=== PATIENT | female | born 1985 | race Caucasian/White ===

== ENCOUNTER → 2016-06-02 | Outpatient (CLI) | payer BC, OTHER ==
[~2016-06-02] MED LIST: ALBU0.5N2 NEB; ALBU18002 PO; BUPR150T5 PO; CEPH500C2 PO; DULO60CA44 PO; EPIN1INJ37 IM; ESOM1CAP34 PO; HYDR-5688 PO; IMT100 PO; JNL12021 PO; LAMO100T16 PO; LAMO200T38 PO; LEVO125T72 PO; LURA1TAB2 PO; METO1TAB71 PO; MIRT15TA3 PO; MONT1TAB3 PO; NRN800 PO; NXM/40 PO; OXYC1TAB3 PO; PRED10TA PO; SNG10 PO; SYN125 PO; ULT50 PO
--- NOTE | 2016-06-02 15:27 | DIAGNOSTIC IMAGING REPORT ---
MRI OF THE LEFT KNEE CLINICAL HISTORY: Left knee pain. COMPARISON STUDY: No priors. TECHNIQUE: MRI of the left knee was performed utilizing proton density, T1, and T2-weighted sequences in the axial, sagittal, coronal planes. IV contrast was not administered for this examination. The examination is significantly degraded by open MRI technique. Interpretation is suboptimal without plain film correlate. FINDINGS: Menisci: The medial and lateral menisci are intact. Ligaments: The anterior and posterior cruciate ligaments are intact. There is mild thickening and irregularity of the medial collateral ligament suggesting age indeterminant injury. The fibers appear intact and there is no surrounding fluid/edema. The lateral collateral ligament complex appears preserved. Extensor mechanism: The extensor mechanism is intact. Hoffa's fat pad is normal in appearance. Articular cartilage and bone: The articular cartilage appears maintained all 3 compartments. Normal marrow signal is preserved of the visualized bony structures. Joint effusion: Trace. Soft tissues: There is pretibial and prepatellar soft tissue edema. The musculature surrounding the knee joint demonstrates symmetric atrophy. The musculature is normal in signal intensity. IMPRESSION: 1. There is mild thickening and irregularity of the medial collateral ligament suggesting age indeterminant injury. There is no surrounding edema and this may be chronic. The fibers of the liver appear intact. Clinical correlation will be required. 2. There is no evidence of meniscal injury. The cruciate ligaments and the lateral collateral complex are preserved. 3. Pretibial and prepatellar soft tissue edema is noted. Electronically signed by: Jacob Choudhary M.D. 06/02/2016 3:25 PM Dictated Date/Time: 06/02/2016 3:17 PM
== END | disposition home or self-care (01) ==
LOC: C.OPENMRI 13:46
PROVIDERS: ATTEND Family Medicine
DX: M25.562 Pain in left knee (principal)

== ENCOUNTER 2016-11-07 17:13 | Emergency (ER) | payer BC, OTHER ==
[~2016-11-07] VITALS: Ht 158.8 cm; Wt 118.3 kg
[~2016-11-07 17:13] MED LIST changes: -BUPR150T5 PO; -CEPH500C2 PO; -EPIN1INJ37 IM; -ESOM1CAP34 PO; -HYDR-5688 PO; -IMT100 PO; -LAMO200T38 PO; -MIRT15TA3 PO; -OXYC1TAB3 PO; -PRED10TA PO; -SNG10 PO; -SYN125 PO; -ULT50 PO
[2016-11-07 17:19] VITALS: TEMP 36.5; Ht 158.8 cm; Wt 118.3 kg
[2016-11-07] MEDS ORDERED: SODIUM CHLORIDE 0.9% 1000ML 1,000 ML IV STA (17:58)
[2016-11-07] MEDS ORDERED: KETOROLAC TROMETHAMINE 30 MG/ML VIAL IV STA (17:58)
[2016-11-07] MEDS ORDERED: ONDANSETRON INJ 2 MG/ML 2 ML VIAL IV STA (17:58)
--- NOTE | 2016-11-07 18:36 | EMERGENCY ROOM VISIT NOTE ---
History Report prepared by Paulina: Shanell Mason Under the Supervision of: Dr. Subhash Elizabeth D.O. First contact with patient: 17:49 Chief Complaint: RIB PAIN Stated Complaint: RT RIB PAIN History of Present Illness The patient is a 30 year old female who presents to the Emergency Room with complaints of sharp constant right rib pain that started a couple months ago. The patient saw her PCP two days ago and was put on Prednisone. The patient states that her PCP believes her pain is nerve related. She also states that her pain worsens with movement. She denies sob, swelling, abdominal pain, or leg pain. The patient was told to come into the ED by her PCP. She has a history of thyroid disease, bipolar disorder and social anxiety. The patient has had cholecystectomy, appendectomy, and her tonsils and adenoids removed. The patient denies any falls or injuries. Source of History: patient Onset: a couple months ago Position: other (right rib) Quality: sharp Timing: constant Modifying Factors (Worsening): movement Associated Symptoms: No SOB, No abdominal pain Note: Pt denies swelling or leg pain Review of Systems See HPI for pertinent positives & negatives. A total of 10 systems reviewed and were otherwise negative. 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 (16) Upper respiratory infection Surgical Problems: (1) Appendectomy (2) section (3) History of - tubal ligation (4) Hx of cholecystectomy Family History Diabetes mellitus Heart disease Social History Smoking Status: Never Smoker Alcohol Use: none Drug Use: none Marital Status: Housing Status: lives with family Occupation Status: unemployed Current/Historical Medications Scheduled Bupropion Hcl (Bupropion Hcl Xl), 150 MG PO QAM Cephalexin Monohydrate (Keflex), 500 MG PO QID Esomeprazole Magnesium (Esomeprazole Magnesium), 40 MG PO BID Ethinyl Estradiol/Norethindr (Junel 04/04), 1 TAB PO DAILY Gabapentin (Gabapentin), 800 MG PO TID Lamotrigine (Lamictal), 200 MG PO BID Levothyroxine Sodium (Synthroid), 125 MCG PO DAILY Lurasidone Hcl (Latuda), 120 MG PO QPM Metoprolol Succinate (Toprolxl (Toprol-Xl), 200 MG PO DAILY Mirtazapine (Remeron), 15 MG PO HS Montelukast Sod (Montelukast Sodium), 10 MG PO HS Prednisone (Prednisone), 10 MG PO UD Scheduled PRN Albuterol Sulfate (Proair Respiclick), 2 PUFFS PO QID PRN for SOB/Wheezing Epinephrine (Epinephrine), 0.3 MG IM UD PRN for ALLERGIC REACTION Oxycodone Immediate Rel Tab (Roxicodone Ir), 1-2 TAB PO Q4H PRN for Severe Pain Sumatriptan Succinate (Imitrex), 100 MG PO UD PRN for Migraine Tramadol HCl (Tramadol HCl), 50 MG PO Q8 PRN for Pain Allergies Coded Allergies: Latex1 -Allergic Contact Dermititis (Verified Allergy, Intermediate, HIVES , 03/10/16) Benzoyl Peroxide (Verified Allergy, Mild, RASH, 03/10/16) BEE STING (Verified Allergy, Unknown, ANAPHYLAXIS, 03/10/16) Penicillins (Verified Allergy, Unknown, 03/10/16) Permethrin (Verified Allergy, Unknown, RASH, 03/10/16) Promethazine (Verified Adverse Reaction, Mild, VOMITING , 03/10/16) Physical Exam Vital Signs Date Time Temp Pulse Resp B/P (MAP) Pulse Ox O2 Delivery O2 Flow Rate FiO2 11/07/16 20:40 92 16 161/118 97 11/07/16 19:45 97 16 173/106 97 Room Air 11/07/16 19:30 97 16 176/101 96 Room Air 11/07/16 19:15 102 13 167/110 96 Room Air 11/07/16 19:00 103 21 167/105 96 Room Air 11/07/16 18:43 103 18 178/112 99 Room Air 11/07/16 18:41 101 11/07/16 17:19 36.5 104 18 172/108 97 Room Air Physical Exam GENERAL: Patient is awake, alert, and in no acute distress. Patient is resting comfortably and showing no signs of anxiety EYES: The conjunctivae are clear. The pupils are round and reactive. EARS, NOSE, MOUTH AND THROAT: The nose is without any evidence of any deformity. Mucous membranes are moist tongue is midline NECK: The neck is nontender and supple. CARDIOVASCULAR: Tachycardic rate and rhythm noted there no murmurs rubs or gallops normal S1 normal S2 GASTROINTESTINAL: The abdomen is soft. Bowel sounds are present in all quadrants. Abdomen is nontender BACK: Right CVA tenderness to percussion. No midline tenderness or or step-off noted range of motion in flexion extension as well as rotation no signs of muscle spasm noted MUSCULOSKELETAL/EXTREMITIES: There is no evidence of gross deformity full range of motion is noted in the hips and shoulders SKIN: There is no obvious evidence of any rash. There are no petechiae, pallor or cyanosis noted. NEUROLOGIC: Patient is awake alert and oriented x3 strength is symmetric patellar reflexes are 2+ bilaterally Medical Decision & Procedures ER Provider Diagnostic Interpretation: Radiology results as stated below per my review and radiologist interpretation: CHEST ONE VIEW PORTABLE FINDINGS: Cardiomediastinal silhouette normal. Lungs and pleural spaces clear. Osseous structures normal. Upper abdomen normal. IMPRESSION: 1. No acute cardiopulmonary disease. Electronically signed by: Padilla Kamara M.D. ABD/PELVIS NO IV OR ORAL CONT FINDINGS: Lung bases are clear. No evidence of pneumoperitoneum. The imaged inferior cardiac chambers are unremarkable. Hepatomegaly is noted with hepatosteatosis. Prior cholecystectomy. Spleen, pancreas and adrenal glands are within normal limits. Kidneys, ureters, urinary bladder, uterus and adnexa are unremarkable. No renal calculi or hydronephrosis. The abdominal aorta is normal in both course and caliber. No bulky retroperitoneal adenopathy. There is minimal nonspecific stranding surrounding the superior mesenteric artery. There is no bowel obstruction. The appendix is not definitively seen, however no secondary evidence of acute appendicitis. No right lower quadrant inflammatory changes. Note is made of diastases recti. Small fat filled umbilical hernia is noted with diastases of 1.4 cm. Soft tissues are unremarkable with patient obesity noted. The bones appear intact. Posterior disc osteophyte complex formation noted at L5-S1. IMPRESSION: 1. No acute intra-abdominal or intrapelvic abnormality identified. No evidence of acute appendicitis or bowel obstruction. 2. Hepatosteatosis with hepatomegaly. 3. Prior cholecystectomy. 4. Diastases recti noted with small fat filled periumbilical hernia. The above report was generated using voice recognition software. It may contain grammatical, syntax or spelling errors. Electronically signed by: Naveen Hodges M.D. Laboratory Results 11/07/16 18:14 Red Blood Count 4.61, Mean Corpuscular Volume 88.9, Mean Corpuscular Hemoglobin 30.2, Mean Corpuscular Hemoglobin Concent 33.9, Mean Platelet Volume 9.7, Neutrophils (%) (Auto) 64.2, Lymphocytes (%) (Auto) 26.7, Monocytes (%) (Auto) 7.7, Eosinophils (%) (Auto) 0.3, Basophils (%) (Auto) 0.3, Neutrophils # (Auto) 9.35, Lymphocytes # (Auto) 3.89, Monocytes # (Auto) 1.12, Eosinophils # (Auto) 0.05, Basophils # (Auto) 0.04 11/07/16 18:14 Test 11/07/16 18:14 11/07/16 18:24 White Blood Count 14.56 K/uL (4.8-10.8) Red Blood Count 4.61 M/uL (4.2-5.4) Hemoglobin 13.9 g/dL (12.0-16.0) Hematocrit 41.0 % (37-47) Mean Corpuscular Volume 88.9 fL (80-100) Mean Corpuscular Hemoglobin 30.2 pg (25-34) Mean Corpuscular Hemoglobin Concent 33.9 g/dl (32-36) Platelet Count 254 K/uL (130-400) Mean Platelet Volume 9.7 fL (7.4-10.4) Neutrophils (%) (Auto) 64.2 % Lymphocytes (%) (Auto) 26.7 % Monocytes (%) (Auto) 7.7 % Eosinophils (%) (Auto) 0.3 % Basophils (%) (Auto) 0.3 % Neutrophils # (Auto) 9.35 K/uL (1.4-6.5) Lymphocytes # (Auto) 3.89 K/uL (1.2-3.4) Monocytes # (Auto) 1.12 K/uL (0.11-0.59) Eosinophils # (Auto) 0.05 K/uL (0-0.5) Basophils # (Auto) 0.04 K/uL (0-0.2) RDW Standard Deviation 39.7 fL (36.4-46.3) RDW Coefficient of Variation 12.4 % (11.5-14.5) Immature Granulocyte % (Auto) 0.8 % Immature Granulocyte # (Auto) 0.11 K/uL (0.00-0.02) Prothrombin Time 9.8 SECONDS (9.0-12.0) Prothromb Time International Ratio 0.9 (0.9-1.1) Activated Partial Thromboplast Time 24.8 SECONDS (21.0-31.0) Partial Thromboplastin Ratio 1.0 Urine Color YELLOW Urine Appearance CLOUDY (CLEAR) Urine pH 6.0 (4.5-7.5) Urine Specific [place] 1.028 (1.000-1.030) Urine Protein TRACE (NEG) Urine Glucose (UA) NEG (NEG) Urine Ketones NEG (NEG) Urine Occult Blood TRACE (NEG) Urine Nitrite POS (NEG) Urine Bilirubin NEG (NEG) Urine Urobilinogen NEG (NEG) Urine Leukocyte Esterase MODERATE (NEG) Urine WBC (Auto) >30 /hpf (0-5) Urine RBC (Auto) 5-10 /hpf (0-4) Urine Hyaline Casts (Auto) 1-5 /lpf (0-5) Urine Epithelial Cells (Auto) >30 /lpf (0-5) Urine Bacteria (Auto) 4+ (NEG) Anion Gap 7.0 mmol/L (3-11) Est Creatinine Clear Calc Drug Dose 105.9 ml/min Estimated GFR () 93.0 Estimated GFR (Non- 80.3 BUN/Creatinine Ratio 15.3 (10-20) Calcium Level 9.5 mg/dl (8.5-10.1) Total Bilirubin 0.2 mg/dl (0.2-1) Direct Bilirubin < 0.1 mg/dl (0-0.2) Aspartate Amino Transf (AST/SGOT) 15 U/L (15-37) Alanine Aminotransferase (ALT/SGPT) 20 U/L (12-78) Alkaline Phosphatase 119 U/L (45-117) Troponin I < 0.015 ng/ml (0-0.045) Total Protein 7.9 gm/dl (6.4-8.2) Albumin 3.6 gm/dl (3.4-5.0) Lipase 136 U/L (73-393) Human Chorionic Gonadotropin, Qual NEG (NEG) Bedside D-Dimer 265 ng/mlFEU (0-450) Laboratory results per my review. Medications Administered Medications (Trade) Dose Ordered Sig/Jenniffer Route Start Time Stop Time Status Last Admin Dose Admin Ketorolac Tromethamine (Toradol Inj) 30 mg NOW STAT IV 11/07/16 17:58 11/07/16 18:00 DC 11/07/16 18:40 30 MG Sodium Chloride 1,000 ml @ 999 mls/hr Q1H1M STAT IV 11/07/16 17:58 11/07/16 18:58 DC 11/07/16 18:40 999 MLS/HR Ondansetron HCl (Zofran Inj) 4 mg NOW STAT IV 11/07/16 17:58 11/07/16 18:00 DC 11/07/16 18:39 4 MG Ceftriaxone Sodium (Rocephin Inj) 1 gm NOW STAT IV 11/07/16 18:59 11/07/16 19:00 DC 11/07/16 19:06 1 GM Ondansetron HCl (ZOFRAN ODT 4MG Home Pack) 1 homepack UD ONCE PO 11/07/16 20:30 11/07/16 20:31 DC 11/07/16 20:40 1 HOMEPACK Oxycodone HCl (Roxicodone Immediate Rel 5MG Home Pack) 1 homepack UD ONCE PO 11/07/16 20:30 11/07/16 20:31 DC 11/07/16 20:40 1 HOMEPACK ECG Indication: other (rib pain ) Rate (beats per minute): 98 Rhythm: normal sinus Findings: no ectopy Comparison ECG Date: 03/10/16 Change: no significant change ED Course 1750: The patient was evaluated in room A10. A complete history and physical examination were performed. 1757: Zofran Inj 4 mg IV, NSS 1,000 ml @ 999 mls/hr IV, Toradol Inj 30 mg IV. 1858: Rocephin Inj 1 gm IV. 2029: Oxycodone HCL 1 homepack PO, Ondansetron HCl 1 homepack PO. 2037:: Upon reevaluation, the patient is resting. I discussed the results and treatment plan with the patient. She verbalized agreement of the treatment plan. She was discharged home. Medical Decision Differential diagnosis: Etiologies such as musculoskeletal, disc herniation, fracture, aortic disease, metastatic disease, cord compression, discitis, infection, renal colic, gastrointestinal, acute exacerbation of chronic back pain, sciatica, cauda equina, as well as others were entertained. Nursing notes reviewed. The patient is a 30-year-old female who presented to the emergency department for an evaluation of right flank pain. The patient has had ongoing symptoms for the last few weeks. She was seen by her primary care physician and was started on pain medication but her pain worsened so she presented to the emergency Department this evening. Her pain appears to be more consistent with right flank pain. Urinalysis did reveal signs of urinary tract infection. Because of the ongoing pain I was concerned this could be consistent with renal pathology so CT the abdomen and pelvis was obtained. I discussed the patient's laboratory and radiographic studies with her. She was treated with IV fluids IV pain medicine and IV antibiotics for presumed urinary tract infection. She was feeling much better. She was encouraged to rest and avoid any strenuous activity. She was also encouraged to continue all medications as prescribed and follow-up with her primary care physician she is possible. Otherwise she was encouraged to return to the emergency department immediately if symptoms change worsen or the need arises. Medication Reconcilliation Current Medication List: was personally reviewed by me Blood Pressure Screening Patient's blood pressure: Elevated blood pressure Blood pressure disposition: Referred to PCP Impression Primary Impression: Right flank pain Additional Impression: UTI (urinary tract infection) Scribe Attestation The scribe's documentation has been prepared under my direction and personally reviewed by me in its entirety. I confirm that the note above accurately reflects all work, treatment, procedures, and medical decision making performed by me. Departure Information Dispostion Home / Self-Care Prescriptions Oxycodone Immediate Rel Tab (ROXICODONE IR) 5 Mg Tab 1-2 TAB PO Q4H Y for Severe Pain, #24 TAB Prov: Subhash Elizabeth, DO 11/07/16 Cephalexin Monohydrate (KEFLEX) 500 Mg Cap 500 MG PO QID, #28 CAP Prov: Subhash Elizabeth, DO 11/07/16 Referrals Naveen Saunders M.D. (PCP) Forms HOME CARE DOCUMENTATION FORM, IMPORTANT VISIT INFORMATION, WORK / SCHOOL INSTRUCTIONS Patient Instructions My [facility], Urinary Tract Infecs Women Additional Instructions Continue all medications as prescribed. Continue using Motrin and Tylenol as directed for mild pain. Start the antibiotic tomorrow. Return to the emergency department immediately if symptoms change worsen or the need arises. Call your family to schedule a follow-up appointment. Her blood pressure was also elevated today in the emergency department. Be sure to have this rechecked with your family doctor and continue taking her medications for blood pressure. Problem Qualifiers Additional Impression:
--- NOTE | 2016-11-07 18:36 | DIAGNOSTIC IMAGING REPORT ---
CHEST ONE VIEW PORTABLE CLINICAL HISTORY: 30 years-old Female presenting with ABDOMINAL PAIN/GI. TECHNIQUE: Portable upright AP view of the chest was obtained. COMPARISON: 03/10/2016. FINDINGS: Cardiomediastinal silhouette normal. Lungs and pleural spaces clear. Osseous structures normal. Upper abdomen normal. IMPRESSION: 1. No acute cardiopulmonary disease. Electronically signed by: Naveen Hodges M.D. 11/07/2016 6:35 PM Dictated Date/Time: 11/07/2016 6:34 PM
[2016-11-07] MEDS ORDERED: SNG10 PO (18:44)
[2016-11-07] MEDS ORDERED: SYN125 PO (18:44)
[2016-11-07] MEDS ORDERED: IMT100 PO (18:44)
[2016-11-07] MEDS ORDERED: BUPR150T5 PO (18:44)
[2016-11-07] MEDS ORDERED: EPIN1INJ37 IM (18:44)
[2016-11-07] MEDS ORDERED: PRED10TA PO (18:44)
[2016-11-07] MEDS ORDERED: LAMO200T38 PO (18:44)
[2016-11-07] MEDS ORDERED: ULT50 PO (18:44)
[2016-11-07] MEDS ORDERED: MIRT15TA3 PO (18:44)
[2016-11-07] MEDS ORDERED: ESOM1CAP34 PO (18:44)
[2016-11-07 18:50] LABS: BASO % 0.3 %; BASO ABS # 0.04 K/uL (0-0.2); COMPLETE YES; EOS % 0.3 %; IG% 0.8 %; LYMPH % 26.7 %; LYMPH ABS # 3.89 K/uL (1.2-3.4); MEAN CELL VOLUME 88.9 fL (80-100); MEAN CORPUSCULAR HEMOGLOBIN 30.2 pg (25-34); MEAN CORPUSCULAR HGB CONC 33.9 g/dl (32-36); MEAN PLATELET VOLUME 9.7 fL (7.4-10.4); MONO % 7.7 %; NEUT % 64.2 %; PLATELET COUNT 254 K/uL (130-400); RED BLOOD COUNT 4.61 M/uL (4.2-5.4); WHITE BLOOD COUNT 14.56 K/uL (4.8-10.8)
[2016-11-07 18:52] LABS: URINE APPEARANCE CLOUDY (CLEAR); URINE BILIRUBIN NEG (NEG); URINE COLOR YELLOW; URINE EPITHELIAL CELL AUTO >30 /lpf (0-5); URINE NITRITE POS (NEG); URINE SPECIFIC GRAVITY 1.028 (1.000-1.030); UROBILINOGEN NEG (NEG)
[2016-11-07 18:55] LABS: MANUAL MICROSCOPIC REQUIRED? NO; REVIEW REQ? NO
[2016-11-07 18:58] LABS: ALT/SGPT 20 U/L (12-78); AST/SGOT 15 U/L (15-37); BLOOD UREA NITROGEN 14 mg/dl (7-18); BUN/CREATININE RATIO 15.3 (10-20); CALCIUM 9.5 mg/dl (8.5-10.1); CARBON DIOXIDE 28 mmol/L (21-32); CHLORIDE 102 mmol/L (98-107); CREATININE 0.94 mg/dl (0.60-1.20); GLUCOSE 130 mg/dl (70-99); POTASSIUM 3.3 mmol/L (3.5-5.1); SODIUM 137 mmol/L (136-145)
[2016-11-07] MEDS ORDERED: CEFTRIAXONE SOD INJ 1 GM ADDVIAL IV STA (18:59)
[2016-11-07 19:00] LABS: INR 0.9 (0.9-1.1); PROTHROMBIN TIME (PATIENT) 9.8 SECONDS (9.0-12.0)
[2016-11-07 19:03] LABS: ALKALINE PHOSPHATASE 119 U/L (45-117)
[2016-11-07 19:21] LABS: PREG INTERNAL NEGATIVE QC NEG CLEAR BACKGROUND; PREG INTERNAL POSITIVE QC POS CONTROL LINE
--- NOTE | 2016-11-07 20:15 | DIAGNOSTIC IMAGING REPORT ---
ABD/PELVIS NO IV OR ORAL CONT HISTORY: 30 years-old Female acute right-sided flank pain. COMPARISON: CTA of the chest 04/12/2012, pelvic ultrasound 06/20/2010. TECHNIQUE: Multiple axial CT images of the chest were obtained without contrast. A dose lowering technique was used consistent with the principals of JEREMY. FINDINGS: Lung bases are clear. No evidence of pneumoperitoneum. The imaged inferior cardiac chambers are unremarkable. Hepatomegaly is noted with hepatosteatosis. Prior cholecystectomy. Spleen, pancreas and adrenal glands are within normal limits. Kidneys, ureters, urinary bladder, uterus and adnexa are unremarkable. No renal calculi or hydronephrosis. The abdominal aorta is normal in both course and caliber. No bulky retroperitoneal adenopathy. There is minimal nonspecific stranding surrounding the superior mesenteric artery. There is no bowel obstruction. The appendix is not definitively seen, however no secondary evidence of acute appendicitis. No right lower quadrant inflammatory changes. Note is made of diastases recti. Small fat filled umbilical hernia is noted with diastases of 1.4 cm. Soft tissues are unremarkable with patient obesity noted. The bones appear intact. Posterior disc osteophyte complex formation noted at L5-S1. IMPRESSION: 1. No acute intra-abdominal or intrapelvic abnormality identified. No evidence of acute appendicitis or bowel obstruction. 2. Hepatosteatosis with hepatomegaly. 3. Prior cholecystectomy. 4. Diastases recti noted with small fat filled periumbilical hernia. The above report was generated using voice recognition software. It may contain grammatical, syntax or spelling errors. Electronically signed by: Padilla Kamara M.D. 11/07/2016 8:11 PM Dictated Date/Time: 11/07/2016 8:05 PM
[2016-11-07] MEDS ORDERED: OXYC1TAB3 PO (20:22)
[2016-11-07] MEDS ORDERED: CEPH500C2 PO (20:22)
[2016-11-07] MEDS ORDERED: ONDANSETRON HOME PACK 4MG OD TAB PO ONE (20:30)
[2016-11-07] MEDS ORDERED: OXYCODONE IR HOME PACK PO ONE (20:30)
[2016-11-07 20:40] VITALS: BP 161/118; PULSE 92; O2SAT 97
== END 2016-11-07 20:42 | disposition home or self-care (01) ==
LOC: C.EDB 17:14 → C.EDA 20:42
DX: N39.0 Urinary tract infection, site not specified (principal); F31.9 Bipolar disorder, unspecified; F41.8 Other specified anxiety disorders; Z90.49 Acquired absence of other specified parts of digestive tract; J45.909 Unspecified asthma, uncomplicated; K21.9 Gastro-esophageal reflux disease without esophagitis; E03.9 Hypothyroidism, unspecified; Z98.51 Tubal ligation status; Z83.3 Family history of diabetes mellitus; Z79.899 Other long term (current) drug therapy

== ENCOUNTER 2017-03-25 13:12 | Emergency (ER) | payer BC, OTHER ==
[~2017-03-25] VITALS: Ht 157.5 cm; Wt 115.8 kg
[~2017-03-25 13:12] MED LIST changes: -ALBU0.5N2 NEB; +BUPR150T5 PO; +CEPH500C2 PO; -DULO60CA44 PO; +EPIN0.3I14 IM; +ESOM1CAP34 PO; +IMT100 PO; -LAMO100T16 PO; +LAMO200T35 PO; -LEVO125T72 PO; -METO1TAB71 PO; +METO200T32 PO; +MIRT15TA3 PO; -MONT1TAB3 PO; -NXM/40 PO; +OXYC1TAB3 PO; +PRED10TA PO; +SNG10 PO; +SYN125 PO; +ULT50 PO
[2017-03-25 13:16] VITALS: TEMP 36.8; Ht 157.5 cm; Wt 115.8 kg
[2017-03-25] MEDS ORDERED: OPTIRAY 320 IV PRN (14:15)
[2017-03-25] MEDS ORDERED: METRONIDAZOLE 500MG / 100ML NSS IV STA (14:35)
[2017-03-25] MEDS ORDERED: CEFTRIAXONE SOD INJ 1 GM ADDVIAL IV STA (14:35)
[2017-03-25] MEDS ORDERED: VANCOMYCIN INJ 2,200 MG in SODIUM CHLORIDE 0.9% 500ML 500 ML IV STA (14:35)
[2017-03-25 14:39] LABS: BASO % 0.2 %; BASO ABS # 0.02 K/uL (0-0.2); EOS % 1.2 %; EOS ABS # 0.11 K/uL (0-0.5); HEMATOCRIT 40.2 % (37-47); IG# 0.04 K/uL (0.00-0.02); LYMPH % 21.2 %; LYMPH ABS # 1.94 K/uL (1.2-3.4); MEAN CELL VOLUME 88.4 fL (80-100); MEAN CORPUSCULAR HEMOGLOBIN 30.8 pg (25-34); MEAN CORPUSCULAR HGB CONC 34.8 g/dl (32-36); MONO % 7.6 %; NEUT % 69.4 %; NEUT ABS # 6.35 K/uL (1.4-6.5); PLATELET COUNT 237 K/uL (130-400); RED CELL DISTRIBUTION WIDTH CV 12.4 % (11.5-14.5); WHITE BLOOD COUNT 9.16 K/uL (4.8-10.8)
[2017-03-25] MEDS ORDERED: CLIN1CAP51 PO (14:51)
[2017-03-25 14:55] LABS: PTT PATIENT 28.9 SECONDS (21.0-31.0)
[2017-03-25] MEDS ORDERED: MoRPHine SULFATE 4 MG/ML 1 ML CARP\\VIAL IV STA (14:58)
[2017-03-25 15:02] LABS: CALCIUM 9.3 mg/dl (8.5-10.1); CREATININE 0.86 mg/dl (0.60-1.20); POTASSIUM 3.2 mmol/L (3.5-5.1)
[2017-03-25] MEDS ORDERED: POTASSIUM CHLR 20 MEQ / WTR 20 MEQ in PREMIXED WATER 100 ML IV STA (15:20)
[2017-03-25] MEDS ORDERED: MAGNESIUM SULFATE 1GM / D5W 1 GM BAG IV STA (15:20)
[2017-03-25] MEDS ORDERED: HYDROmorphone INJ 0.5 MG/0.5 ML SYR IV STA ×2 (16:14→20:52)
--- NOTE | 2017-03-25 16:16 | DIAGNOSTIC IMAGING REPORT ---
CT SOFT TISSUE NECK WITH CT DOSE: 720.58 mGy.cm CLINICAL HISTORY: Severe sore throat. Possible peritonsillar abscess. TECHNIQUE: Helical images were acquired during intravenous administration of 116 cc of Optiray 320. A dose lowering technique was utilized adhering to the principles of ALARA. COMPARISON STUDY: None. FINDINGS: The visualized portions of the lung apices are unremarkable. No thyroid masses are visualized. No salivary gland masses are visualized. Mildly prominent right submandibular lymph nodes are likely reactive There are no fluid collections suspicious for abscess. There is no evidence of airway compromise. No mucosal space masses are visualized. There is edema of the right masseter and buccinator muscle. There is subtle infiltration of the surrounding fat.] On a statistical basis this is secondary to an odontogenic etiology. There is minimal secondary mass effect/edema on the right peritonsillar region. This is likely secondary phenomenon. There is no evidence of abscess. IMPRESSION: 1. Edema of the right masseter and buccinator muscle . There is infiltration of the surrounding fat. On a statistical basis this is secondary to an odontogenic etiology. 2. Minimal secondary mass effect/edema on the right peritonsillar region. This is likely secondary. There is no evidence of abscess. Electronically signed by: Albert Early M.D. 03/25/2017 4:15 PM Dictated Date/Time: 03/25/2017 4:01 PM
--- NOTE | 2017-03-25 16:35 | EMERGENCY ROOM VISIT NOTE ---
History Report prepared by Paulina: Shabana Evans Under the Supervision of: Dr. Sabino Robledo M.D. First contact with patient: 13:21 Chief Complaint: THROAT PAIN/INJURY Stated Complaint: SWOLLEN LYMPH NODE,PAINFUL LOCKED JAW History of Present Illness The patient is a 31 year old white female with a past medical history of thyroid disease, bipolar disorder, TMJ who presents to the ED with a cc of persistent throat pain beginning 3 days ago. She states the pain is excruciating. She has tried ibuprofen and tramadol to no significant relief. She was started on clindamycin yesterday. Positive throat swelling, locked jaw, fever. Negative dental pain, chills, nausea, vomiting, sinus congestion, cough, leg swelling, abdominal pain. She denies any alcohol or tobacco use. She last ate or drank yesterday. Source of History: patient Onset: 3 days ago Position: throat Symptom Intensity: excruciating Quality: other (pain) Timing: other (persistent) Associated Symptoms: + fevers, No chills, No cough, No nausea, No vomiting, No abdominal pain Note: Pt reports throat swelling, locked jaw. Pt denies dental pain, sinus congestion , leg swelling. Review of Systems See HPI for pertinent positives and negatives. A total of ten systems were reviewed and were otherwise negative. 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 (16) Upper respiratory infection Surgical Problems: (1) Appendectomy (2) section (3) History of - tubal ligation (4) Hx of cholecystectomy Family History Diabetes mellitus Heart disease Social History Smoking Status: Never Smoker Alcohol Use: none Drug Use: none Marital Status: Housing Status: lives with family Occupation Status: unemployed Current/Historical Medications Scheduled Bupropion Hcl (Bupropion Hcl Xl), 150 MG PO QAM Clindamycin HCl (Clindamycin HCl), 1 CAP PO QID Esomeprazole Magnesium (Esomeprazole Magnesium), 40 MG PO BID Ethinyl Estradiol/Norethindr (June04/04), 1 TAB PO DAILY Gabapentin (Gabapentin), 800 MG PO TID Lamotrigine (Lamictal), 200 MG PO BID Levothyroxine Sodium (Synthroid), 125 MCG PO DAILY Lurasidone Hcl (Latuda), 120 MG PO QPM Metoprolol Succinate (Toprolxl (Toprol-Xl), 200 MG PO DAILY Mirtazapine (Remeron), 15 MG PO HS Montelukast Sod (Montelukast Sodium), 10 MG PO HS Prednisone (Prednisone), 10 MG PO UD Scheduled PRN Albuterol Sulfate (Proair Respiclick), 2 PUFFS PO QID PRN for SOB/Wheezing Epinephrine (Epinephrine), 0.3 MG IM UD PRN for ALLERGIC REACTION Oxycodone Immediate Rel Tab (Roxicodone Ir), 1-2 TAB PO Q4H PRN for Severe Pain Oxycodone Immediate Rel Tab (Roxicodone Ir), 5 MG PO Q6H PRN for Pain Sumatriptan Succinate (Imitrex), 100 MG PO UD PRN for Migraine Tramadol HCl (Tramadol HCl), 50 MG PO Q8 PRN for Pain Allergies Coded Allergies: Latex1 -Allergic Contact Dermititis (Verified Allergy, Intermediate, HIVES , 03/25/17) Benzoyl Peroxide (Verified Allergy, Mild, RASH, 03/25/17) BEE STING (Verified Allergy, Unknown, ANAPHYLAXIS, 03/25/17) Penicillins (Verified Allergy, Unknown, 03/25/17) Permethrin (Verified Allergy, Unknown, RASH, 03/25/17) Promethazine (Verified Adverse Reaction, Mild, VOMITING , 03/25/17) Physical Exam Vital Signs Date Time Temp Pulse Resp B/P (MAP) Pulse Ox O2 Delivery O2 Flow Rate FiO2 03/25/17 21:28 120 165/113 03/25/17 20:45 167/106 96 03/25/17 20:30 114 18 03/25/17 20:00 122 14 03/25/17 19:36 112 03/25/17 18:42 113 18 174/95 99 Room Air 03/25/17 16:10 106 20 161/110 97 Room Air 03/25/17 13:16 36.8 97 18 181/108 98 Room Air Physical Exam GENERAL: Awake, alert, well-appearing, NAD HENT: Normocephalic, atraumatic. Right sided submandibular swelling and TTP. No sublingual swelling or pain. Posterior pharynx only partially visualized 2/2 to mouth pain. EYES: Normal conjunctiva. Sclera non-icteric. NECK: Mild pain w/ neck extension. No nuchal rigidity. FROM laterally. No stridor. RESPIRATORY: CTAB, no rhonchi, wheezing, crackles CARDIAC: RRR, no MRG ABDOMEN: Soft, NTND, BS+ MSK: No chest wall TTP, no LE edema NEURO: GCS 15, CN 2-12 intact, moves all 4s on command SKIN: No rash or jaundice noted. Medical Decision & Procedures ER Provider Diagnostic Interpretation: Radiology results as stated below per my review and radiologist interpretation: CT SOFT TISSUE NECK WITH CT DOSE: 720.58 mGy.cm CLINICAL HISTORY: Severe sore throat. Possible peritonsillar abscess. TECHNIQUE: Helical images were acquired during intravenous administration of 116 cc of Optiray 320. A dose lowering technique was utilized adhering to the principles of ALARA. COMPARISON STUDY: None. FINDINGS: The visualized portions of the lung apices are unremarkable. No thyroid masses are visualized. No salivary gland masses are visualized. Mildly prominent right submandibular lymph nodes are likely reactive There are no fluid collections suspicious for abscess. There is no evidence of airway compromise. No mucosal space masses are visualized. There is edema of the right masseter and buccinator muscle. There is subtle infiltration of the surrounding fat. On a statistical basis this is secondary to an odontogenic etiology. There is minimal secondary mass effect/edema on the right peritonsillar region. This is likely secondary phenomenon. There is no evidence of abscess. IMPRESSION: 1. Edema of the right masseter and buccinator muscle . There is infiltration of the surrounding fat. On a statistical basis this is secondary to an odontogenic etiology. 2. Minimal secondary mass effect/edema on the right peritonsillar region. This is likely secondary. There is no evidence of abscess. Electronically signed by: Albert Early M.D. 03/25/2017 4:15 PM Dictated Date/Time: 03/25/2017 4:01 PM Laboratory Results 03/25/17 14:25 Red Blood Count 4.55, Mean Corpuscular Volume 88.4, Mean Corpuscular Hemoglobin 30.8, Mean Corpuscular Hemoglobin Concent 34.8, Mean Platelet Volume 9.0, Neutrophils (%) (Auto) 69.4, Lymphocytes (%) (Auto) 21.2, Monocytes (%) (Auto) 7.6, Eosinophils (%) (Auto) 1.2, Basophils (%) (Auto) 0.2, Neutrophils # (Auto) 6.35, Lymphocytes # (Auto) 1.94, Monocytes # (Auto) 0.70, Eosinophils # (Auto) 0.11, Basophils # (Auto) 0.02 03/25/17 14:25 Test 03/25/17 14:25 White Blood Count 9.16 K/uL (4.8-10.8) Red Blood Count 4.55 M/uL (4.2-5.4) Hemoglobin 14.0 g/dL (12.0-16.0) Hematocrit 40.2 % (37-47) Mean Corpuscular Volume 88.4 fL (80-100) Mean Corpuscular Hemoglobin 30.8 pg (25-34) Mean Corpuscular Hemoglobin Concent 34.8 g/dl (32-36) Platelet Count 237 K/uL (130-400) Mean Platelet Volume 9.0 fL (7.4-10.4) Neutrophils (%) (Auto) 69.4 % Lymphocytes (%) (Auto) 21.2 % Monocytes (%) (Auto) 7.6 % Eosinophils (%) (Auto) 1.2 % Basophils (%) (Auto) 0.2 % Neutrophils # (Auto) 6.35 K/uL (1.4-6.5) Lymphocytes # (Auto) 1.94 K/uL (1.2-3.4) Monocytes # (Auto) 0.70 K/uL (0.11-0.59) Eosinophils # (Auto) 0.11 K/uL (0-0.5) Basophils # (Auto) 0.02 K/uL (0-0.2) RDW Standard Deviation 40.0 fL (36.4-46.3) RDW Coefficient of Variation 12.4 % (11.5-14.5) Immature Granulocyte % (Auto) 0.4 % Immature Granulocyte # (Auto) 0.04 K/uL (0.00-0.02) Prothrombin Time 10.3 SECONDS (9.0-12.0) Prothromb Time International Ratio 1.0 (0.9-1.1) Activated Partial Thromboplast Time 28.9 SECONDS (21.0-31.0) Partial Thromboplastin Ratio 1.1 Anion Gap 9.0 mmol/L (3-11) Est Creatinine Clear Calc Drug Dose 112.2 ml/min Estimated GFR () 102.9 Estimated GFR (Non- 88.8 BUN/Creatinine Ratio 8.1 (10-20) Calcium Level 9.3 mg/dl (8.5-10.1) Monoscreen NEG (NEG) Laboratory results reviewed by me Medications Administered Medications (Trade) Dose Ordered Sig/Jenniffer Route Start Time Stop Time Status Last Admin Dose Admin Vancomycin HCl 2200 mg/Sodium Chloride 544 ml @ 200 mls/hr ONE STAT IV 03/25/17 14:35 03/25/17 17:18 DC 03/25/17 16:07 200 MLS/HR Ceftriaxone Sodium (Rocephin Inj) 1 gm NOW STAT IV 03/25/17 14:35 03/25/17 14:37 DC 03/25/17 15:15 1 GM Metronidazole (Flagyl / Nss) 500 mg NOW STAT IV 03/25/17 14:35 03/25/17 14:37 DC 03/25/17 17:52 500 MG Morphine Sulfate (MoRPHine SULFATE INJ) 4 mg NOW STAT IV 03/25/17 14:58 03/25/17 14:59 DC 03/25/17 15:17 4 MG Magnesium Sulfate (Magnesium Sulfate) 1 gm NOW STAT IV 03/25/17 15:20 03/25/17 16:49 DC 03/25/17 17:49 1 GM Hydromorphone HCl (Dilaudid Inj) 0.5 mg NOW STAT IV 03/25/17 16:14 03/25/17 16:15 DC 03/25/17 16:25 0.5 MG Potassium Chloride 10 meq/ Prmx 100 ml @ 100 mls/hr TODAY@1520,1620 IV 03/25/17 15:20 03/25/17 19:00 DC 03/25/17 19:09 100 MLS/HR Oxycodone HCl (Roxicodone Immediate Rel Tab) 5 mg STK-MED ONCE .ROUTE 03/25/17 19:02 03/25/17 19:03 DC 03/25/17 19:02 5 MG Oxycodone HCl (Roxicodone Immediate Rel 5MG Home Pack) 1 homepack UD ONCE PO 03/25/17 20:45 03/25/17 20:46 DC 03/25/17 20:53 1 HOMEPACK Hydromorphone HCl (Dilaudid Inj) 0.5 mg NOW STAT IV 03/25/17 20:52 03/25/17 20:53 DC 03/25/17 21:15 0.5 MG ED Course 1354: The patient was evaluated in room B3B. A complete history and physical exam was performed. 1656: I reevaluated the patient. Discussed results and discharge instructions: she verbalized understanding and agreement. The patient is ready for discharge. Medical Decision The patient is a 31 year old white female with a past medical history of thyroid disease, bipolar disorder, TMJ who presents to the ED with a cc of persistent throat pain beginning 3 days ago. Differential diagnosis: Etiologies such as viral syndrome, tonsillitis, streptococcal pharyngitis, mononucleosis, peritonsillar abscess, retropharyngeal abscess, otitis, pneumonia , influenza, as well as others were entertained. Patient was seen and evaluated the bedside. Patient has complained of some right-sided throat. Patient denies any shortness of breath. On exam the patient does have mild trismus however the patient has no stridor. Patient did have blood work that was completed along with a CT soft tissue neck. Patient was given broad-spectrum antibiotics. Patient's CT does show some reactive lymphadenopathy some swelling of the muscle. There is no evidence of abscess. There is no evidence of airway compromise. Patient's blood work was fairly unremarkable. Patient had a normal white count and normal glucose. Patient did have mild hypokalemia which was repleted. Patient's CT did show some swelling of the buccal and masseter muscle. I did recheck her mouth exam and the patient does not have any signs of odontologic infection. There is some reactive lymphadenitis as well. There is no evidence of airway compromise or abscess. Patient is able to take by mouth medications. Patient was told to continue to take her antibiotics as prescribed. Myself and the pharmacist did review these medications and we therefore appropriate at this time. Patient was told to follow with her PCP. Patient was deemed suitable for outpatient follow-up and treatment at this time. Patient was given strict follow-up, discharge, and return precautions. All questions were answered. Patient was deemed suitable for outpatient follow-up at this time. Patient agreed with the plan of care and was safely discharged home. Prior to discharge I was notified the patient's heart rate was greater than 110. This had been after the patient had been waiting in the department for a ride for several hours. Upon reassessment of the patient the patient was very well-appearing, was talking, and stated that she did have some pain related to the jaw swelling. No evidence of airway compromise. The patient is fairly young and relatively healthy with a normal white blood cell count and no evidence of abscess on CT. The patient was given 2 cups of water which she tolerated without issue. Patient was told she needs to continue ample fluid hydration at home. Again because of the patient's nontoxic appearance with pain I think this is most likely reason for the tachycardia as the patient has a normal white blood cell count and normal hemoglobin. Patient was subsequently discharged home. Medication Reconcilliation Current Medication List: was personally reviewed by me Blood Pressure Screening Patient's blood pressure: Elevated blood pressure Blood pressure disposition: Referred to PCP Impression Primary Impression: Lymphadenitis Additional Impression: Hypokalemia Scribe Attestation The scribe's documentation has been prepared under my direction and personally reviewed by me in its entirety. I confirm that the note above accurately reflects all work, treatment, procedures, and medical decision making performed by me. Departure Information Dispostion Home / Self-Care Prescriptions Oxycodone Immediate Rel Tab (ROXICODONE IR) 5 Mg Tab 5 MG PO Q6H Y for Pain, #20 TAB Prov: Sabino Robledo M.D. 03/25/17 Referrals Naveen Saunders M.D. (PCP) Patient Instructions ED Neck Pain No Trauma, Hypokalemia Md, [facility] Additional Instructions Please return to the emergency department if you have worsening or recurrent symptoms not amenable to at-home treatment. Please call for a follow-up appointment with her primary care physician. Please take your medications as prescribed. If you have other concerns and/or complaints please feel free to also call your primary care physician's office or return the ED for further evaluation, management, and treatment. You received narcotic or benzodiazepene medication while in the emergency room today. This is an addictive medication that may cause drowziness as well as constipation. Do not drive, operate heavy machinery, or drink alcohol under the influence of this medication. You may take 600 mg Ibuprofen every 6 hours as needed for pain with food for no more than 2 consecutive days. You may take tylenol 1000 mg every 6 hours as needed for pain. You may take motrin and tylenol separately or at the same time. If you still have pain you may try the narcotic medicine. Please use this medications with caution. The oxycodone does have narcotic and can be habit forming. Take your medications as prescribed. If taking an antibiotic consider taking a probiotic and/or eating yogurt, but at the least, please take with food as it can cause upset stomach. You have been examined and treated today on an emergency basis only. This is not a substitute for, or an effort to provide, complete comprehensive medical care. It is impossible to recognize and treat all injuries or illnesses in a single emergency department visit. It is therefore important that you follow up closely with [facility], your PCP, and/or your specialist(s). Call as soon as possible for an appointment. Thank you for your time and consideration. I look forward to speaking with you again soon. Please don't hesitate to call us if you have any questions. Problem Qualifiers
[2017-03-25] MEDS ORDERED: METRONIDAZOLE 500MG / 100ML NSS ONE (17:45)
[2017-03-25] MEDS ORDERED: MAGNESIUM SULFATE 1GM / D5W 1 GM BAG ONE (17:47)
[2017-03-25] MEDS ORDERED: OXYC1TAB3 PO (17:51)
[2017-03-25] MEDS: POTASSIUM CHLR 10MEQ / WTR IV SCH ×2 (18:02→19:09)
[2017-03-25] MEDS ORDERED: OXYCODONE HCL IR 5 MG TAB (IMMEDIATE RELEASE) ONE (19:02)
[2017-03-25] MEDS ORDERED: OXYCODONE HCL IR 5 MG TAB (IMMEDIATE RELEASE) PO STA (19:14)
[2017-03-25 20:45] VITALS: O2SAT 96
[2017-03-25] MEDS ORDERED: OXYCODONE IR HOME PACK PO ONE (20:45)
[2017-03-25 21:28] VITALS: BP 165/113; PULSE 120
== END 2017-03-25 21:21 | disposition home or self-care (01) ==
LOC: C.EDB 13:14
DX: I88.9 Nonspecific lymphadenitis, unspecified (principal); E87.6 Hypokalemia; J45.909 Unspecified asthma, uncomplicated; F31.9 Bipolar disorder, unspecified; K21.9 Gastro-esophageal reflux disease without esophagitis; E03.9 Hypothyroidism, unspecified; Z79.52 Long term (current) use of systemic steroids; Z79.3 Long term (current) use of hormonal contraceptives; Z83.3 Family history of diabetes mellitus; Z82.49 Family history of ischemic heart disease and other diseases of the circulatory system

== ENCOUNTER 2017-05-11 16:27 | Inpatient (IN) | payer BC, OTHER ==
[~2017-05-11] VITALS: Ht 157.5 cm; Wt 118.7 kg
[~2017-05-11 16:27] MED LIST changes: -CEPH500C2 PO; +CLIN1CAP51 PO; -EPIN0.3I14 IM; -ESOM1CAP34 PO; -IMT100 PO; -LAMO200T35 PO; -MIRT15TA3 PO; -SNG10 PO; -SYN125 PO; -ULT50 PO
[2017-05-11] MEDS ORDERED: CEFEPIME IV 1,000 MG in DEXTROSE 5% 100ML 100 ML IV STA (18:07)
[2017-05-11] MEDS ORDERED: HYDROCODONE/ACETAMIN 5/325MG TAB PO STA (18:42)
[2017-05-11] MEDS ORDERED: WLLXL300 PO (18:43)
[2017-05-11] MEDS ORDERED: CEPH500C PO (18:43)
[2017-05-11] MEDS ORDERED: SULI200T4 PO (18:43)
[2017-05-11] MEDS ORDERED: PROAIR 90 MCG INH (18:43)
[2017-05-11] MEDS ORDERED: SOLI10TA2 PO (18:43)
[2017-05-11] MEDS ORDERED: ALBINS/ INH (18:43)
[2017-05-11] MEDS ORDERED: CETI10TA10 PO (18:43)
[2017-05-11] MEDS ORDERED: METO200T31 PO (18:43)
[2017-05-11] MEDS ORDERED: ADVIN50/60 INH (18:43)
[2017-05-11] MEDS ORDERED: ESOM1CAP34 PO (18:44)
[2017-05-11] MEDS ORDERED: LAMO200T35 PO (18:44)
[2017-05-11] MEDS ORDERED: SYN125 PO (18:44)
[2017-05-11] MEDS ORDERED: SNG10 PO (18:44)
[2017-05-11] MEDS ORDERED: IMT100 PO (18:44)
[2017-05-11] MEDS ORDERED: EPIN0.3I14 IM (18:44)
[2017-05-11] MEDS ORDERED: MIRT15TA3 PO (18:44)
[2017-05-11] MEDS ORDERED: ULT50 PO (18:44)
[2017-05-11] MEDS ORDERED: CLC/300 PO (18:55)
[2017-05-11 19:06] LABS: BASO % 0.3 %; BASO ABS # 0.02 K/uL (0-0.2); EOS % 1.1 %; EOS ABS # 0.08 K/uL (0-0.5); HEMATOCRIT 41.1 % (37-47); HEMOGLOBIN 13.9 g/dL (12.0-16.0); IG# 0.04 K/uL (0.00-0.02); LYMPH % 24.9 %; LYMPH ABS # 1.83 K/uL (1.2-3.4); MEAN CELL VOLUME 89.5 fL (80-100); MEAN CORPUSCULAR HEMOGLOBIN 30.3 pg (25-34); MEAN CORPUSCULAR HGB CONC 33.8 g/dl (32-36); MEAN PLATELET VOLUME 9.3 fL (7.4-10.4); MONO ABS # 0.44 K/uL (0.11-0.59); NEUT % 67.2 %; NEUT ABS # 4.93 K/uL (1.4-6.5); PLATELET COUNT 242 K/uL (130-400); RED CELL DISTRIBUTION WIDTH CV 12.8 % (11.5-14.5); RED CELL DISTRIBUTION WIDTH SD 41.5 fL (36.4-46.3); WHITE BLOOD COUNT 7.34 K/uL (4.8-10.8)
--- NOTE | 2017-05-11 19:15 | EMERGENCY ROOM VISIT NOTE ---
History Report prepared by Paulina: Dakota Wade Under the Supervision of: Dr. Charli Pradhan M.D. First contact with patient: 17:56 Chief Complaint: THROAT PAIN/INJURY Stated Complaint: SWOLLEN GLANDS History of Present Illness The patient is a 31 year old female who presents to the Emergency Room with complaints of constant throat swelling beginning 03/23/17. The patient states that she was referred by her PCP for a swollen gland on the right side of her throat. She notes that her PCP wanted her to received IV antibiotics because the clindamycin and doxycycline that she has been receiving has not been improving her symptoms. She also complains of pain in her throat. She reports that she was also put on tramadol and Tylenol with no relief of her pain. Pt denies LOC, headache, fevers, chills, diaphoresis, visual changes, cough, chest pain, breathing difficulties, nausea, vomiting, abdominal pain, back pain, melena, hematochezia, urinary symptoms, numbness, weakness, rash, tooth pain, or other complaints. Source of History: patient Onset: 03/23/2017 Position: neck Quality: other (swelling) Timing: constant Note: She also complains of throat pain. Review of Systems See HPI for pertinent positives and negatives. A total of ten systems were reviewed and were otherwise negative. Past Medical & Surgical Medical Problems: (1) Asthma (2) Asthma exacerbation (3) Bipolar Disorder, Unspecified (4) Bronchitis (5) Cough (6) Dysphagia (7) GERD (gastroesophageal reflux disease) (8) Hypothyroidism (9) Insulin resistance (10) Jaw pain (11) Laryngitis (12) Lumbar back pain (13) Lumbar Disc Displacement (14) Lumbosacral Neuritis Nos (15) Lymphadenitis (16) TMJ syndrome (17) Upper respiratory infection Surgical Problems: (1) Appendectomy (2) section (3) History of - tubal ligation (4) Hx of cholecystectomy Family History Cancer Diabetes mellitus Heart disease Hypertension Social History Smoking Status: Never Smoker Alcohol Use: none Drug Use: none Marital Status: Housing Status: lives with family Occupation Status: unemployed Current/Historical Medications Scheduled Bupropion HCl (Bupropion HCl Xl), 300 MG PO QAM Cephalexin Monohydrate (Keflex), 500 MG PO TID Clindamycin HCl (Clindamycin HCl), 300 MG PO QID Esomeprazole Magnesium (Esomeprazole Magnesium), 40 MG PO BID Ethinyl Estradiol/Norethindr (Junel 04/04), 1 TAB PO DAILY Fluticasone Prop/Salmeterol (Advair Diskus 500/50 60 Dose), 1 PUFF INH BID Gabapentin (Gabapentin), 800 MG PO TID Lamotrigine (Lamictal), 200 MG PO BID Levothyroxine Sodium (Synthroid), 125 MCG PO DAILY Lurasidone Hcl (Latuda), 120 MG PO QPM Metoprolol Succinate (Toprol Xl), 200 MG PO DAILY Mirtazapine (Remeron), 15 MG PO HS Montelukast Sod (Montelukast Sodium), 10 MG PO HS Solifenacin (Vesicare), 10 MG PO DAILY [Proair 90 Mcg], 2 PUFF INH Q4 Scheduled PRN Albuterol Sulf (Proventil 0.083% 2.5MG/3ML), 2.5 MG INH Q4 PRN for SOB/Wheezing Epinephrine (Epinephrine), 0.3 MG IM UD PRN for ALLERGIC REACTION Sumatriptan Succinate (Imitrex), 100 MG PO UD PRN for Migraine Tramadol HCl (Tramadol HCl), 50 MG PO Q6 PRN for Pain Allergies Coded Allergies: Eggs or Egg-derived Products (Verified Allergy, Severe, EDEMA, 05/11/17) PT STATES SHE STILL EATS THEM Vinegar (Verified Allergy, Severe, EDEMA OF FACE, LIPS, TONGUE, 05/11/17) Latex1 -Allergic Contact Dermititis (Verified Allergy, Intermediate, HIVES , 03/25/17) Benzoyl Peroxide (Verified Allergy, Mild, RASH, 03/25/17) BEE STING (Verified Allergy, Unknown, ANAPHYLAXIS, 03/25/17) Penicillins (Verified Allergy, Unknown, 03/25/17) Permethrin (Verified Allergy, Unknown, RASH, 03/25/17) Promethazine (Verified Adverse Reaction, Mild, VOMITING , 03/25/17) Physical Exam Vital Signs Date Time Temp Pulse Resp B/P (MAP) Pulse Ox O2 Delivery O2 Flow Rate FiO2 05/11/17 18:42 98 05/11/17 18:40 84 17 149/93 98 Room Air 05/11/17 16:57 100 Room Air 05/11/17 16:55 37.1 83 20 150/100 99 Room Air Physical Exam GENERAL: Awake, alert, well-appearing, in no distress HENT: Normocephalic, atraumatic. Oropharynx unremarkable. EYES: Normal conjunctiva. Sclera non-icteric. NECK: Supple. No nuchal rigidity. FROM. No masses. Right submandibular tenderness, swelling, and mild induration. RESPIRATORY: Clear to auscultation. No wheezes. CARDIAC: Normal rate. Normal rhythm. No murmurs. No rubs. Extremities warm and well perfused. Pulses equal. No JVD. GI: Soft, non-distended. No tenderness to palpation. No rebound or guarding. No masses. RECTAL: Deferred. MUSCULOSKELETAL: Atraumatic. Chest examination reveals no tenderness. The back is symmetrical on inspection without obvious abnormality. There is no CVA tenderness to palpation. No joint edema. LOWER EXTREMITIES: Calves are equal size bilaterally and non-tender. No edema. No discoloration. NEURO: Normal sensorium. No sensory or motor deficits noted. SKIN: No rash or jaundice noted. Medical Decision & Procedures Laboratory Results 05/11/17 18:20 Red Blood Count 4.59, Mean Corpuscular Volume 89.5, Mean Corpuscular Hemoglobin 30.3, Mean Corpuscular Hemoglobin Concent 33.8, Mean Platelet Volume 9.3, Neutrophils (%) (Auto) 67.2, Lymphocytes (%) (Auto) 24.9, Monocytes (%) (Auto) 6.0, Eosinophils (%) (Auto) 1.1, Basophils (%) (Auto) 0.3, Neutrophils # (Auto) 4.93, Lymphocytes # (Auto) 1.83, Monocytes # (Auto) 0.44, Eosinophils # (Auto) 0.08, Basophils # (Auto) 0.02 Test 05/11/17 18:20 White Blood Count 7.34 K/uL (4.8-10.8) Red Blood Count 4.59 M/uL (4.2-5.4) Hemoglobin 13.9 g/dL (12.0-16.0) Hematocrit 41.1 % (37-47) Mean Corpuscular Volume 89.5 fL (80-100) Mean Corpuscular Hemoglobin 30.3 pg (25-34) Mean Corpuscular Hemoglobin Concent 33.8 g/dl (32-36) Platelet Count 242 K/uL (130-400) Mean Platelet Volume 9.3 fL (7.4-10.4) Neutrophils (%) (Auto) 67.2 % Lymphocytes (%) (Auto) 24.9 % Monocytes (%) (Auto) 6.0 % Eosinophils (%) (Auto) 1.1 % Basophils (%) (Auto) 0.3 % Neutrophils # (Auto) 4.93 K/uL (1.4-6.5) Lymphocytes # (Auto) 1.83 K/uL (1.2-3.4) Monocytes # (Auto) 0.44 K/uL (0.11-0.59) Eosinophils # (Auto) 0.08 K/uL (0-0.5) Basophils # (Auto) 0.02 K/uL (0-0.2) RDW Standard Deviation 41.5 fL (36.4-46.3) RDW Coefficient of Variation 12.8 % (11.5-14.5) Immature Granulocyte % (Auto) 0.5 % Immature Granulocyte # (Auto) 0.04 K/uL (0.00-0.02) Laboratory results reviewed by me Medications Administered Medications (Trade) Dose Ordered Sig/Jenniffer Route Start Time Stop Time Status Last Admin Dose Admin Cefepime HCl 1000 mg/Dextrose 111 ml @ 200 mls/hr NOW STAT IV 05/11/17 18:07 05/11/17 18:40 DC 05/11/17 18:47 200 MLS/HR Acetaminophen/ Hydrocodone Bitart (Talala 5/325 Tab) 1 tab NOW STAT PO 05/11/17 18:42 05/11/17 18:43 DC 05/11/17 18:47 1 TAB ED Course 1802: The patient was evaluated in room C6. A complete history and physical exam was performed. 1807: Cefepime HCl 1000mg/Dextrose 111ml @ 200mls/hr IV 1819: Upon reexamination, the patient was stable. I discussed the test results and treatment plan with her. Discussed the patient's case with Dr. Hinson - [facility]. The patient will be evaluated for further management. 1842: Hydrocodone Bitart/Acetaminophen 1 tab PO Medical Decision Prior records/ancillary studies reviewed. Triage Nursing notes reviewed and agree them. The patient's history was concerning for lymphadenopathy. Differential diagnosis: Etiologies such as lymphadenitis, mononucleosis, streptococcal pharyngitis, peritonsillar abscess, viral syndrome, retropharyngeal abscess, tonsillitis, otitis, ludwigs angina, as well as others were entertained. ER treatment provided: IV cefepime Oral Talala 1 Diagnostics interpreted by me: The labs revealed an unremarkable CBC. ESR moderately elevated. Other blood work is pending. Imaging studies: Deferred as the patient just had a CT performed outpatient. Consultation: A [facility] The case was discussed. The patient will be evaluated by the team in the emergency department for further management in the hospital. Medication Reconcilliation Current Medication List: was personally reviewed by me Blood Pressure Screening Patient's blood pressure: Elevated blood pressure Elevated blood pressure will be monitored by the hospitalist. Consults Time Called: 1816 Consulting Physician: Dr. Hinson - [facility] Returned Call: 1818 Discussed the patient's case. The patient will be evaluated for further treatment and disposition. Impression Primary Impression: Lymphadenitis Scribe Attestation The scribe's documentation has been prepared under my direction and personally reviewed by me in its entirety. I confirm that the note above accurately reflects all work, treatment, procedures, and medical decision making performed by me. Departure Information Dispostion Being Evaluated By Hospitalist Referrals Naveen Saunders M.D. (PCP) Patient Instructions My [facility]
[2017-05-11 19:23] LABS: ALBUMIN 3.5 gm/dl (3.4-5.0); ALT/SGPT 29 U/L (12-78); BLOOD UREA NITROGEN 8 mg/dl (7-18); CALCIUM 9.3 mg/dl (8.5-10.1); CARBON DIOXIDE 27 mmol/L (21-32); CREATININE 0.82 mg/dl (0.60-1.20); GLUCOSE 136 mg/dl (70-99); POTASSIUM 4.2 mmol/L (3.5-5.1); SODIUM 136 mmol/L (136-145)
[2017-05-11 19:26] LABS: ALKALINE PHOSPHATASE 103 U/L (45-117); AST/SGOT 20 U/L (15-37); TOTAL PROTEIN 8.1 gm/dl (6.4-8.2)
[2017-05-11 19:28] VITALS: O2SAT 98
[2017-05-11 19:57] VITALS: BP 137/84; PULSE 79; TEMP 36.8; O2SAT 94
[2017-05-11 20:09] VITALS: BP 137/84; PULSE 79; TEMP 36.8; Ht 157.5 cm; Wt 118.7 kg
--- NOTE | 2017-05-11 20:49 | History and Physical ---
History & Physical Date & Time of Service: May 11, 2017 at 20:49 Chief Complaint: Lymphadenitis Primary Care Physician: Naveen Saunders M.D. 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 presented to ER with complain of tender /swollen rt perimandibular gland -which has been ongoing since 03/23/17 Pt noticed painful swelling of rt sided lower jaw on ist week of March , was unable to open mouth due to jaw pain did not had any fever or chills,no sore throat , no nasal congestion pt was seen at [facility] ER on 03/25/17 , CT neck showed -edema of right masseter and buccinator muscle , with infiltration of surrounding fat -on a statistical basis it is secondary to an odontogenic etiology in ER was given IV vanco /Rocephin and Flagyl , discharged with PO Clindamycin had no improvement of rt jaw pain and swelling saw her family physician on 04/05/17 -was prescribed Bactrim referral was made to [facility] at [facility] as per ENT office note on 04/17/2017 Dr Mazariegos -no discrete cervical lymphadenopathy noted,+ tenderness on rt submandibular LN with lymphadenopathy Oral exam showed -no disease process on floor of the mouth , very poor dental hygiene with multiple broken and decayed teeth Chronic rt submandibular lymphadenitis was thought due to infected teeth referral was made to Oral surgery Dr Hendrickson per pt -due to insurance coverage , she saw oral surgery at [facility] -was told her rt jaw lymphadenitis was not caused by dental issue pt continued to have pain and swelling at Rt jaw area , with mild improvement - able to open mouth . no problem in chewing food , no systemic symptoms of fever , chills , sore throat had repeat CT neck and soft tissue at [facility] on 05/07/17 -showing persisted rt submandibular lymphadenopathy today she called her family physician office with complain of worsening of pain and discomfort on rt jaw swelling and pain was prescribed Keflex ( pt did not fill the prescription yet ) as was asked to come to ER for evaluation at ER her vitals were stable , no fever labs shows no leukocytosis, mild elevation of ESR , normal prolactin pt denies of any dysphagia , no swallowing difficulty , no chill or rigor no recent change in appetite, no night sweats , no wt loss pt is a non smoker no hx of chewing tobacco Family History Cancer Diabetes mellitus Heart disease Hypertension Social History Smoking Status: Never Smoker Drug Use: none Marital Status: Occupational Status: unemployed Immunizations History of Influenza Vaccine: Unknown History of Tetanus Vaccine?: Unknown History of Pneumococcal: Unknown History of Hepatitis B Vaccine: Unknown Multi-Drug Resistant Organisms History of MDRO: No Allergies Coded Allergies: Eggs or Egg-derived Products (Verified Allergy, Severe, EDEMA, 05/11/17) PT STATES SHE STILL EATS THEM Vinegar (Verified Allergy, Severe, EDEMA OF FACE, LIPS, TONGUE, 05/11/17) Latex1 -Allergic Contact Dermititis (Verified Allergy, Intermediate, HIVES , 03/25/17) Benzoyl Peroxide (Verified Allergy, Mild, RASH, 03/25/17) BEE STING (Verified Allergy, Unknown, ANAPHYLAXIS, 03/25/17) Penicillins (Verified Allergy, Unknown, 03/25/17) Permethrin (Verified Allergy, Unknown, RASH, 03/25/17) Promethazine (Verified Adverse Reaction, Mild, VOMITING , 03/25/17) Home Medications Scheduled Bupropion HCl (Bupropion HCl Xl), 300 MG PO QAM Cephalexin Monohydrate (Keflex), 500 MG PO TID Clindamycin HCl (Clindamycin HCl), 300 MG PO QID Esomeprazole Magnesium (Esomeprazole Magnesium), 40 MG PO BID Ethinyl Estradiol/Norethindr (Junel 04/04), 1 TAB PO DAILY Fluticasone Prop/Salmeterol (Advair Diskus 500/50 60 Dose), 1 PUFF INH BID Gabapentin (Gabapentin), 800 MG PO TID Lamotrigine (Lamictal), 200 MG PO BID Levothyroxine Sodium (Synthroid), 125 MCG PO DAILY Lurasidone Hcl (Latuda), 120 MG PO QPM Metoprolol Succinate (Toprol Xl), 200 MG PO DAILY Mirtazapine (Remeron), 15 MG PO HS Montelukast Sod (Montelukast Sodium), 10 MG PO HS Solifenacin (Vesicare), 10 MG PO DAILY Scheduled PRN Albuterol Sulf (Proventil 0.083% 2.5MG/3ML), 2.5 MG INH Q4 PRN for SOB/Wheezing Epinephrine (Epinephrine), 0.3 MG IM UD PRN for ALLERGIC REACTION Sumatriptan Succinate (Imitrex), 100 MG PO UD PRN for Migraine Tramadol HCl (Tramadol HCl), 50 MG PO Q6 PRN for Pain Review of Systems Constitutional: No fever, No chills, No sweats, No weight loss, No weakness, No fatigue, No problem reported Eyes: No worsening of vision, No eye pain, No redness, No discharge, No diplopia, No problem reported ENT: + dental problems (multiple decayed , brocken teeth ), + problem reported (persisted rt jaw lymphnode enlargement for past 6-8 weeks with pain ) Cardiovascular: No chest pain, No orthopnea, No PND, No edema, No claudication , No palpitations, No problem reported Abdomen: No pain, No nausea, No vomiting, No diarrhea, No constipation, No GI bleeding, No problem reported Musculoskeletal: No joint pain, No muscle pain, No swelling, No calf pain, No problem reported Genitourinary - Female: No dysuria, No urinary frequency, No urinary urgency, No urinary incontinence, No urinary retention, No hematuria, No dysmenorrhea, No menorrhagia, No metrorrhagia, No rash, No vaginal bleeding, No vaginal discharge, No vaginal itching, No vulvodynia, No , No problem reported Neurologic: No memory loss, No paralysis, No weakness, No numbness/tingling, No vertigo, No balance problems, No problem reported Psychiatric: No depression symptoms, No anhedonism, No anxiety, No insomnia, No substance abuse, No problem reported Endocrine: No fatigue, No excessive thirst, No excessive urination, No problem reported Physical Exam Vital Signs Date Time Temp Pulse Resp B/P (MAP) Pulse Ox O2 Delivery O2 Flow Rate FiO2 05/11/17 20:09 36.8 79 19 137/84 Room Air 05/11/17 19:57 36.8 79 19 137/84 (101) 94 Room Air 05/11/17 19:28 37.1 84 17 149/93 98 05/11/17 18:42 98 05/11/17 18:40 84 17 149/93 98 Room Air 05/11/17 16:57 100 Room Air 05/11/17 16:55 37.1 83 20 150/100 99 Room Air General Appearance: no apparent distress Head: normocephalic, atraumatic Eyes: normal inspection, sclerae normal ENT: pharynx normal, + pertinent finding (enlarged and tender rt submandibular lymphnode , no overlying skin erythema , no open wound or dainage , /poor dention with decayed and brocken teeth ) Neck: thyroid normal, no JVD, no carotid bruits, trachea midline Respiratory/Chest: lungs clear, normal breath sounds, no respiratory distress Cardiovascular: regular rate, rhythm, no edema, normal peripheral pulses Abdomen/GI: normal bowel sounds, non tender, soft Extremities/Musculoskelatal: no calf tenderness, normal capillary refill, no pedal edema Neurologic/Psych: no motor/sensory deficits, alert, normal mood/affect, normal reflexes, oriented x 3 Skin: normal color, warm/dry, no rash Diagnostics Laboratory Results Results Past 24 Hours Test 05/11/17 18:20 Range/Units White Blood Count 7.34 4.8-10.8 K/uL Red Blood Count 4.59 4.2-5.4 M/uL Hemoglobin 13.9 12.0-16.0 g/dL Hematocrit 41.1 37-47 % Mean Corpuscular Volume 89.5 80-100 fL Mean Corpuscular Hemoglobin 30.3 25-34 pg Mean Corpuscular Hemoglobin Concent 33.8 32-36 g/dl Platelet Count 242 130-400 K/uL Mean Platelet Volume 9.3 7.4-10.4 fL Neutrophils (%) (Auto) 67.2 % Lymphocytes (%) (Auto) 24.9 % Monocytes (%) (Auto) 6.0 % Eosinophils (%) (Auto) 1.1 % Basophils (%) (Auto) 0.3 % Neutrophils # (Auto) 4.93 1.4-6.5 K/uL Lymphocytes # (Auto) 1.83 1.2-3.4 K/uL Monocytes # (Auto) 0.44 0.11-0.59 K/uL Eosinophils # (Auto) 0.08 0-0.5 K/uL Basophils # (Auto) 0.02 0-0.2 K/uL RDW Standard Deviation 41.5 36.4-46.3 fL RDW Coefficient of Variation 12.8 11.5-14.5 % Immature Granulocyte % (Auto) 0.5 % Immature Granulocyte # (Auto) 0.04 0.00-0.02 K/uL Erythrocyte Sedimentation Rate 41 0-21 mm/hr Sodium Level 136 136-145 mmol/L Potassium Level 4.2 3.5-5.1 mmol/L Chloride Level 102 98-107 mmol/L Carbon Dioxide Level 27 21-32 mmol/L Anion Gap 7.0 3-11 mmol/L Blood Urea Nitrogen 8 7-18 mg/dl Creatinine 0.82 0.60-1.20 mg/dl Est Creatinine Clear Calc Drug Dose 119.5 ml/min Estimated GFR () 109.0 Estimated GFR (Non- 94.0 BUN/Creatinine Ratio 9.7 10-20 Random Glucose 136 70-99 mg/dl Calcium Level 9.3 8.5-10.1 mg/dl Total Bilirubin 0.2 0.2-1 mg/dl Direct Bilirubin < 0.1 0-0.2 mg/dl Aspartate Amino Transf (AST/SGOT) 20 15-37 U/L Alanine Aminotransferase (ALT/SGPT) 29 12-78 U/L Alkaline Phosphatase 103 45-117 U/L C-Reactive Protein 3.50 0-0.29 mg/dl Total Protein 8.1 6.4-8.2 gm/dl Albumin 3.5 3.4-5.0 gm/dl Procalcitonin < 0.05 0-0.5 ng/ml Lyme Disease IgG Antibody NEG NEG Lyme Disease IgM Antibody NEG NEG Diagnostic Radiology CT SOFT TISSUE NECK WITH CONTRAST 03/25/17 CLINICAL HISTORY: Severe sore throat. Possible peritonsillar abscess. FINDINGS: The visualized portions of the lung apices are unremarkable. No thyroid masses are visualized. No salivary gland masses are visualized. Mildly prominent right submandibular lymph nodes are likely reactive There are no fluid collections suspicious for abscess. There is no evidence of airway compromise. No mucosal space masses are visualized. There is edema of the right masseter and buccinator muscle. There is subtle infiltration of the surrounding fat.] On a statistical basis this is secondary to an odontogenic etiology. There is minimal secondary mass effect/edema on the right peritonsillar region. This is likely secondary phenomenon. There is no evidence of abscess. IMPRESSION: 1. Edema of the right masseter and buccinator muscle . There is infiltration of the surrounding fat. On a statistical basis this is secondary to an odontogenic etiology. 2. Minimal secondary mass effect/edema on the right peritonsillar region. This is likely secondary. There is no evidence of abscess. Impression Assessment and Plan PERSISTED RT SUBMANDIBULAR LYMPHADENITIS : has been ongoing since 03/23/17 completed multiple Abx course -including Clindamycin . Bactrim -with no improvement of symptom localized Lymphadenitis with + tenderness and swelling no other systemic symptoms of fever .chill , swallowing difficulty had ENT eval as out pt -recommend Oral /maxillofacial surgery -for management of infected teeth -possible causing persisted rt submandibular lymphadenitis empiric Abx with IV Cefepime Oral Maxillofacial surgery consulted -case D/w Dr Hartman recommends to continue current Abx pt will be seen by Dr Sy today HX OF DEPRESSION /ANXIETY DISORDER : cont out pt meds of Remeron , Wellbutrin HYPOTHYROIDISM : cont Levothyroxine GERD : on PPI HX OF ALLERGIC RHINITIS /ASTHMA : no acute symptom on Singulair PRN Albuterol , Advair INH BID HX OF LUMBER SPINAL STENOSIS /BACK PAIN WITH RADICULOPATHY Cont out pt pain meds on Gabapentin FULL CODE DVT PROPHYLAXIS : low risk SCD and TEDS ambulate DISPOSITION : expected to be discharged home when medically stable Medicine follow up with Dr Saunders at [facility] Level of Care Med/Surg Advanced Directives Existing Living Will: No Existing Power of Drapery Hemmer Automatic: No Resuscitation Status FULL RESUSCITATION VTE Prophylaxis VTE Risk Assessment Done? Y/N: Yes Risk Level: Low Given or contraindicated: Lakeshia Stockings, SCD's Additional Copies To Naveen Saunders M.D.
[2017-05-11] MEDS ORDERED: ACETAMINOPHEN 325 MG TAB PO PRN (21:15)
[2017-05-11] MEDS ORDERED: ALUMINUM/MAGNESIUM/SIMETH (MAALOX MAX) 30 ML UDC PO PRN (21:15)
[2017-05-11] MEDS ORDERED: ONDANSETRON INJ 2 MG/ML 2 ML VIAL IV PRN (21:15)
[2017-05-11] MEDS ORDERED: POLYETHYLENE (MIRALAX) 17 GM PACK PO PRN (21:15)
[2017-05-11] MEDS ORDERED: MAGNESIUM HYDROXIDE SUSP 30 ML UDC PO PRN (21:15)
[2017-05-11] MEDS ORDERED: ALBUTEROL 0.083% NEBU SOLN 3 ML VIAL INH PRN (22:00)
[2017-05-11] MEDS ORDERED: EPINEPHRINE ADULT AUTO-INJECT 0.3 MG SYR IM PRN (22:00)
[2017-05-11] MEDS ORDERED: SUMATRIPTAN SUCC TAB 100 MG TAB PO PRN (22:00)
[2017-05-11 22:05] LABS: INR 0.9 (0.9-1.1)
[2017-05-11] MEDS: KETOROLAC TROMETHAMINE 15 MG/ML VIAL IV PRN (22:51)
[2017-05-11] MEDS: MIRTAZAPINE TAB 15 MG TAB PO SCH (23:31)
[2017-05-11] MEDS: MONTELUKAST SOD 10 MG TAB PO SCH (23:31)
[2017-05-11] MEDS: GABAPENTIN 800 MG TAB PO SCH (23:32)
[2017-05-11] MEDS: HYDROmorphone INJ 0.5 MG/0.5 ML SYR IV PRN (23:37)
[2017-05-12 00:56] VITALS: BP 174/85; PULSE 76; TEMP 36.7; O2SAT 91
[2017-05-12] MEDS: CEFEPIME IV 1,000 MG in SYRINGE 0 ML IV SCH ×2 (05:33→18:08)
[2017-05-12] MEDS: LEVOTHYROXINE 125 MCG TAB PO SCH (05:33)
[2017-05-12 05:36] VITALS: BP 131/90; PULSE 108
[2017-05-12] MEDS: HYDROmorphone INJ 0.5 MG/0.5 ML SYR IV PRN ×3 (05:55→18:55)
[2017-05-12 06:54] LABS: HEMATOCRIT 36.7 % (37-47); HEMOGLOBIN 12.2 g/dL (12.0-16.0); MEAN CELL VOLUME 90.4 fL (80-100); MEAN CORPUSCULAR HGB CONC 33.2 g/dl (32-36); PLATELET COUNT 211 K/uL (130-400); RED CELL DISTRIBUTION WIDTH CV 12.9 % (11.5-14.5); RED CELL DISTRIBUTION WIDTH SD 42.6 fL (36.4-46.3); WHITE BLOOD COUNT 6.89 K/uL (4.8-10.8)
[2017-05-12] MEDS: GABAPENTIN 800 MG TAB PO SCH ×3 (08:09→20:08)
[2017-05-12] MEDS: BuPROPion XL 300 MG TABCR PO SCH (08:09)
[2017-05-12] MEDS: PANTOprazole SOD 40 MG TAB PO SCH ×2 (08:09→20:08)
[2017-05-12] MEDS: METOPROLOL SUCC 50MG EXT REL TAB PO SCH (08:09)
[2017-05-12] MEDS: FLUTICASONE/SALMETEROL (ADVAIR) 500/50 INH 14 PUFF INH SCH ×2 (08:10→20:07)
[2017-05-12 08:22] VITALS: BP 168/102; PULSE 77; TEMP 36.5; O2SAT 99
[2017-05-12] MEDS: KETOROLAC TROMETHAMINE 15 MG/ML VIAL IV PRN (10:34)
[2017-05-12 14:05] VITALS: BP 134/87; PULSE 81
[2017-05-12 15:33] VITALS: BP 136/83; PULSE 79; TEMP 36.7; O2SAT 95
--- NOTE | 2017-05-12 16:09 | Progress Note ---
Progress Note Date of Service May 12, 2017. Progress Note Pt was scheduled for extractions today by Dr. Hendrickson in our [place] office. Pt states that she was unaware of this appointment. She does state that she has an appointment on May [address] Richmond (oral surgeon) in [place]. I advised her to call him to let him know about her admission because he may want to do her surgery sooner. Pt agreed to this. She is no longer requiring our services, but she knows that she can call us in the future if she needs anything. From an oral surgery standpoint the pt is okay for discharge with follow up from the oral surgeon doing her surgery on May 21. Call [facility] at [phone] with any questions. MADAN Casas
--- NOTE | 2017-05-12 17:21 | Progress Note ---
Subjective Date of Service: May 12, 2017. Subjective Pt evaluation today including: conversation w/ patient, physical exam, lab review, review of studies, review of inpatient medication list Saw/examined the patient in room 450 Denies fevers/chills Denies tooth pain, no trouble swallowing R submandibular lymph node tenderness Problem List Medical Problems: (1) Asthma Status: Chronic (2) Bipolar Disorder, Unspecified Status: Chronic (3) GERD (gastroesophageal reflux disease) Status: Chronic (4) Hypokalemia Status: Acute (5) Hypothyroidism Status: Chronic (6) Insulin resistance Status: Chronic (7) Lumbar Disc Displacement Status: Chronic (8) Lumbosacral Neuritis Nos Status: Chronic (9) Lymphadenitis Status: Acute (10) Pleuritic chest pain Status: Acute (11) Right flank pain Status: Acute (12) UTI (urinary tract infection) Status: Acute Review of Systems Constitutional: No fever, No chills ENT: + problem reported (tenderness to the R jaw line), No hearing loss, No unusual epistaxis, No nasal symptoms, No sore throat, No tinnitus, No dental problems, No trouble swallowing Respiratory: No shortness of breath Cardiac: No chest pain Medications Current Inpatient Medications Medications (Trade) Dose Ordered Sig/Jenniffer Route Start Time Stop Time Status Last Admin Dose Admin Acetaminophen (Tylenol Tab) 650 mg Q4H PRN PO 05/11/17 21:15 06/10/17 21:14 Al Hydrox/Mg Hydrox/Simethicone (Maalox Max Susp) 15 ml Q4H PRN PO 05/11/17 21:15 06/10/17 21:14 Magnesium Hydroxide (Milk Of Magnesia Susp) 30 ml Q6H PRN PO 05/11/17 21:15 06/10/17 21:14 Polyethylene (Miralax Powder Packet) 17 gm DAILY PRN PO 05/11/17 21:15 06/10/17 21:14 Ondansetron HCl (Zofran Inj) 4 mg Q6H PRN IV 05/11/17 21:15 06/10/17 21:14 Cefepime HCl 1000 mg/Syringe 11 ml @ 5.5 mls/min Q12H IV 05/12/17 06:00 05/22/17 05:59 05/12/17 05:33 5.5 MLS/MIN Albuterol Sulfate (Ventolin 0.083% 2.5MG/3ML Neb) 2.5 mg Q4 PRN INH 05/11/17 22:00 06/10/17 21:59 Bupropion HCl (Wellbutrin-Xl Tab) 300 mg QAM PO 05/12/17 08:00 06/11/17 07:59 05/12/17 08:09 300 MG Epinephrine (Epipen) 0.3 mg UD PRN IM 05/11/17 22:00 06/10/17 21:59 Salmeterol Xinafoate/ Fluticasone (Advair Diskus 500/50 Inh) 1 puff BID INH 05/12/17 08:00 06/11/17 07:59 05/12/17 08:10 1 PUFF Gabapentin (Neurontin Tab) 800 mg TID PO 05/12/17 08:00 06/11/17 07:59 05/12/17 13:28 800 MG Lamotrigine (Lamictal Tab) 200 mg BID PO 05/12/17 08:00 06/11/17 07:59 05/12/17 08:09 200 MG Levothyroxine Sodium (Synthroid Tab) 125 mcg DAILYBB PO 05/12/17 06:30 06/11/17 06:29 05/12/17 05:33 125 MCG Metoprolol Succinate (Toprol Xl Tab) 200 mg DAILY PO 05/12/17 08:00 06/11/17 07:59 05/12/17 08:09 200 MG Mirtazapine (Remeron Tab) 15 mg HS PO 05/11/17 22:00 06/10/17 21:59 05/11/17 23:31 15 MG Montelukast Sodium (Singulair Tab) 10 mg HS PO 05/11/17 22:00 06/10/17 21:59 05/11/17 23:31 10 MG Sumatriptan Succinate (Imitrex Tab) 100 mg UD PRN PO 05/11/17 22:00 06/10/17 21:59 Pantoprazole Sodium (Protonix Tab) 40 mg BID PO 05/12/17 08:00 06/11/17 07:59 05/12/17 08:09 40 MG Miscellaneous Information (Order Awaiting Action) 1 ea QS PO 05/12/17 08:00 06/11/17 07:59 Miscellaneous Information (Order Awaiting Action) 1 ea QS N/A 05/12/17 08:00 06/11/17 07:59 Hydromorphone HCl (Dilaudid Inj) 0.5 mg Q6 PRN IV 05/11/17 22:00 05/25/17 21:59 05/12/17 12:57 0.5 MG Ketorolac Tromethamine (Toradol Inj) 15 mg Q6H PRN IV 05/11/17 22:00 05/16/17 21:59 05/12/17 10:34 15 MG Objective Vital Signs Date Time Temp Pulse Resp B/P (MAP) Pulse Ox O2 Delivery O2 Flow Rate FiO2 05/12/17 15:33 36.7 79 20 136/83 (100) 95 Room Air 05/12/17 15:00 Room Air 05/12/17 14:05 81 134/87 (103) 05/12/17 08:22 36.5 77 18 168/102 (124) 99 Room Air 05/12/17 07:37 Room Air 05/12/17 05:36 108 131/90 (104) 05/12/17 00:56 36.7 76 20 174/85 (114) 91 Room Air 05/11/17 23:29 Room Air 05/11/17 20:09 36.8 79 19 137/84 Room Air 05/11/17 19:57 36.8 79 19 137/84 (101) 94 Room Air 05/11/17 19:28 37.1 84 17 149/93 98 05/11/17 18:42 98 05/11/17 18:40 84 17 149/93 98 Room Air Physical Exam General Appearance: no apparent distress ENT: hearing grossly normal, TMs normal, pharynx normal, + pertinent finding ( submandibular lymph node tenderness, mildly swollen) Respiratory/Chest: no respiratory distress, no accessory muscle use Laboratory Results Last 24 Hours Test 05/11/17 18:20 05/12/17 06:28 White Blood Count 7.34 K/uL 6.89 K/uL Red Blood Count 4.59 M/uL 4.06 M/uL Hemoglobin 13.9 g/dL 12.2 g/dL Hematocrit 41.1 % 36.7 % Mean Corpuscular Volume 89.5 fL 90.4 fL Mean Corpuscular Hemoglobin 30.3 pg 30.0 pg Mean Corpuscular Hemoglobin Concent 33.8 g/dl 33.2 g/dl Platelet Count 242 K/uL 211 K/uL Mean Platelet Volume 9.3 fL 9.0 fL Neutrophils (%) (Auto) 67.2 % Lymphocytes (%) (Auto) 24.9 % Monocytes (%) (Auto) 6.0 % Eosinophils (%) (Auto) 1.1 % Basophils (%) (Auto) 0.3 % Neutrophils # (Auto) 4.93 K/uL Lymphocytes # (Auto) 1.83 K/uL Monocytes # (Auto) 0.44 K/uL Eosinophils # (Auto) 0.08 K/uL Basophils # (Auto) 0.02 K/uL RDW Standard Deviation 41.5 fL 42.6 fL RDW Coefficient of Variation 12.8 % 12.9 % Immature Granulocyte % (Auto) 0.5 % Immature Granulocyte # (Auto) 0.04 K/uL Erythrocyte Sedimentation Rate 41 mm/hr Prothrombin Time 9.9 SECONDS Prothromb Time International Ratio 0.9 Sodium Level 136 mmol/L Potassium Level 4.2 mmol/L Chloride Level 102 mmol/L Carbon Dioxide Level 27 mmol/L Anion Gap 7.0 mmol/L Blood Urea Nitrogen 8 mg/dl Creatinine 0.82 mg/dl Est Creatinine Clear Calc Drug Dose 119.5 ml/min Estimated GFR () 109.0 Estimated GFR (Non- 94.0 BUN/Creatinine Ratio 9.7 Random Glucose 136 mg/dl Calcium Level 9.3 mg/dl Total Bilirubin 0.2 mg/dl Direct Bilirubin < 0.1 mg/dl Aspartate Amino Transf (AST/SGOT) 20 U/L Alanine Aminotransferase (ALT/SGPT) 29 U/L Alkaline Phosphatase 103 U/L C-Reactive Protein 3.50 mg/dl Total Protein 8.1 gm/dl Albumin 3.5 gm/dl Procalcitonin < 0.05 ng/ml Thyroid Stimulating Hormone (TSH) 3.700 uIu/ml Lyme Disease IgG Antibody NEG Lyme Disease IgM Antibody NEG Assessment and Plan This is a 31 year old female with a PMH of depression/anxiety, asthma - presents with possible odontogenic infection and submandibular lymph node tenderness on the R Persistent R sided Submandibular Lymphadenitis severe R sided tenderness to the R submandibular lymph node multiple antibiotics - was on clindamycin x2 courses, Bactrim, etc. appreciate oromaxillary facial surgery input was to be seen by surgeon as outpatient for tooth extraction to see facial surgeon in 2 weeks plan is to d/c home in 1-2 days on oral antibiotics outpatient maxillofacial/oral surgery follow-up Hx. of Depression/Anxiety continue home medications Hypothyroidism continue Synthroid GERD on PPI Asthma continue Singulair continue Advair Hx. of Lumbar Spine Stenosis continue Gabapentin DVT ppx SCDs FULL CODE
[2017-05-12] MEDS: MONTELUKAST SOD 10 MG TAB PO SCH (20:08)
[2017-05-12] MEDS: MIRTAZAPINE TAB 15 MG TAB PO SCH (20:08)
[2017-05-13] VITALS: BP 123/78; PULSE 78; TEMP 36.6; O2SAT 96
[2017-05-13] MEDS: HYDROmorphone INJ 0.5 MG/0.5 ML SYR IV PRN ×2 (03:45→09:32)
[2017-05-13] MEDS: LEVOTHYROXINE 125 MCG TAB PO SCH (06:14)
[2017-05-13] MEDS: CEFEPIME IV 1,000 MG in SYRINGE 0 ML IV SCH (06:14)
[2017-05-13 07:43] VITALS: BP 124/83; PULSE 84; TEMP 36.6; O2SAT 95
[2017-05-13] MEDS: FLUTICASONE/SALMETEROL (ADVAIR) 500/50 INH 14 PUFF INH SCH (07:58)
[2017-05-13] MEDS: METOPROLOL SUCC 50MG EXT REL TAB PO SCH (07:58)
[2017-05-13] MEDS: BuPROPion XL 300 MG TABCR PO SCH (07:58)
[2017-05-13] MEDS: PANTOprazole SOD 40 MG TAB PO SCH (07:58)
[2017-05-13] MEDS: GABAPENTIN 800 MG TAB PO SCH (07:59)
[2017-05-13 08:45] LABS: HEMATOCRIT 36.9 % (37-47); HEMOGLOBIN 12.6 g/dL (12.0-16.0); MEAN CELL VOLUME 89.8 fL (80-100); MEAN CORPUSCULAR HEMOGLOBIN 30.7 pg (25-34); MEAN CORPUSCULAR HGB CONC 34.1 g/dl (32-36); MEAN PLATELET VOLUME 9.1 fL (7.4-10.4); PLATELET COUNT 225 K/uL (130-400); RED CELL DISTRIBUTION WIDTH CV 13.1 % (11.5-14.5)
[2017-05-13 09:10] LABS: CALCIUM 9.3 mg/dl (8.5-10.1); CREATININE 0.81 mg/dl (0.60-1.20); POTASSIUM 4.2 mmol/L (3.5-5.1)
--- NOTE | 2017-05-13 10:56 | Progress Note ---
Subjective Date of Service: May 13, 2017. Subjective Pt evaluation today including: conversation w/ patient, physical exam, lab review, review of studies, review of inpatient medication list Saw/examined the patient in room 450 She's doing well today pain is still present, swelling has improved Problem List Medical Problems: (1) Asthma Status: Chronic (2) Bipolar Disorder, Unspecified Status: Chronic (3) GERD (gastroesophageal reflux disease) Status: Chronic (4) Hypokalemia Status: Acute (5) Hypothyroidism Status: Chronic (6) Insulin resistance Status: Chronic (7) Lumbar Disc Displacement Status: Chronic (8) Lumbosacral Neuritis Nos Status: Chronic (9) Lymphadenitis Status: Acute (10) Pleuritic chest pain Status: Acute (11) Right flank pain Status: Acute (12) UTI (urinary tract infection) Status: Acute Review of Systems ENT: + dental problems, No hearing loss, No unusual epistaxis, No nasal symptoms, No sore throat, No tinnitus, No trouble swallowing Medications Current Inpatient Medications Medications (Trade) Dose Ordered Sig/Jenniffer Route Start Time Stop Time Status Last Admin Dose Admin Acetaminophen (Tylenol Tab) 650 mg Q4H PRN PO 05/11/17 21:15 06/10/17 21:14 Al Hydrox/Mg Hydrox/Simethicone (Maalox Max Susp) 15 ml Q4H PRN PO 05/11/17 21:15 06/10/17 21:14 Magnesium Hydroxide (Milk Of Magnesia Susp) 30 ml Q6H PRN PO 05/11/17 21:15 06/10/17 21:14 Polyethylene (Miralax Powder Packet) 17 gm DAILY PRN PO 05/11/17 21:15 06/10/17 21:14 Ondansetron HCl (Zofran Inj) 4 mg Q6H PRN IV 05/11/17 21:15 06/10/17 21:14 Cefepime HCl 1000 mg/Syringe 11 ml @ 5.5 mls/min Q12H IV 05/12/17 06:00 05/22/17 05:59 05/13/17 06:14 5.5 MLS/MIN Albuterol Sulfate (Ventolin 0.083% 2.5MG/3ML Neb) 2.5 mg Q4 PRN INH 05/11/17 22:00 06/10/17 21:59 Bupropion HCl (Wellbutrin-Xl Tab) 300 mg QAM PO 05/12/17 08:00 06/11/17 07:59 05/13/17 07:58 300 MG Epinephrine (Epipen) 0.3 mg UD PRN IM 05/11/17 22:00 06/10/17 21:59 Salmeterol Xinafoate/ Fluticasone (Advair Diskus 500/50 Inh) 1 puff BID INH 05/12/17 08:00 06/11/17 07:59 05/13/17 07:58 1 PUFF Gabapentin (Neurontin Tab) 800 mg TID PO 05/12/17 08:00 06/11/17 07:59 05/13/17 07:59 800 MG Lamotrigine (Lamictal Tab) 200 mg BID PO 05/12/17 08:00 06/11/17 07:59 05/13/17 07:59 200 MG Levothyroxine Sodium (Synthroid Tab) 125 mcg DAILYBB PO 05/12/17 06:30 06/11/17 06:29 05/13/17 06:14 125 MCG Metoprolol Succinate (Toprol Xl Tab) 200 mg DAILY PO 05/12/17 08:00 06/11/17 07:59 05/13/17 07:58 200 MG Mirtazapine (Remeron Tab) 15 mg HS PO 05/11/17 22:00 06/10/17 21:59 05/12/17 20:08 15 MG Montelukast Sodium (Singulair Tab) 10 mg HS PO 05/11/17 22:00 06/10/17 21:59 05/12/17 20:08 10 MG Sumatriptan Succinate (Imitrex Tab) 100 mg UD PRN PO 05/11/17 22:00 06/10/17 21:59 Pantoprazole Sodium (Protonix Tab) 40 mg BID PO 05/12/17 08:00 06/11/17 07:59 05/13/17 07:58 40 MG Miscellaneous Information (Order Awaiting Action) 1 ea QS PO 05/12/17 08:00 06/11/17 07:59 Miscellaneous Information (Order Awaiting Action) 1 ea QS N/A 05/12/17 08:00 06/11/17 07:59 Hydromorphone HCl (Dilaudid Inj) 0.5 mg Q6 PRN IV 05/11/17 22:00 05/25/17 21:59 05/13/17 09:32 0.5 MG Ketorolac Tromethamine (Toradol Inj) 15 mg Q6H PRN IV 05/11/17 22:00 05/16/17 21:59 05/12/17 10:34 15 MG Objective Vital Signs Date Time Temp Pulse Resp B/P (MAP) Pulse Ox O2 Delivery O2 Flow Rate FiO2 05/13/17 08:00 Room Air 05/13/17 07:43 36.6 84 16 124/83 (97) 95 05/13/17 00:00 36.6 78 20 123/78 (93) 96 Room Air 05/12/17 23:15 Room Air 05/12/17 15:33 36.7 79 20 136/83 (100) 95 Room Air 05/12/17 15:00 Room Air 05/12/17 14:05 81 134/87 (103) Physical Exam General Appearance: no apparent distress ENT: + pertinent finding (mild swelling of R submandibular lymph node) Laboratory Results Last 24 Hours Test 05/13/17 08:21 White Blood Count 7.50 K/uL Red Blood Count 4.11 M/uL Hemoglobin 12.6 g/dL Hematocrit 36.9 % Mean Corpuscular Volume 89.8 fL Mean Corpuscular Hemoglobin 30.7 pg Mean Corpuscular Hemoglobin Concent 34.1 g/dl RDW Standard Deviation 43.0 fL RDW Coefficient of Variation 13.1 % Platelet Count 225 K/uL Mean Platelet Volume 9.1 fL Sodium Level 137 mmol/L Potassium Level 4.2 mmol/L Chloride Level 102 mmol/L Carbon Dioxide Level 28 mmol/L Anion Gap 7.0 mmol/L Blood Urea Nitrogen 10 mg/dl Creatinine 0.81 mg/dl Est Creatinine Clear Calc Drug Dose 120.9 ml/min Estimated GFR () 110.6 Estimated GFR (Non- 95.4 BUN/Creatinine Ratio 12.7 Random Glucose 100 mg/dl Calcium Level 9.3 mg/dl Assessment and Plan This is a 31 year old female with a PMH of depression/anxiety, asthma - presents with possible odontogenic infection and submandibular lymph node tenderness on the R Persistent R sided Submandibular Lymphadenitis 05/13 plan is to d/c home today has an outpatient oral surgery appointment on 05/21 PCP follow-up will d/c with Bactrim and Hurt PRN for pain 05/12 severe R sided tenderness to the R submandibular lymph node multiple antibiotics - was on clindamycin x2 courses, Bactrim, etc. appreciate oromaxillary facial surgery input was to be seen by surgeon as outpatient for tooth extraction to see facial surgeon in 2 weeks plan is to d/c home in 1-2 days on oral antibiotics outpatient maxillofacial/oral surgery follow-up Hx. of Depression/Anxiety continue home medications Hypothyroidism continue Synthroid GERD on PPI Asthma continue Singulair continue Advair Hx. of Lumbar Spine Stenosis continue Gabapentin DVT ppx SCDs FULL CODE
[2017-05-13] MEDS ORDERED: SULF800T23 PO (11:02)
[2017-05-13] MEDS ORDERED: HYDR-5688 PO (11:02)
--- NOTE | 2017-05-13 11:08 | Discharge Instructions ---
Discharge Instructions Date of Service May 13, 2017. Admission Reason for Admission: Lymphadenitis Discharge Discharge Diagnosis / Problem: Lymph node swelling, dental infection Discharge Goals Goal(s): Decrease discomfort, Improve function, Diagnostic testing, Therapeutic intervention Activity Recommendations Activity Limitations: per Instructions/Follow-up section . Instructions / Follow-Up Instructions / Follow-Up Please follow up with Dr. Alcazar (covering for Dr. Saunders) on May 15 at 10:45AM * You will be prescribed Bactrim (antibiotic) - use this twice daily * Please follow-up with the oral surgeon on May 21 for the tooth extraction/ dental infection * You will be prescribed Witt for the pain - please only use this as needed and use Aleve/Ibuprofen in between - do not drive while taking this medications * stop taking your Tramadol Current Hospital Diet Patient's current hospital diet: Regular Diet Discharge Diet Recommended Diet: Regular Diet Pending Studies Studies pending at discharge: no Medical Emergencies . Who to Call and When: Medical Emergencies: If at any time you feel your situation is an emergency, please call 911 immediately. . Non-Emergent Contact Non-Emergency issues call your: Primary Care Provider, Specialist . . "Provider Documentation" section prepared by Earl Montoya. . [place] Drug Monitoring Program Search Results: patient reviewed within database, no issues identified, see additional documentation Drug Monitoring Findings: Has been prescribed Tramadol recently; states it does not work. Will give a short course of Witt
--- NOTE | 2017-05-13 11:10 | Discharge Summary ---
Discharge Summary Date of Service May 13, 2017. Discharge Summary Admission Date: May 11, 2017 at 18:38 Discharge Date: May 13, 2017 Discharge Disposition: Home Principal Diagnosis: Odontogenic Infection Submandibular Lymphadenitis Medication Reconciliation New Medications: Hydrocodone/Acetaminophen 5MG/325MG (Vina 5MG/325MG) Tab 1 TABLET PO Q6 PRN for Pain for 3 Days, #12 TAB Sulfa/Trimethoprim (Bactrim Ds 800MG/160MG) Tab 1 TAB PO BID for 8 Days, #16 TAB Continued Medications: Albuterol Sulf (Proventil 0.083% 2.5MG/3ML) 2.5 Mg/3 Ml Nebu 2.5 MG INH Q4 PRN for SOB/Wheezing, EA Bupropion HCl (Bupropion HCl Xl) 300 Mg Tabcr 300 MG PO QAM Epinephrine (Epinephrine) 0.3 Mg/0.3 Ml Inj 0.3 MG IM UD PRN for ALLERGIC REACTION NEEDED FOR SEVERE REACTION, INJECT IN OUTER THIGH FOLLOWING INSTRUCTIONS ON PACKAGE, THEN GO TO EMERGENCY ROOM Esomeprazole Magnesium (Esomeprazole Magnesium) 40 Mg Cap 40 MG PO BID TAKE THIS MEDICATION TWICE DAILY ONE HOUR BEFORE EATING Ethinyl Estradiol/Norethindr (Junel 04/04) 1 Ea Tab 1 TAB PO DAILY, TAB Fluticasone Prop/Salmeterol (Advair Diskus 500/50 60 Dose) 1 Ea Aerp 1 PUFF INH BID Gabapentin (Gabapentin) 800 Mg Tab 800 MG PO TID Lamotrigine (Lamictal) 200 Mg Tab 200 MG PO BID Levothyroxine Sodium (Synthroid) 125 Mcg Tab 125 MCG PO DAILY Lurasidone Hcl (Latuda) 120 Mg Tab 120 MG PO QPM TAKE THIS MEDICATION WITH EVENING MEAL Metoprolol Succinate (Toprol Xl) 200 Mg Tab 200 MG PO DAILY Mirtazapine (Remeron) 15 Mg Tab 15 MG PO HS Montelukast Sod (Montelukast Sodium) 10 Mg Tab 10 MG PO HS Solifenacin (Vesicare) 10 Mg Tab 10 MG PO DAILY Sumatriptan Succinate (Imitrex) 100 Mg Tab 100 MG PO UD PRN for Migraine TAKE ONE TABLET AT ONSET OF MIGRAINE, MAY REPEAT AFTER 2 HOURS IF NO RELIEF. TAKE NO MORE THAN 2 TABLETS DAILY. Discontinued Medications: Cephalexin Monohydrate (Keflex) 500 Mg Cap 500 MG PO TID for 10 Days, #30 CAP END ON 05/21/2017 Clindamycin HCl (Clindamycin HCl) 300 Mg Cap 300 MG PO QID Tramadol HCl (Tramadol HCl) 50 Mg Tab 50 MG PO Q6 PRN for Pain Admission Information HPI (per Admitting provider): this is a 31 yo F with hx of depression , generalized anxiety disorder, PTSD , Hypothyroidism , GERD , chronic back pain due to lumber disc herniation presented to ER with complain of tender /swollen rt perimandibular gland -which has been ongoing since 03/23/17 Pt noticed painful swelling of rt sided lower jaw on ist week of March , was unable to open mouth due to jaw pain did not had any fever or chills,no sore throat , no nasal congestion pt was seen at [facility] ER on 03/25/17 , CT neck showed -edema of right masseter and buccinator muscle , with infiltration of surrounding fat -on a statistical basis it is secondary to an odontogenic etiology in ER was given IV vanco /Rocephin and Flagyl , discharged with PO Clindamycin had no improvement of rt jaw pain and swelling saw her family physician on 04/05/17 -was prescribed Bactrim referral was made to [facility] at [facility] as per ENT office note on 04/17/2017 Dr Mazariegos -no discrete cervical lymphadenopathy noted,+ tenderness on rt submandibular LN with lymphadenopathy Oral exam showed -no disease process on floor of the mouth , very poor dental hygiene with multiple broken and decayed teeth Chronic rt submandibular lymphadenitis was thought due to infected teeth referral was made to Oral surgery Dr Hendrickson per pt -due to insurance coverage , she saw oral surgery at [facility] -was told her rt jaw lymphadenitis was not caused by dental issue pt continued to have pain and swelling at Rt jaw area , with mild improvement - able to open mouth . no problem in chewing food , no systemic symptoms of fever , chills , sore throat had repeat CT neck and soft [facility] at [facility] on 05/07/17 -showing persisted rt submandibular lymphadenopathy today she called her family physician office with complain of worsening of pain and discomfort on rt jaw swelling and pain was prescribed Keflex ( pt did not fill the prescription yet ) as was asked to come to ER for evaluation at ER her vitals were stable , no fever labs shows no leukocytosis, mild elevation of ESR , normal prolactin pt denies of any dysphagia , no swallowing difficulty , no chill or rigor no recent change in appetite, no night sweats , no wt loss pt is a non smoker no hx of chewing tobacco Physical Exam (per Admitting): General Appearance: no apparent distress Head: normocephalic, atraumatic Eyes: normal inspection, sclerae normal ENT: pharynx normal, + pertinent finding (enlarged and tender rt submandibular lymphnode , no overlying skin erythema , no open wound or dainage , /poor dention with decayed and brocken teeth ) Neck: thyroid normal, no JVD, no carotid bruits, trachea midline Respiratory/Chest: lungs clear, normal breath sounds, no respiratory distress Cardiovascular: regular rate, rhythm, no edema, normal peripheral pulses Abdomen/GI: normal bowel sounds, non tender, soft Extremities/Musculoskelatal: no calf tenderness, normal capillary refill, no pedal edema Neurologic/Psych: no motor/sensory deficits, alert, normal mood/affect, normal reflexes, oriented x 3 Skin: normal color, warm/dry, no rash Hospital Course This is a 31 year old female with a PMH of depression/anxiety, asthma - presents with possible odontogenic infection and submandibular lymph node tenderness on the R Persistent R sided Submandibular Lymphadenitis 05/13 plan is to d/c home today has an outpatient oral surgery appointment on 05/21 PCP follow-up will d/c with Bactrim and Vina PRN for pain 05/12 severe R sided tenderness to the R submandibular lymph node multiple antibiotics - was on clindamycin x2 courses, Bactrim, etc. appreciate oromaxillary facial surgery input was to be seen by surgeon as outpatient for tooth extraction to see facial surgeon in 2 weeks plan is to d/c home in 1-2 days on oral antibiotics outpatient maxillofacial/oral surgery follow-up Hx. of Depression/Anxiety continue home medications Hypothyroidism continue Synthroid GERD on PPI Asthma continue Singulair continue Advair Hx. of Lumbar Spine Stenosis continue Gabapentin DVT ppx SCDs FULL CODE Total time spent on discharge = 40 minutes This includes examination of the patient, discharge planning, medication reconciliation, and communication with other providers. Discharge Instructions Please follow up with Dr. Alcazar (covering for Dr. Saunders) on May 15 at 10:45AM * You will be prescribed Bactrim (antibiotic) - use this twice daily * Please follow-up with the oral surgeon on May 21 for the tooth extraction/ dental infection * You will be prescribed Vina for the pain - please only use this as needed and use Aleve/Ibuprofen in between - do not drive while taking this medications * stop taking your Tramadol
[2017-05-13 11:21] VITALS: BP 124/83; PULSE 84; TEMP 36.6; O2SAT 95
== END 2017-05-13 11:40 | disposition home or self-care (01) | DRG 159 ==
LOC: C.EDB 16:28 → C.MS4W 18:38 → ENRESERV 19:21
PROVIDERS: ADMIT Hospitalist; ATTEND Family Medicine
DX: K04.7 Periapical abscess without sinus (principal); I88.1 Chronic lymphadenitis, except mesenteric; E03.9 Hypothyroidism, unspecified; K21.9 Gastro-esophageal reflux disease without esophagitis; J45.909 Unspecified asthma, uncomplicated; G89.29 Other chronic pain; M51.16 Intervertebral disc disorders with radiculopathy, lumbar region; M48.061 Spinal stenosis, lumbar region without neurogenic claudication; F32.9 Major depressive disorder, single episode, unspecified; F41.1 Generalized anxiety disorder; F43.10 Post-traumatic stress disorder, unspecified; Z79.51 Long term (current) use of inhaled steroids; Z79.899 Other long term (current) drug therapy; Z88.0 Allergy status to penicillin; Z88.8 Allergy status to other drugs, medicaments and biological substances; Z91.030 Bee allergy status; Z91.018 Allergy to other foods; Z91.040 Latex allergy status; Z91.048 Other nonmedicinal substance allergy status

== ENCOUNTER 2019-09-09 05:09 | Observation (INO) ==
--- NOTE | 2019-09-06 16:05 | Anesthesiology Consultation ---
Date of Service September 06, 2019 Assessment & Plan (1) Encounter for pre-operative examination: Chart Review Chart Review: Acceptable Risk for Surgery (pending 09/05 Covid testing results ) and Patient NOT seen in Pre Admission Testing - Check BSG AM DOS - Check test AM DOS Per nursing assessment 09/05/19, pt denies recent travel. Does not wear mask due to asthma/anxiety but uses other precautions. Pt had preop Covid testing done 08/30/19 for prior to surgery- results negative. Pt getting re-tested preoperatively 09/05 at [facility]- results pending. D&C, Hysteroscopy 09/02/19= Done under [facility] with LMA #4. No noted anesthesia issues per anesthesia record. Per Dr. Leonel Merritt Communication note 09/05/19 and 09/06/19= Pt called in on 09/05/19 stating that she had a headache over the weekend which frequently occurs when she undergoes anesthesia. She was upset this was not properly addressed prior to her surgery and would like this to be acknowledged prior to her upcoming surgery. Pt prone to headaches after surgery due to history of migraines. Pt's also had significant HTN in PACU after recent surgery that also could have attributed to headache. Pt admitted to not taking BP AM of surgery. Pt instructed by Dr. Leonel Merritt to take Metoprolol in the AM of upcoming surgery . History Surgery Operation Date: 09/09/19 07:00 Proposed Procedures p Total Laparoscopic Hysterectomy, Bilateral Salpingectomy, Cystoscopy - Sybil Valentino Height/Weight Height: 5 ft 2 in Weight: 120.202 kg Allergies Allergy/AdvReac Type Severity Reaction Status Date / Time aripiprazole [From Abilify] Allergy Severe SWELLING Verified 09/05/19 13:19 OF LIPS bee venom protein (honey bee) Allergy Severe ANAPHYLAXIS Verified 09/05/19 13:19 Egg Derived Allergy Severe EDEMA-ALLERGY Verified 09/05/19 13:43 TO FLU SHOT Penicillins Allergy Severe QUIT Verified 09/05/19 13:19 BREATHING/SWELLING latex Allergy Intermediate HIVES,SOB Verified 09/05/19 13:19 benzoyl peroxide Allergy Mild RASH Verified 09/05/19 13:19 permethrin Allergy Mild RASH Verified 09/05/19 13:19 Cephalosporins Allergy Unknown Unknown Verified 09/05/19 13:19 nickel Allergy Unknown Rash Verified 09/05/19 13:20 promethazine AdvReac Mild VOMITING Verified 09/05/19 13:19 Vinegar Allergy Severe EDEMA OF Uncoded 09/05/19 13:19 FACE, LIPS, TONGUE Medications Home Medications Medication Instructions Recorded Confirmed Last Taken cetirizine 10 mg PO DAILY 07/15/18 09/05/19 09/01/19 19:00 meloxicam 15 mg PO QAM 07/15/18 09/05/19 09/01/19 07:00 methocarbamol 750 mg PO TID 07/15/18 09/05/19 09/01/19 19:00 montelukast 10 mg PO HS 07/15/18 09/05/19 09/01/19 19:00 bupropion HCl 150 mg PO QAM 01/27/19 09/05/19 09/01/19 07:00 bupropion HCl 300 mg PO QAM 01/27/19 09/05/19 09/01/19 07:00 buspirone 15 mg PO BID 01/27/19 09/05/19 09/01/19 19:00 clonazepam 1 mg PO TID 01/27/19 09/05/19 09/02/19 05:00 colestipol 2 g PO BID 01/27/19 09/05/19 09/01/19 07:00 dicyclomine 10 mg PO TID PRN 01/27/19 09/05/19 08/20/19 doxepin 300 mg PO QPM 01/27/19 09/05/19 09/01/19 19:00 esomeprazole magnesium 40 mg PO BID 01/27/19 09/05/19 09/01/19 19:00 losartan 100 mg PO QAM 01/27/19 09/05/19 09/01/19 07:00 metformin 1,000 mg PO BIDM 01/27/19 09/05/19 09/01/19 19:00 metoprolol succinate 200 mg PO QAM 01/27/19 09/05/19 09/01/19 07:00 ondansetron 4 mg PO Q8H PRN 01/27/19 09/05/19 09/01/19 07:00 sumatriptan succinate 10 mg PO DIRECTED PRN 01/27/19 09/05/19 08/24/19 07:00 blood sugar diagnostic #10 ea 05/06/19 08/22/19 Unknown ipratropium 0.5 mg-albuterol 3 mg 3 ml INH QID PRN #3 ml 05/06/19 09/05/19 08/16/19 (2.5 mg base)/3 mL nebulization soln Lantus U-100 Insulin 15 unit SUBCUT QAM 08/19/19 09/05/19 09/01/19 19:00 Ozempic 0.5 mg SUBCUT WK 08/19/19 09/05/19 08/30/19 07:00 albuterol sulfate [Proventil HFA] 1 puffs INH QID PRN 08/19/19 09/05/19 09/01/19 07:00 atorvastatin [Lipitor] 10 mg PO QAM 08/19/19 09/05/19 09/01/19 07:00 furosemide [Lasix] 40 mg PO QAM 08/19/19 09/05/19 08/29/19 07:00 insulin aspart U-100 [Novolog 1 sliding scale dose SUBCUT 08/19/19 09/05/19 09/01/19 18:00 U-100 Insulin aspart] USEASDIRECTD levothyroxine 200 mcg PO QAM 08/19/19 09/05/19 09/01/19 07:00 pregabalin [Lyrica] 300 mg PO BID 08/19/19 09/05/19 09/01/19 19:00 solifenacin [Vesicare] 10 mg PO QAM 09/05/19 09/05/19 Unknown Past Medical History Medical History Agoraphobia with panic attacks Anxiety and depression Asthma Using pro air in the mornings Chronic diarrhea Degenerative disc disease 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 Diabetes mellitus, type 2 Enlarged liver GERD (gastroesophageal reflux disease) Hyperlipidemia Hypertension Hypothyroidism Migraine Palpitations on BB for this Sleep apnea CPAP DEVICE Stress incontinence Uterine mass Past Family History Family History Other Past medical history not known due to adoption Past Surgical History Surgical History History of adenoidectomy History of appendectomy History of section X 3 History of cholecystectomy History of colonoscopy History of dilatation and curettage History of endoscopic sinus surgery History of esophagogastroduodenoscopy (EGD) History of tonsillectomy and adenoidectomy History of tooth extraction History of tubal ligation Nausea and vomiting after administration of anesthetic agent MIGRAINE HEADACHE-POST OP EGD/COLONOSCOPY 08/2019 Social History Smoking Status: Never smoker Do You Dip or Chew Tobacco: No Hx Alcohol Use: Yes Alcohol type: wine alcohol intake frequency: holidays/special occasions only Alcohol Intake Frequency Comment: SELDOM Hx Substance Use: No substance use type: does not use Testing Laboratory Results Laboratory Tests 08/25/19 08/25/19 12:40 12:40 WBC 6.64 Hgb 13.1 Hct 39.0 Plt Count 227 Sodium 138 Potassium 3.6 Chloride 102 Carbon Dioxide 30 BUN 8 Creatinine 0.81 Glucose 98 TSH 08/30/19= 3.87 Hgb A1C 08/30/19= 5.7 Electrocardiogram Date: 01/27/19 Findings: + NSR @ (80bpm) NSTWA, improved in anterior leads compared to 07/15/18 EKG. Chest X-Ray Date: 04/04/19 Findings: + NAD and + cardiomegaly
[2019-09-09] MEDS ORDERED: GENTAMICIN SULFATE 120 MG in DEXTROSE 5% 100 ML IV SCH (06:00)
[2019-09-09] MEDS ORDERED: LACTATED RINGER'S 1,000 ML IV SCH (06:00)
[2019-09-09] MEDS ORDERED: CLINDAMYCIN 600 MG/54 ML BAG IV SCH (06:00)
[2019-09-09] MEDS ORDERED: LR 15ML/HR IV SCH (06:00)
--- NOTE | 2019-09-09 06:19 | History & Physical Bridge Note ---
Date of Service September 09, 2019 History & Physical Bridge Note I have examined the patient, reviewed the History & Physical and in the interval since the performance of the History & Physical I have noted the following changes of clinical significance: no changes noted
[2019-09-09 06:31] LABS: Pregnancy Test, Serum Negative (Negative)
[2019-09-09] MEDS ORDERED: LIDOCAINE HCL 2% 2 ML VIAL/AMP(20MG/ML) INFIL ONE (06:42)
[2019-09-09] MEDS ORDERED: NEOSTIGMINE METHYLSULFATE 5 MG/5 ML SYR ONE (06:42)
[2019-09-09] MEDS ORDERED: MIDAZOLAM HCL 1 MG/ML 2ML VIAL ONE ×2 (06:42→06:45)
[2019-09-09] MEDS ORDERED: DEXAMETHASONE SOD INJ 4 MG/ML VIAL ONE (06:42)
[2019-09-09] MEDS ORDERED: PROPOFOL IV EMULSION 10 MG/ML 20 ML VIAL IV ONE (06:42)
[2019-09-09] MEDS ORDERED: ONDANSETRON INJ 2 MG/ML 2 ML VIAL ONE (06:42)
[2019-09-09] MEDS ORDERED: GLYCOPYRROLATE 0.2 MG/ML VIAL ONE (06:42)
[2019-09-09] MEDS ORDERED: fentaNYL citrate 100 MCG/2 ML VIAL ONE (06:43)
[2019-09-09] MEDS ORDERED: SCOPOLAMINE 1.5 MG TDSY TD ONE ×2 (06:43→06:46)
[2019-09-09] MEDS ORDERED: ATROPINE SULFATE 0.1 MG/ML 10ML SYR IV PRN (06:46)
[2019-09-09] MEDS ORDERED: HYDROmorphone INJ 1 MG/ML SYRINGE IV PRN (06:46)
[2019-09-09] MEDS ORDERED: fentaNYL citrate 100 MCG/2 ML VIAL IV PRN (06:46)
[2019-09-09] MEDS ORDERED: ONDANSETRON INJ 2 MG/ML 2 ML VIAL IV PRN ×2 (06:46→12:50)
[2019-09-09] MEDS ORDERED: ePHEDrine sulfate 50 MG/ML AMP IV PRN (06:46)
[2019-09-09] MEDS ORDERED: MEPERIDINE HCL 25 MG/ML CARP/VIAL IV PRN (06:46)
[2019-09-09] MEDS ORDERED: LABETALOL HCL IV 5 MG/ML 20ML IV PRN (06:47)
[2019-09-09] MEDS ORDERED: PHENYLEPHRINE 100MCG/ML 5ML SYR IV PRN (06:47)
[2019-09-09] MEDS ORDERED: BUPIVACAINE 0.5 % 5 MG/1 ML MPF 30ML VIAL ONE (06:57)
[2019-09-09] MEDS ORDERED: METHYLENE BLUE 0.5% 10 ML VIAL ONE (06:58)
[2019-09-09] MEDS ORDERED: HYDROmorphone INJ 2 MG/ML SYR/VIAL ONE (07:24)
[2019-09-09] MEDS ORDERED: KETOROLAC 30 MG/ML VIAL ONE (08:13)
[2019-09-09] MEDS ORDERED: ROCURONIUM BROMIDE 10 MG/ML 5 ML VIAL IV ONE (08:52)
[2019-09-09] MEDS ORDERED: ACETAMINOPHEN 1000 MG/100 ML IV IV ONE (09:14)
[2019-09-09] MEDS ORDERED: SUGAMMADEX SODIUM 200 MG/2 ML VIAL IV ONE (09:15)
[2019-09-09] MEDS ORDERED: PHENYLEPHRINE HCL 10 MG/ML VIAL ONE (09:21)
[2019-09-09] MEDS ORDERED: FLOSEAL HEMOSTATIC MATRIX 10ML TOP ONE (09:23)
[2019-09-09] MEDS ORDERED: TISSEEL FIBRIN SEALANT 10ML TOP ONE (09:23)
--- NOTE | 2019-09-09 09:56 | Post Operative Brief Note ---
Immediate Post Op Note v1 Date of Surgery September 09, 2019 Pre & Post Diagnosis Operation Date: 09/09/19 07:00 Pre-Op Diagnosis: Heavy Menstrual Bleeding, Dyspareunia Post-Op Diagnosis: Heavy Menstrual Bleeding, Dyspareunia I identified the patient and participated in the time-out.: Yes Procedure Operation Date: 09/09/19 07:00 Actual Procedures p Total Laparoscopic Hysterectomy, Lysis of adhesions, Possible Left Salpingectomy, Cystoscopy(Left) - Sybil Valentino Surgeon Sybil Valentino Alligator Shear Operator Dary Morse PA-C Estimated Blood Loss 50 Findings Consistent with Post-Op Diagnosis Drains Sr Catheter (16fr silicone sr catheter placed at beginning of procedure by DIETARY CLERK, sr demonstrates clear yellow urine. Output measured and recorded by anesthesia. Catheter removed prior to cysto portion of procedure and remains out upon discharge from OR, as per surgeon.)
--- NOTE | 2019-09-09 10:11 | Operative Report ---
Post Operative Report Pre & Post Diagnosis Operation Date: 09/09/19 07:00 Pre-Op Diagnosis: Heavy Menstrual Bleeding, Dyspareunia Post-Op Diagnosis: Heavy Menstrual Bleeding, Dyspareunia I identified the patient and participated in the time-out.: Yes Procedure Operation Date: 09/09/19 07:00 Actual Procedures p Total Laparoscopic Hysterectomy, Lysis of adhesions, Possible Left Salpingectomy, Cystoscopy(Left) - Sybil Valentino Surgeon Sybil Valentino Procurement Director Dary Morse PA-C Estimated Blood Loss 50 Findings See Below 1. 11 cm severely anteverted uterus 2. The anterior body of the uterus and the fundus was adhered to the anterior abdominal wall 3. Normal appearing left ovary with a simple appearing cyst 4. Normal appearing right ovary 5. Truncated portion of the left fallopian tube visualized (h/o tubal ligation) 6. Right fallopian tube not visualized 7. Anterior cul-de-sac was obliterated 8. Filmy bowel adhesion to the right posterior uterine wall 9. Posterior cul-de-sac was free of adhesions or lesions 10. Normal appearing liver edge 11. On cystoscopy, normal appearing bladder dome which was free of lesions or suture 12. Brisk bilateral efflux of methylene blue by the ureteral orifices Fluids 2500 ml Specimens Uterus, cervix, and portion of the left fallopian tube Drains Sr catheter removed prior to the end of the surgery. 300 ml of urine. Anesthesia Type General Complications none Indications 33 yo with abnormal uterine bleeding and dyspareunia desiring definitive surgical management. Description of Procedure Under GA in the dorsal lithotomy position, the patient was prepped and drapped in the usual sterile fashion. Beginning at the vagina, a sr catheter was inserted under sterile conditions and left in situ for the remainder of the case. A weighted speculum was then placed in the vagina and with the help of a right angle retractor the cervix was visualized and grasped anteriorly with a single tooth tenaculum. The uterus was sounded to 11 cm with a uterine sound. The cervical os was dilated up. An Advincula uterine manipulator with a metal cup was inserted. The weighted speculum was then removed. Attention was then turned to the abdomen. 0.5% marcaine solution was used for infiltration of all port sites. Beginning in the subumbilical area, the skin was first infiltrated with ~ 2 cc of the marcaine solution, then a 5 mm incision was made through the skin with a #11 blade. Direct entry with a 5 mm trocar, sleeve, and laparoscope was made into the peritoneal cavity. The opening pressure was < 8 mmHg. The peritoneal cavity was insufflated with CO2 gas to a maximum pressure of 20 mmHg. Examination of the peritoneal cavity revealed no signs of injury from entry and the above noted structures.The patient was then placed in steep Trendelenburg and three more 5 mm trocars were placed, one on the right and two on the left, in the standard technique, taking care to avoid the epigastric vessels. All trocars were placed under direct visualization with no inadvertent damage to underlying structures. The uterus was severely adhered to the anterior abdominal wall and the ovaries and tubes as previously described. The EDUARDO Harmonic was used to gently grasp, coagulate and cut the filmy bowel adhesion to the right posterior uterine wall. Extensive lysis of adhesions was then performed to restore normal anatomy and remove the uterus from the anterior abdominal wall. This was preformed approximately over one hour using the EDUARDO Harmonic, gentle traction countertraction, and hydrodissection to recreate the anterior cul-de-sac. Attention was then turned to the left side and the proximal portion the fallopian tube was grasped, clamped, ligated, and cut using the EDUARDO Harmonic working alongside the length of the tube and towards the cornua. Once the level of the cornua was reached the tube was ligated and cut . The round ligament was then ligated and cut. Following this, the anterior leaf of the broad ligament was then taken down on the left side, dissecting down towards the peritoneal reflection at the base of the bladder and adjacent to the cervix. Attention was then turned to the right side. The right fallopian tube was not visualized. The right round ligament was ligated and cut. Following this, the anterior leaf of the broad ligament was then taken down on the right side, dissecting down towards the peritoneal reflection at the base of the bladder and adjacent to the cervix such that both sides met and the anterior leaflet had been appropriately skeletonized. The right uterine ovarian ligament was then grasped, coagulated and cut allowing the ovary to detach from the uterus. The posterior leaf was then taken down. The same process was repeated on the left side. Once the bladder was appropriately dissected free from the lower anterior uterine segment and the tissues skeletonized, the uterine arteries were bilaterally clamped and ligated. Pedicles were checked and hemostatic. At the level of the metal cup of the uterine manipulator, the vaginal vault was incised circumferentially with the EDUARDO Harmonic. The uterus, cervix,and portion of the left fallopian tube was delivered through the vagina and sent to pathology. A vaginal occluder was then placed into the vagina to form a pneumatic seal and all the pedicles as well as the cuff edges were examined. Hemostasis was achieved with bipolar cautery. The vaginal vault was then closed with a V-Loc barbed stitch being sure to avoid the bladder lateral pedicles. Floseal and Tisseal was placed on the adnexa regions, vaginal cuff, and the dissected anterior abdominal wall. An inspection of all areas was made to ensure hemostasis. All ports were removed under direct visualization and hemostasis noted. All the incision sites were then closed with 4-0 monocryl sutures in a subcuticular fashion and dermabond. The sr catheter and vaginal occluder were removed without incident. Cystoscopy was performed. Normal appearing bladder dome which was free of lesions or suture. There was brisk bilateral efflux of methylene blue by the ureteral orifices. The bladder was drained and the cystoscope was removed without incident. At the end of the procedure, all sponges, instruments, and sharps were counted and correct. Estimated blood loss was 50 ml. The patient was taken to recovery in stable condition. My Procurement Director was necessary throughout the procedure for uterine manipulation, retraction, handling of the laparoscope and laparoscopic instruments to ensure adequate visualization, gentle tissue manipulation, and hemostasis. I attest to the content of the Intraoperative Record and any orders documented therein. Any exceptions are noted below.
--- NOTE | 2019-09-09 11:06 | Anesthesiology Progress Note ---
Date of Service September 09, 2019 Anesthesia Post Procedure Vital Signs Vital Signs: Temp Pulse Pulse Resp BP Pulse Ox 09/09/19 10:55 36.6 C 82 14 131/85 94 09/09/19 10:45 79 14 120/67 99 09/09/19 10:35 77 14 109/68 99 09/09/19 10:25 77 14 108/69 98 09/09/19 10:15 36.2 C L 76 14 103/69 95 09/09/19 06:05 37 C 83 18 137/85 96 Transfer of Care Handoff Completed per policy Notes Mental Status: alert / awake / arousable Patient Amnestic to Procedure: Yes Nausea / Vomiting: adequately controlled Pain: adequately controlled Airway Patency, RR, SpO2: stable & adequate BP & HR: stable & adequate Hydration State: stable & adequate Anesthetic Complications: no major complications apparent and Pt Satisfied with anesthetic care Notes: The patient is awake and comfortable. Her vital signs are stable. She does not have a headache or nausea.
[2019-09-09] MEDS ORDERED: ALBUT/IPRATROP 3MG/0.5MG NEB 3 ML VIAL INH PRN (12:50)
[2019-09-09] MEDS ORDERED: ALBUTEROL HFA 8 GM INHALER INH PRN (12:50)
[2019-09-09] MEDS ORDERED: GLUCOSE 10 TABS/TUBE PO PRN (13:15)
[2019-09-09] MEDS ORDERED: GLUCAGON FOR INJ 1 MG VIAL IM PRN (13:15)
[2019-09-09] MEDS ORDERED: CARBOHYDRATES FOR HYPOGLYCEMIA PO PRN (13:15)
[2019-09-09] MEDS ORDERED: DEXTROSE 50% 50 ML SYRINGE IV PRN (13:15)
[2019-09-09] MEDS ORDERED: GLUCOSE 40% GEL 15 GM TUBE PO PRN (13:15)
[2019-09-09] MEDS ORDERED: INSULIN ASPART 100 UNITS/ML 3 ML PEN SC ONE (14:00)
[2019-09-09] MEDS: SIMETHICONE 80 MG CHEW PO SCH ×3 (14:01→23:54)
[2019-09-09] MEDS: ACETAMINOPHEN 325 MG TAB PO SCH ×2 (14:02→18:20)
[2019-09-09] MEDS: IBUPROFEN 600 MG TAB PO SCH ×2 (14:02→18:20)
[2019-09-09] MEDS: clonazePAM 1 MG TAB PO SCH ×2 (15:10→21:09)
[2019-09-09] MEDS: METHOCARBAMOL 750 MG TABLET PO SCH ×2 (15:11→20:40)
[2019-09-09] MEDS ORDERED: INSULIN ASPART 100 UNITS/ML 3 ML PEN SC SCH (16:30)
[2019-09-09] MEDS: OXYCODONE HCL IR 5 MG TAB (IMMEDIATE RELEASE) PO PRN ×2 (16:42→23:54)
[2019-09-09] MEDS: CHECK SCOPOLAMINE PATCH PLACEMENT SCH ×2 (16:44→23:30)
[2019-09-09] MEDS: INSULIN ASPART 100 UNITS/ML 3 ML PEN SC SCH ×2 (18:57→22:03)
[2019-09-09] MEDS: BusPIRone 15 MG TAB PO SCH (20:32)
[2019-09-09] MEDS: DOCUSATE SODIUM 100 MG CAP PO SCH (20:35)
[2019-09-09] MEDS: PANTOprazole 40 MG TAB PO SCH (20:40)
[2019-09-09] MEDS ORDERED: MONTELUKAST SODIUM 10 MG TABLET PO SCH (21:00)
[2019-09-09] MEDS ORDERED: DOXEPIN HCL 75 MG CAPSULE PO SCH (21:00)
[2019-09-09] MEDS: PREGABALIN 150 MG CAP PO SCH (21:10)
[2019-09-09] MEDS ORDERED: COLESTIPOL HCL 1 GM TAB PO SCH (22:00)
[2019-09-10] MEDS: SIMETHICONE 80 MG CHEW PO SCH (06:26)
[2019-09-10] MEDS: IBUPROFEN 600 MG TAB PO SCH ×2 (06:26)
[2019-09-10] MEDS: ACETAMINOPHEN 325 MG TAB PO SCH ×2 (06:27)
[2019-09-10] MEDS ORDERED: LEVOTHYROXINE SODIUM 200 MCG TABLET PO SCH (06:30)
--- NOTE | 2019-09-10 08:30 | Gynecologic Progress Note ---
Date of Service September 10, 2019 Assessment & Plan (1) S/P laparoscopic hysterectomy: POD#1. s/p Extensive IRENA, TLH/Right Salpingectomy/Cystoscopy. Pain controlled with oral medications. Tolerating regular diet. Meeting all discharge criteria. Discharge home with instructions. Post-operative medications previously prescribed. Admission and Anticipated Discharge Date Admission Date: September 09, 2019 Subjective POD#1. s/p Lysis of adhesions, Total laparoscopic hysterectomy, Left salpingectomy and cystoscopy. Patient reports minimally pain which is mostly controlled with NSAIDs and tylenol. Per Patient, only used two pain medication overnight. Patient also reported nausea overnight which was relieved with zofran. Denies vomiting. Tolerating regular diet. Ambulating and urinating well. Review of Systems Review of Systems: All systems reviewed & are unremarkable except as noted in HPI & below Physical Exam Constitutional: WD/WN, vitals as above Respiratory: normal respiratory effort, lungs clear to auscultation Cardiovascular: RRR, no murmur, no edema Gastrointestinal (Abdomen): Inspection/Auscultation: abdomen normal to inspection and normal bowel sounds Obese. Appropriately tender to palpation. Incisions: C/D/I. No erythema or edema. Results & Data ([facility]) Vital Signs (Past 12 Hours) Vital Signs Temp Pulse Resp BP Pulse Ox 09/10/19 03:55 36.7 C 86 18 115/71 92 09/09/19 23:25 36.6 C 85 18 116/73 94
[2019-09-10] MEDS ORDERED: ATORVASTATIN 10 MG TAB PO SCH (09:00)
[2019-09-10] MEDS ORDERED: INSULIN GLARGINE SOLOSTAR 100 UNITS/ML 3 ML PEN SQ SCH ×2 (09:00)
[2019-09-10] MEDS ORDERED: CETIRIZINE HCL 10 MG TABLET PO SCH (09:00)
[2019-09-10] MEDS ORDERED: MELOXICAM 7.5 MG TAB PO SCH (09:00)
[2019-09-10] MEDS ORDERED: LOSARTAN POTASSIUM 50 MG TAB PO SCH (09:00)
[2019-09-10] MEDS ORDERED: BuPROPion XL 300 MG TABCR PO SCH (09:00)
[2019-09-10] MEDS ORDERED: METOPROLOL SUCC 50MG EXT REL TAB PO SCH (09:00)
[2019-09-10] MEDS ORDERED: FUROSEMIDE 40 MG TAB PO SCH (09:00)
[2019-09-10] MEDS ORDERED: BuPROPion XL 150 MG TABCR PO SCH (09:00)
--- NOTE | 2019-09-10 09:01 | Discharge Summary ---
Date of Service September 10, 2019 Admission HPI Per Admitting Provider 33 year [id number] with LMP08/21/2019 using BTL for contraception presentswithheavy menstrual bleeding and dyspareunia. Monthly menses, lasting 7-9 days with heavy menstrual bleeding. Heavy menses every other month. During the times of heavy menses, Patient reports changing tampon every half an hour. Other months, Patient will have light menses with spotting. Denies intermenstrual or post-coital bleeding. Patient reports pain with menses and intercourse which started a yearago.Dyspareuniaissharpandstabbing in nature. Painat the introitus andwithdeeper penetration. Patient used OCPs for HMB. No symptoms on OCPs. Discontinued OCPs in Mar 2018secondary weight gain. Patient had an IUD in the past, IUD surgically removed secondary to migration. Denies abnormal vaginal discharge. Deniesurinary or bowel symptoms. Admission Exam (Per Admitting) Constitutional WD/WN, vitals as above Respiratory normal respiratory effort, lungs clear to auscultation Cardiovascular RRR, no murmur, no edema Gastrointestinal (Abdomen) Inspection/Auscultation: abdomen normal to inspection and normal bowel sounds Discharge Data Procedures Performed Operation Date: 09/09/19 07:00 Actual Procedures p Total Laparoscopic Hysterectomy, Lysis of adhesions, Possible Left Salpingectomy, (Left) - Sybil Jerome BardalesChelsy Cystoscopy(Left) - [place] [facility] (1) S/P laparoscopic hysterectomy: POD#1. s/p Extensive IRENA, TLH/Right Salpingectomy/Cystoscopy. Pain contr olled with oral medications. Tolerating regular diet. Meeting all discharge criteria. Discharge home with instructions. Post-operative medications previously prescribed.
[2019-09-10] MEDS: clonazePAM 1 MG TAB PO SCH (09:02)
[2019-09-10] MEDS: PREGABALIN 150 MG CAP PO SCH (09:02)
[2019-09-10] MEDS: METHOCARBAMOL 750 MG TABLET PO SCH (09:03)
[2019-09-10] MEDS: PANTOprazole 40 MG TAB PO SCH (09:04)
[2019-09-10] MEDS: BusPIRone 15 MG TAB PO SCH (09:04)
[2019-09-10] MEDS: INSULIN ASPART 100 UNITS/ML 3 ML PEN SC SCH (09:05)
[2019-09-10] MEDS: DOCUSATE SODIUM 100 MG CAP PO SCH (09:05)
== END 2019-09-10 09:35 | disposition home or self-care (01) ==
LOC: 4N 05:09 → ASU 05:09

== ENCOUNTER 2019-12-03 19:11 | Observation (INO) ==
[2019-12-03] MEDS ORDERED: MoRPHine SULFATE 4 MG/ML 1 ML CARP\\VIAL IV STA (19:36)
[2019-12-03] MEDS ORDERED: ONDANSETRON INJ 2 MG/ML 2 ML VIAL IV STA (19:36)
--- NOTE | 2019-12-03 19:43 | Emergency Department Note ---
History of Present Illness General Chief complaint: Groin Pain Stated complaint: LEFT GROIN PAIN Time Seen by Provider: 12/03/19 19:27 Source: patient History of Present Illness Provider complaint: Left groin pain Onset (ago): day(s) Location: abdomen and left Radiation: non-radiation Severity: severe Pain Consistency: + intermittent Maximum Pain Intensity: 8 Quality: + burning and + sharp Exacerbated By: + movement Associated symptoms: + nausea/vomiting (Nausea due to pain no vomiting); no chest pain, no cough, no fever/chills and no shortness of breath This is a 34-year-old female who presents with left groin pain for the past 2 days. She states the pain is along her left inguinal ligament. It is sharp and burning. Is worse when she tries to move her leg or get out of the car. She denies any radiation of pain. She has no back pain. She rates an 8 out of 10 in severity. She denies any injury to cause the pain. She has had some associated nausea but she states she tends to get nausea when she is in pain. She denies vomiting, fever, chest pain, shortness of breath, cough or cold symptoms, diarrhea or urinary symptoms. She denies any known exposure to COVID- 19. She does state that she had a total hysterectomy. She has had no abnormal vaginal bleeding or discharge. Home Medications Home Medications Medication Instructions Recorded Confirmed Type cetirizine 10 mg PO HS 07/15/18 12/03/19 History meloxicam 15 mg PO QAM 07/15/18 12/03/19 History methocarbamol 750 mg PO TID 07/15/18 12/03/19 History montelukast 10 mg PO HS 07/15/18 12/03/19 History bupropion HCl 150 mg PO QAM 01/27/19 12/03/19 History bupropion HCl 300 mg PO QAM 01/27/19 12/03/19 History buspirone 15 mg PO BID 01/27/19 12/03/19 History clonazepam 1 mg PO TID 01/27/19 12/03/19 History doxepin 300 mg PO HS 01/27/19 12/03/19 History esomeprazole magnesium 40 mg PO BID 01/27/19 12/03/19 History losartan 100 mg PO QAM 01/27/19 12/03/19 History metoprolol succinate 200 mg PO QAM 01/27/19 12/03/19 History ondansetron 4 mg PO Q8H PRN 01/27/19 12/03/19 History sumatriptan succinate 10 mg PO DIRECTED PRN 01/27/19 12/03/19 History blood sugar diagnostic #10 ea 05/06/19 09/07/19 History ipratropium 0.5 mg-albuterol 3 mg 3 ml INH QID PRN #3 ml 05/06/19 12/03/19 Rx (2.5 mg base)/3 mL nebulization soln Lantus U-100 Insulin 15 unit SUBCUT QAM 08/19/19 12/03/19 History Ozempic 0.5 mg SUBCUT WK 08/19/19 12/03/19 History albuterol sulfate [Proventil HFA] 1 puffs INH QID PRN 08/19/19 12/03/19 History atorvastatin [Lipitor] 10 mg PO QAM 08/19/19 12/03/19 History furosemide [Lasix] 40 mg PO QAM 08/19/19 12/03/19 History insulin aspart U-100 [Novolog 5 unit SUBCUT USEASDIRECTD 08/19/19 12/03/19 History U-100 Insulin aspart] levothyroxine 200 mcg PO QAM 08/19/19 12/03/19 History pregabalin [Lyrica] 300 mg PO BID 08/19/19 12/03/19 History solifenacin [Vesicare] 10 mg PO QAM 09/05/19 12/03/19 History Allergies Allergy/AdvReac Type Severity Reaction Status Date / Time aripiprazole [From Abilify] Allergy Severe SWELLING Verified 12/03/19 20:25 OF LIPS bee venom protein (honey bee) Allergy Severe ANAPHYLAXIS Verified 12/03/19 20:25 Egg Derived Allergy Severe EDEMA-ALLERGY Verified 12/03/19 20:25 TO FLU SHOT Penicillins Allergy Severe QUIT Verified 12/03/19 20:25 BREATHING/SWELLING latex Allergy Intermediate HIVES,SOB Verified 12/03/19 20:25 benzoyl peroxide Allergy Mild RASH Verified 12/03/19 20:25 permethrin Allergy Mild RASH Verified 12/03/19 20:25 Cephalosporins Allergy Unknown Unknown Verified 12/03/19 20:25 nickel Allergy Unknown Rash Verified 12/03/19 20:25 promethazine AdvReac Mild VOMITING Verified 12/03/19 20:25 Vinegar Allergy Severe EDEMA OF Uncoded 12/03/19 20:25 FACE, LIPS, TONGUE Past Med/Surg History Medical History Agoraphobia with panic attacks Anxiety and depression Asthma Using pro air in the mornings Chronic diarrhea Degenerative disc disease 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 Diabetes mellitus, type 2 Enlarged liver GERD (gastroesophageal reflux disease) Hyperlipidemia Hypertension Hypothyroidism Migraine Palpitations on BB for this Sleep apnea CPAP DEVICE Stress incontinence Uterine mass Surgical History History of adenoidectomy History of appendectomy History of section X 3 History of cholecystectomy History of colonoscopy History of dilatation and curettage History of endoscopic sinus surgery History of esophagogastroduodenoscopy (EGD) History of tonsillectomy and adenoidectomy History of tooth extraction History of tubal ligation Nausea and vomiting after administration of anesthetic agent MIGRAINE HEADACHE-POST OP EGD/COLONOSCOPY 08/2019 Family History Other Past medical history not known due to adoption Social History Smoking Status: Never smoker Second Hand Exposure: No; Hx Alcohol Use: Yes Alcohol type: wine Hx Substance Use: No Preferred Language: Portuguese Communication Ability: Effective Visual Impairment: No Limitations Hearing Ability: Use of Hearing Aid [employer] Teacher Required: No Beliefs That Will Affect Care: None marital status: Current Living Situation: Spouse and Family current occupational status: employed current occupation: homemaker Feels Safe at Home: Yes Childhood Exposure to Second-Hand Smoke: Yes caffeine: Yes (coffee) during the past year weight has: other Dental Care, Regularly: No Physical Activity Frequency: Does not Exercise Seatbelt Use: always Sunscreen Use: No Review of Systems See HPI for pertinent positives & negatives. and A total of 10 systems reviewed and were otherwise negative Physical Exam Vital Signs Vital Signs - 24 hr 12/03/19 19:13 12/03/19 19:22 12/03/19 19:36 Temperature 37.0 C Temperature Source Oral Pulse Rate 115 H Pulse Rate [Finger] Respiratory Rate 18 Respiratory Depth Blood Pressure 188/105 H Blood Pressure [Right Arm] 195/154 H Blood Pressure Mean 132 Blood Pressure Mean [Right Arm] 167 Blood Pressure Position [Right Arm] Sitting Pulse Oximetry 99 95 Oxygen Delivery Method Room Air Room Air Sepsis Recent Fever Within 48 Hours No Sepsis New/Unexplained Change in Mental Status No Sepsis Action Taken by Nursing No Action Required 12/03/19 21:12 12/03/19 23:13 Temperature Temperature Source Pulse Rate Pulse Rate [Finger] 101 H Respiratory Rate 22 Respiratory Depth Normal Blood Pressure Blood Pressure [Right Arm] 159/92 H 166/92 H Blood Pressure Mean Blood Pressure Mean [Right Arm] 114 116 Blood Pressure Position [Right Arm] Pulse Oximetry 96 Oxygen Delivery Method Room Air Sepsis Recent Fever Within 48 Hours Sepsis New/Unexplained Change in Mental Status Sepsis Action Taken by Nursing Constitutional: Vital signs reviewed. Eyes: Pupils are equal round reactive to light. Conjunctiva are noninjected. ENT: Pharynx is clear without erythema or exudate. Mucous membranes are moist. Neck supple without meningeal signs. Respiratory: Clear to auscultation bilaterally. Breath sounds are equal bilaterally. Cardiovascular: Regular rate and rhythm. No rubs or gallops. GI: Soft with tenderness along the left inguinal ligament. Exam is somewhat compromised due to body habitus. No masses are appreciated. Bowel sounds are present. Musculoskeletal: No peripheral edema. No lower extremity tenderness. Integumentary: No cyanosis. or jaundice. Neurological: The patient is awake and alert. No focal deficits. Normal motor function and sensation in the distal left extremity. Unable to assess the proximal limb due to significant pain. Psychiatric: Normal affect. Not anxious appearing. Course Administered Medications Discontinued Medications Ioversol (Ioversol 100ml) 94 ml IV ONCE ONE Stop: 12/03/19 23:06 Last Admin: 12/03/19 23:05 Dose: 94 ml Documented by: [id number] Morphine Sulfate (Morphine Sulfate 4 Mg/Ml 1 Ml Carp\Vial) 4 mg IV NOW STA Stop: 12/03/19 19:37 Last Admin: 12/03/19 21:11 Dose: 4 mg Documented by: [id number] Ondansetron HCl (Ondansetron Inj 2 Mg/Ml 2 Ml Vial) 4 mg IV NOW STA Stop: 12/03/19 19:37 Last Admin: 12/03/19 21:12 Dose: 4 mg Documented by: [id number] Oxycodone HCl (Oxycodone Ir Home Pack) 1 homepack PO UD ONE Stop: 12/03/19 23:25 Last Admin: 12/03/19 23:41 Dose: Not Given Documented by: [id number] Oxycodone HCl (Oxycodone Hcl Ir 5 Mg Tab (Immediate Release)) 5 mg PO NOW STA Stop: 12/03/19 23:25 Last Admin: 12/03/19 23:41 Dose: 5 mg Documented by: [id number] Medical Decision Making Differential Diagnosis Inguinal hernia, incarcerated hernia, ovarian cyst, ovarian torsion, strain Medical Records Attestation: I reviewed the patient's medical records. The patient was seen here at the end of October for leg swelling. She had a CT angiogram of the chest and abdomen at that time which showed no signs of kidney stones and she did have a right ovarian cyst. Home Medications Current Medication List: was personally reviewed by me Laboratory Data Attestation: I reviewed the patient's lab results. Result diagrams: 12/03/19 22:00 12/03/19 21:01 Lab Results 12/03/19 12/03/19 12/03/19 Range/Units 20:30 20:30 21:01 WBC Cancelled RBC Cancelled Hgb Cancelled Hct Cancelled MCV Cancelled MCH Cancelled MCHC Cancelled RDW Std Deviation Cancelled RDW Coeff of Duane Cancelled Plt Count Cancelled MPV Cancelled Immature Gran % (Auto) Cancelled Neut % (Auto) Cancelled Lymph % (Auto) Cancelled [place] % (Auto) Cancelled Eos % (Auto) Cancelled Baso % (Auto) Cancelled Neut # (Auto) Cancelled Lymph # (Auto) Cancelled [place] # (Auto) Cancelled Eos # (Auto) Cancelled Baso # (Auto) Cancelled Immature Gran # (Auto) Cancelled Absolute Nucleated RBC Cancelled Nucleated RBC % (auto) Cancelled Neutrophils % (Manual) Cancelled Band Neutrophils % Cancelled Lymphocytes % (Manual) Cancelled Prolymphocyte % Cancelled Reactive Lymphs % (Man) Cancelled Monocytes % (Manual) Cancelled Eosinophils % (Manual) Cancelled Basophils % (Manual) Cancelled Metamyelocytes % (Man) Cancelled Myelocytes % (Man) Cancelled Promyelocytes % (Man) Cancelled Blast Cells % (Manual) Cancelled Plasma Cell % (Manual) Cancelled Other Cells % Cancelled Nucleated RBC % Cancelled Neutrophils # (Manual) Cancelled Band Neutrophils # Cancelled Total Absolute Neuts Cancelled Lymphocytes # (Manual) Cancelled Prolymphocyte # Cancelled Reactive Lymphs # Cancelled Total Abs Lymphocytes Cancelled Monocytes # (Manual) Cancelled Eosinophils # (Manual) Cancelled Basophils # (Manual) Cancelled Metamyelocytes # (Man) Cancelled Myelocytes # (Manual) Cancelled Promyelocytes # (Man) Cancelled Blast Cells # (Man) Cancelled Plasma Cell # (Manual) Cancelled Other Cells # Cancelled Nucleated RBCs # (Man) Cancelled Hypersegmented Neuts Cancelled Hyposegmented Neuts Cancelled Hypogranular Neuts Cancelled Large Granular Lymphs Cancelled # Lrg Granular Lymphs Cancelled Hairy Cells Cancelled Smudge Cells Cancelled Toxic Granulation Cancelled Toxic Vacuolation Cancelled Dohle Bodies Cancelled Eva Rods Cancelled Platelet Estimate Cancelled Hypogranular Platelets Cancelled Clumped Platelets Cancelled Giant Platelets Cancelled Platelet Satelliting Cancelled RBC Morphology Cancelled Polychromasia Cancelled Hypochromasia Cancelled Poikilocytosis Cancelled Basophilic Stippling Cancelled Anisocytosis Cancelled Microcytosis Cancelled Macrocytosis Cancelled Spherocytes Cancelled Pappenheimer Bodies Cancelled Sickle Cells Cancelled Target Cells Cancelled Tear Drop Cells Cancelled Ovalocytes Cancelled Stomatocytes Cancelled Chao-[place] Bodies Cancelled Echinocytes Cancelled Acanthocytes (Spur) Cancelled Rouleaux Cancelled RBC Agglutinates Cancelled Schistocytes Cancelled RBC Morph Comment Cancelled Sezary Cell Cancelled Sodium (136-145) mmol/L Potassium (3.5-5.1) mmol/L Chloride (98-107) mmol/L Carbon Dioxide (21-32) mmol/L Anion Gap (3-11) BUN (7-18) mg/dl Creatinine (0.6-1.2) mg/dl Est Cr Clr Drug Dosing ml/min Est GFR ( Amer) Est GFR (Non-Af Amer) BUN/Creatinine Ratio (10-20) Glucose (70-99) mg/dl Calcium (8.5-10.1) mg/dl Total Bilirubin (0.2-1) mg/dl AST (15-37) U/L ALT (12-78) U/L Alkaline Phosphatase (45-117) U/L Total Protein (6.4-8.2) gm/dl Albumin (3.4-5.0) gm/dl Globulin (2.5-4.0) gm/dl Albumin/Globulin Ratio (0.9-2) Lipase (73-393) U/L Specimen Hemolysis Urine Color Yellow Urine Appearance Clear (Clear) Urine pH 7.0 (4.5-7.5) Ur Specific [place] 1.021 (1.000-1.030) Urine Protein Negative (Negative) Urine Glucose (UA) Negative (Negative) Urine Ketones Negative (Negative) Urine Blood Negative (Negative) Urine Nitrite Negative (Negative) Urine Bilirubin Negative (Negative) Urine Urobilinogen Negative (Negative) Ur Leukocyte Esterase Negative (Negative) POC Ur Test NEG (NEG) 12/03/19 12/03/19 Range/Units 21:01 22:00 WBC 8.46 RBC 3.58 L Hgb 10.3 L Hct 31.0 L MCV 86.6 MCH 28.8 MCHC 33.2 RDW Std Deviation 39.2 RDW Coeff of [place] 12.3 Plt Count 220 MPV 9.7 Immature Gran % (Auto) 0.5 Neut % (Auto) 60.9 Lymph % (Auto) 28.8 [place] % (Auto) 7.3 Eos % (Auto) 2.1 Baso % (Auto) 0.4 Neut # (Auto) 5.15 Lymph # (Auto) 2.44 [place] # (Auto) 0.62 H Eos # (Auto) 0.18 Baso # (Auto) 0.03 Immature Gran # (Auto) 0.04 H Absolute Nucleated RBC Nucleated RBC % (auto) Neutrophils % (Manual) Band Neutrophils % Lymphocytes % (Manual) Prolymphocyte % Reactive Lymphs % (Man) Monocytes % (Manual) Eosinophils % (Manual) Basophils % (Manual) Metamyelocytes % (Man) Myelocytes % (Man) Promyelocytes % (Man) Blast Cells % (Manual) Plasma Cell % (Manual) Other Cells % Nucleated RBC % Neutrophils # (Manual) Band Neutrophils # Total Absolute Neuts Lymphocytes # (Manual) Prolymphocyte # Reactive Lymphs # Total Abs Lymphocytes Monocytes # (Manual) Eosinophils # (Manual) Basophils # (Manual) Metamyelocytes # (Man) Myelocytes # (Manual) Promyelocytes # (Man) Blast Cells # (Man) Plasma Cell # (Manual) Other Cells # Nucleated RBCs # (Man) Hypersegmented Neuts Hyposegmented Neuts Hypogranular Neuts Large Granular Lymphs # Lrg Granular Lymphs Hairy Cells Smudge Cells Toxic Granulation Toxic Vacuolation Dohle Bodies Eva Rods Platelet Estimate Hypogranular Platelets Clumped Platelets Giant Platelets Platelet Satelliting RBC Morphology Polychromasia Hypochromasia Poikilocytosis Basophilic Stippling Anisocytosis Microcytosis Macrocytosis Spherocytes Pappenheimer Bodies Sickle Cells Target Cells Tear Drop Cells Ovalocytes Stomatocytes Chao-[place] Bodies Echinocytes Acanthocytes (Spur) Rouleaux RBC Agglutinates Schistocytes RBC Morph Comment Sezary Cell Sodium 139 (136-145) mmol/L Potassium 3.6 (3.5-5.1) mmol/L Chloride 104 (98-107) mmol/L Carbon Dioxide 27 (21-32) mmol/L Anion Gap 8.0 (3-11) BUN 6 L (7-18) mg/dl Creatinine 0.79 (0.6-1.2) mg/dl Est Cr Clr Drug Dosing 121.4 ml/min Est GFR ( Amer) 111.6 Est GFR (Non-Af Amer) 96.3 BUN/Creatinine Ratio 7.6 L (10-20) Glucose 124 H (70-99) mg/dl Calcium 9.1 (8.5-10.1) mg/dl Total Bilirubin 0.2 (0.2-1) mg/dl AST 43 H (15-37) U/L ALT 56 (12-78) U/L Alkaline Phosphatase 127 H (45-117) U/L Total Protein 7.2 (6.4-8.2) gm/dl Albumin 3.6 (3.4-5.0) gm/dl Globulin 3.6 (2.5-4.0) gm/dl Albumin/Globulin Ratio 1.0 (0.9-2) Lipase 103 (73-393) U/L Specimen Hemolysis Urine Color Urine Appearance (Clear) Urine pH (4.5-7.5) Ur Specific [place] (1.000-1.030) Urine Protein (Negative) Urine Glucose (UA) (Negative) Urine Ketones (Negative) Urine Blood (Negative) Urine Nitrite (Negative) Urine Bilirubin (Negative) Urine Urobilinogen (Negative) Ur Leukocyte Esterase (Negative) POC Ur Test (NEG) Imaging Data Radiologist's Impression: ULTRASOUND OF THE PELVIS CLINICAL HISTORY: Left pelvic pain. COMPARISON STUDY: Pelvic CT dated 11/12/2019. TECHNIQUE: Real-time, grayscale, and color flow sonography of the pelvis is performed both transabdominally and endovaginally. Images are reviewed in the transverse and longitudinal planes. The endovaginal examination is performed for better assessment of adnexa. FINDINGS: Uterus: The uterus is surgically absent. The cervix is normal as visualized. Ovaries: The left ovary is only seen transabdominally and measures 3.5 x 2.7 x 3.1 cm. A 2.9 cm follicle is noted in the left ovary. Normal Doppler waveforms are shown within the left ovary. The right ovary was not visualized due to intervening bowel loops. Pelvis: There is no free fluid in the cul-de-sac. No concerning adnexal lesion is seen. IMPRESSION: 1. No acute sonographic abnormality is identified in the pelvis. 2. The uterus is surgically absent. 3. The left ovary is normal as visualized noting a 2.9 cm dominant follicle. 4. Nonvisualization of the right ovary. ACT 112: Negative or not required by law. Electronically signed by: Jacob Choudhary M.D. 12/03/2019 9:56 PM Dictated: 12/03/192152 Transcribed: 12/03/192152 ULTRASOUND LEFT GROIN NONVASCULAR CLINICAL HISTORY: Left groin pain. COMPARISON STUDY: Pelvic CT dated 11/12/2019. FINDINGS: Real-time grayscale sonography of the left groin is performed to assess for inguinal hernia. There is no sonographic evidence of left inguinal hernia. No hernia could be induced by having the patient perform the Valsalva maneuver. Benign-appearing and largely fatty replaced left inguinal lymph nodes are incidentally noted. There is no inguinal adenopathy. No fluid collection is identified. IMPRESSION: There is no sonographic evidence of left inguinal hernia. Electronically signed by: Jacob Choudhary M.D. 12/03/2019 9:57 PM Dictated: 12/03/[id number] Transcribed: 12/03/192155 CT SCAN OF THE ABDOMEN AND PELVIS WITH IV CONTRAST CLINICAL HISTORY: Left groin pain. COMPARISON STUDY: Abdominal CT dated 11/12/2019. TECHNIQUE: Following the IV administration of 94 cc of Optiray 320, CT scan of the abdomen and pelvis is performed from the lung bases to the proximal femora. Images are reviewed in the axial, sagittal, and coronal planes. IV contrast was administered without complication. A dose lowering technique was utilized adhering to the principles of ALARA. CT DOSE: 1611.91 mGy.cm FINDINGS: Lung bases: The heart is normal in size and without pericardial effusion. The lung bases are clear. Liver: The contrast-enhanced liver is enlarged, measuring 22.7 cm in length. The liver demonstrates diffusely diminished attenuation consistent with severe hepatic steatosis. There is no intrahepatic biliary ductal dilatation. The hepatic veins and portal veins are patent. Gallbladder: Surgically absent noting clips in the gallbladder fossa. Spleen: Normal in size and attenuation. Pancreas: Unremarkable. Adrenal glands: Unremarkable. Kidneys: The contrast enhanced kidneys are normal in size and without hydronephrosis. The kidneys enhance symmetrically. Abdominal vasculature: The abdominal aorta is normal in course and caliber. Bowel: There is no bowel obstruction. The appendix is not identified and reported surgically absent. Peritoneum: There is no intraperitoneal free air or abdominal ascites. There is diastases of the rectus musculature with laxity of the ventral abdominal wall and a small fat-containing umbilical hernia. Lymphadenopathy: None. Pelvic viscera: The bladder is normal as visualized. The uterus is surgically absent. No adnexal lesion is identified. A 3 cm dominant follicle is noted in the left ovary. No abnormalities identified in the left groin. Skeletal structures: A large posterior disc osteophyte complex eccentric to the left is noted at L5-S1. No lytic or blastic lesions are seen. IMPRESSION: 1. There are no acute infectious or inflammatory findings in the abdomen or pelvis. 2. Hepatomegaly and severe hepatic steatosis. ACT 112: Negative or not required by law. Electronically signed by: Jacob Choudhary M.D. 12/03/2019 11:14 PM Blood Pressure Blood Pressure Findings: Elevated blood pressure Blood Pressure Disposition: Referred to patients primary care provider MDM Narrative I did evaluate the patient as noted above. The patient is presenting with pain along her left inguinal ligament. Exam is limited due to body habitus. IV access was established. I did treat the patient with morphine and Zofran IV. I did order a urine analysis. She does not have a UTI. testing is negative. I did order and review the patient's blood work as noted in the electronic medical record. Her white count is not elevated but she is anemic with a hemoglobin of 10.3. Electrolytes are unremarkable. I did order an ultrasound of the pelvis and abdomen. I did review the images myself as well as the radiology report as described above. There is no evidence of inguinal hernia or ovarian torsion or cyst. She had a dominant follicle in the left ovary. I did reassess the patient. Her blood pressure improved. She is still slightly tachycardic. She still has pain but states she has improved. Because of her drop in hemoglobin I did recommend we obtain a CT scan and she was agreeable. I did order a CT scan of the abdomen pelvis. This did not show any acute process or signs of hematoma. She does have hepatomegaly and hepatic steatosis. I did discuss the results with her. She states she knows about her liver and it has been that way for a long time. Initially the plan was to discharge her home to follow-up with her doctor in 2 days. She has an appointment at 8:45 in the morning. Unfortunately the patient had significant pain with movement of the leg and was unable to walk. She was therefore hospitalized for further care and evaluation. I did discuss the case with the hospitalist and case resource manager. Impression & Plan Left groin pain, Anemia, Ambulatory dysfunction Discharge Plan Visit Data Chief Complaint: Groin Pain Stated Complaint: LEFT GROIN PAIN ED Provider: Fausto Montenegro Discharge Problem: Left groin pain, Anemia, Ambulatory dysfunction Discharge Instructions Krames/Other Patient Handouts: Abdominal Pain Activity Restrictions/Additional Instructions: You have been examined and treated today on an emergency basis only. This is not a substitute for, or an effort to provide, complete comprehensive medical care. It is impossible to recognize and treat all injuries or illnesses in a single emergency department visit. It is therefore important that you follow up closely with your physician. Call as soon as possible for an appointment. Return for worsening symptoms or if you develop fever, vomiting, or any other concerning symptoms. Forms Stand Alone Forms: My [facility] Radio NEXT Prescriptions Prescriptions: No Action ipratropium-albuterol 0.5 mg-3 mg(2.5 mg base)/3 mL solution for nebulization 3 ml INH QID PRN (Reason: wheezing) Qty: 3 RF: 0 (DME) OneTouch Verio test strips Strip See Rx Instructions .ROUTE .MEDSUPPLY Qty: 10 RF: 0 montelukast 10 mg tablet 10 mg PO HS RF: 0 cetirizine 10 mg tablet 10 mg PO HS RF: 0 meloxicam 15 mg tablet 15 mg PO QAM RF: 0 methocarbamol 750 mg tablet 750 mg PO TID RF: 0 metoprolol succinate 200 mg tablet extended release 24 hr 200 mg PO QAM RF: 0 esomeprazole magnesium 40 mg capsule,delayed release(DR/EC) 40 mg PO BID RF: 0 losartan 100 mg tablet 100 mg PO QAM RF: 0 doxepin 150 mg capsule 300 mg PO HS RF: 0 buspirone 15 mg tablet 15 mg PO BID RF: 0 bupropion HCl 300 mg tablet extended release 24 hr 300 mg PO QAM RF: 0 bupropion HCl 150 mg tablet extended release 24 hr 150 mg PO QAM RF: 0 sumatriptan succinate 100 mg tablet 10 mg PO DIRECTED PRN (Reason: Migraine Headache) RF: 0 ondansetron 4 mg tablet,disintegrating 4 mg PO Q8H PRN (Reason: Nausea) RF: 0 clonazepam 1 mg tablet 1 mg PO TID RF: 0 levothyroxine 200 mcg Tablet 200 mcg PO QAM RF: 0 pregabalin [Lyrica] 300 mg Capsule 300 mg PO BID RF: 0 albuterol sulfate [Proventil HFA] 90 mcg/actuation HFA aerosol inhaler 1 puffs INH QID PRN (Reason: SHORT OF BREATH) RF: 0 Lantus U-100 Insulin 100 unit/mL Solution 15 unit SUBCUT QAM RF: 0 insulin aspart U-100 [Novolog U-100 Insulin aspart] 100 unit/mL Solution 5 unit SUBCUT USEASDIRECTD RF: 0 Ozempic 0.25 mg or 0.5 mg(2 mg/1.5 mL) Pen Injector 0.5 mg SUBCUT WK RF: 0 furosemide [Lasix] 40 mg Tablet 40 mg PO QAM RF: 0 atorvastatin [Lipitor] 10 mg Tablet 10 mg PO QAM RF: 0 solifenacin [Vesicare] 10 mg tablet 10 mg PO QAM RF: 0 Referrals Referrals: Daquan Alcazar MD [Primary Care Provider] - Discharge Problem: Anemia Qualifiers: Anemia type: unspecified type Qualified Code(s): D64.9 - Anemia, unspecified
[2019-12-03 20:57] LABS: Appearance Urine Clear (Clear); Bilirubin Urine Negative (Negative); Blood Urine Negative (Negative); Color Urine Yellow; Glucose Urine UA Negative (Negative); Ketones Urine Negative (Negative); Leukocyte Esterase Urine Negative (Negative); Nitrite Urine Negative (Negative); Protein Urine Negative (Negative); Specific Gravity Urine 1.021 (1.000-1.030); Urobilinogen Urine Negative (Negative)
[2019-12-03 21:32] LABS: Albumin Level 3.6 gm/dl (3.4-5.0); BUN Creatinine Ratio 7.6 (10-20); Bilirubin,Total 0.2 mg/dl (0.2-1); Calcium 9.1 mg/dl (8.5-10.1); Creatinine Clr Calc Pharmacy 121.4 ml/min; Est GFR (African American) 111.6; Est GFR (Non-African American) 96.3; Globulin 3.6 gm/dl (2.5-4.0); Potassium 3.6 mmol/L (3.5-5.1); Total Protein 7.2 gm/dl (6.4-8.2)
--- NOTE | 2019-12-03 21:57 | Ultrasound Report ---
ULTRASOUND OF THE PELVIS CLINICAL HISTORY: Left pelvic pain. COMPARISON STUDY: Pelvic CT dated 11/12/2019. TECHNIQUE: Real-time, grayscale, and color flow sonography of the pelvis is performed both transabdom inally and endovaginally. Images are reviewed in the transverse and longitudinal planes. The endovagi nal examination is performed for better assessment of adnexa. FINDINGS: Uterus: The uterus is surgically absent. The cervix is normal as visualized. Ovaries: The left ovary is only seen transabdominally and measures 3.5 x 2.7 x 3.1 cm. A 2.9 cm folli adriano is noted in the left ovary. Normal Doppler waveforms are shown within the left ovary. The right o vary was not visualized due to intervening bowel loops. Pelvis: There is no free fluid in the cul-de-sac. No concerning adnexal lesion is seen. IMPRESSION: 1. No acute sonographic abnormality is identified in the pelvis. 2. The uterus is surgically absent. 3. The left ovary is normal as visualized noting a 2.9 cm dominant follicle. 4. Nonvisualization of the right ovary. ACT 112: Negative or not required by law. Electronically signed by: Jacob Choudhary M.D. 12/03/2019 9:56 PM
--- NOTE | 2019-12-03 21:58 | Ultrasound Report ---
ULTRASOUND LEFT GROIN NONVASCULAR CLINICAL HISTORY: Left groin pain. COMPARISON STUDY: Pelvic CT dated 11/12/2019. FINDINGS: Real-time grayscale sonography of the left groin is performed to assess for inguinal hernia . There is no sonographic evidence of left inguinal hernia. No hernia could be induced by having the patient perform the Valsalva maneuver. Benign-appearing and largely fatty replaced left inguinal lymp h nodes are incidentally noted. There is no inguinal adenopathy. No fluid collection is identified. IMPRESSION: There is no sonographic evidence of left inguinal hernia. Electronically signed by: Jacob Choudhary M.D. 12/03/2019 9:57 PM
[2019-12-03 22:44] LABS: Basophils # (auto) 0.03 K/uL (0-0.2); Basophils % (auto) 0.4 %; Eosinophils # (auto) 0.18 K/uL (0-0.5); Eosinophils % (auto) 2.1 %; Hemoglobin 10.3 g/dL (12.0-16.0); Immature Granulocytes # (auto) 0.04 K/uL (0.00-0.02); Immature Granulocytes % (auto) 0.5 %; Lymphocytes # (auto) 2.44 K/uL (1.2-3.4); Lymphocytes % (auto) 28.8 %; Mean Corpuscular Hemoglobin 28.8 pg (25-34); Mean Corpuscular Hgb Conc 33.2 g/dL (32-36); Mean Corpuscular Volume 86.6 fL (80-100); Mean Platelet Volume 9.7 fL (7.4-10.4); Monocytes # (auto) 0.62 K/uL (0.11-0.59); Monocytes % (auto) 7.3 %; Neutrophils # (auto) 5.15 K/uL (1.4-6.5); Neutrophils % (auto) 60.9 %; Platelet Count 220 K/uL (130-400); RDW Coefficient of Variation 12.3 % (11.5-14.5); RDW Standard Deviation 39.2 fL (36.4-46.3); Red Blood Count 3.58 M/uL (4.2-5.4); White Blood Count 8.46 K/uL (4.8-10.8)
[2019-12-03] MEDS ORDERED: IOVERSOL 100ml IV ONE (23:05)
--- NOTE | 2019-12-03 23:15 | CT Scan Report ---
CT SCAN OF THE ABDOMEN AND PELVIS WITH IV CONTRAST CLINICAL HISTORY: Left groin pain. COMPARISON STUDY: Abdominal CT dated 11/12/2019. TECHNIQUE: Following the IV administration of 94 cc of Optiray 320, CT scan of the abdomen and pelvi s is performed from the lung bases to the proximal femora. Images are reviewed in the axial, sagittal , and coronal planes. IV contrast was administered without complication. A dose lowering technique wa s utilized adhering to the principles of ALARA. CT DOSE: 1611.91 mGy.cm FINDINGS: Lung bases: The heart is normal in size and without pericardial effusion. The lung bases are clear. Liver: The contrast-enhanced liver is enlarged, measuring 22.7 cm in length. The liver demonstrates d iffusely diminished attenuation consistent with severe hepatic steatosis. There is no intrahepatic bi liary ductal dilatation. The hepatic veins and portal veins are patent. Gallbladder: Surgically absent noting clips in the gallbladder fossa. Spleen: Normal in size and attenuation. Pancreas: Unremarkable. Adrenal glands: Unremarkable. Kidneys: The contrast enhanced kidneys are normal in size and without hydronephrosis. The kidneys enh ance symmetrically. Abdominal vasculature: The abdominal aorta is normal in course and caliber. Bowel: There is no bowel obstruction. The appendix is not identified and reported surgically absent. Peritoneum: There is no intraperitoneal free air or abdominal ascites. There is diastases of the rect us musculature with laxity of the ventral abdominal wall and a small fat-containing umbilical hernia. Lymphadenopathy: None. Pelvic viscera: The bladder is normal as visualized. The uterus is surgically absent. No adnexal lesi on is identified. A 3 cm dominant follicle is noted in the left ovary. No abnormalities identified in the left groin. Skeletal structures: A large posterior disc osteophyte complex eccentric to the left is noted at L5-S 1. No lytic or blastic lesions are seen. IMPRESSION: 1. There are no acute infectious or inflammatory findings in the abdomen or pelvis. 2. Hepatomegaly and severe hepatic steatosis. ACT 112: Negative or not required by law. Electronically signed by: Jacob Choudhary M.D. 12/03/2019 11:14 PM
[2019-12-03] MEDS ORDERED: OXYCODONE IR HOME PACK PO ONE (23:24)
[2019-12-03] MEDS ORDERED: OXYCODONE HCL IR 5 MG TAB (IMMEDIATE RELEASE) PO STA (23:24)
[2019-12-04] MEDS ORDERED: POLYETHYLENE (MIRALAX) 17 GM PACK PO PRN (01:04)
[2019-12-04] MEDS ORDERED: ONDANSETRON INJ 2 MG/ML 2 ML VIAL IV PRN (01:04)
[2019-12-04] MEDS ORDERED: ALBUTEROL HFA 8 GM INHALER INH PRN (01:04)
[2019-12-04] MEDS ORDERED: SUMAtriptan succinate 100 MG TAB PO PRN (01:04)
[2019-12-04] MEDS ORDERED: ACETAMINOPHEN 325 MG TAB PO PRN (01:04)
[2019-12-04] MEDS ORDERED: ALBUT/IPRATROP 3MG/0.5MG NEB 3 ML VIAL INH PRN (01:04)
[2019-12-04] MEDS: HYDROmorphone INJ 0.5 MG/0.5 ML SYR IV PRN ×4 (01:38→21:17)
--- NOTE | 2019-12-04 02:22 | History and Physical Report ---
DATE OF ADMISSION: 12/04/2019 CHIEF COMPLAINT: Left groin pain. HISTORY OF PRESENT ILLNESS: A 34-year-old female with past medical history significant for type 2 diabetes, hypothyroidism, hyperlipidemia, asthma, moderate persistent, obstructive sleep apnea, hypertension, obesity, GERD, stress urinary incontinence, urge incontinence of urine, degenerative disc disease, lumbar, migraine variant, major depression, agoraphobia with panic disorder, PTSD, generalized anxiety disorder, mixed obsessional thoughts, claustrophobia presents with left groin pain. The pain started about a couple of days ago it progressively got worse, now today she could not even put her weight on the leg and she is having ambulatory dysfunction because of severe pain that is the reason she came to the ER. Denies any injury or any sprain, no heavy lifting,pain came on its own. In the ER even after giving morphine and oxycodone, she still has significant pain and imaging studies were unremarkable in the ER. Labs showed unremarkable except for hemoglobin dropped from recently 12.2 to 10.3. The patient denies any blood in the stools or black stools. No hematuria. Otherwise, she is doing okay. Denies any headache, no blurred vision, no earache. No dizziness, no runny nose, no sore throat, no cough, no chest pain or shortness of breath. No fever, no chills, no nausea, no abdominal pain. Normal bowel and bladder movements. No rash seen. ALLERGIES: ABILIFY, EGGS, VINEGAR, BENZOYL PEROXIDE, CEPHALOSPORIN, NICKEL, PENICILLINS, PERMETHRIN, PHENERGAN. PAST MEDICAL HISTORY: As mentioned above. PAST SURGICAL HISTORY: , colonoscopy, EGDs, left shoulder joint exploration, laparoscopically cholecystectomy, ligation of oviducts, lumbosacral epidural shots, nasal sinus endoscopy, appendectomy, tonsillectomy and adenoidectomy, repair of nasal septum, total hysterectomy. MEDICATIONS: The patient is on albuterol 1 puff inhalation q.i.d. p.r.n., atorvastatin 10 mg p.o. a.m., bupropion 300 mg p.o. a.m., bupropion 150 mg p.o. a.m., buspirone 15 mg p.o. b.i.d., cetirizine 10 mg at bedtime, Klonopin 0.5 mg p.o. t.i.d., doxepin 300 mg at bedtime, esomeprazole 40 mg p.o. b.i.d., Lasix 40 mg p.o. a.m., insulin sliding scale, DuoNebs q.i.d. p.r.n., Lantus 15 units subcutaneous a.m., levothyroxine 200 mcg a.m., losartan 100 mg p.o. a.m., Meloxicam 50 mg p.o. a.m., methocarbamol 750 mg p.o. t.i.d., montelukast 10 mg at bedtime, Zofran 4 mg q. 8 hours p.r.n., Ozempic 0.5 mg subcutaneous weekly, Lyrica 300 mg p.o. b.i.d., VESIcare 10 mg p.o. q.a.m., sumatriptan 10 mg p.r.n. FAMILY HISTORY: Significant for brother has alcoholism, another brother has Wilms tumor. Mother has alcoholism, lung disorder, mental disorder. Father had cancer, diabetes. SOCIAL HISTORY: . No smoking, no alcohol, no drug use. REVIEW OF SYMPTOMS: As per HPI. Rest of review of symptoms negative. PHYSICAL EXAMINATION: GENERAL: The patient is morbidly obese, currently not in acute distress. VITAL SIGNS: Temperature 37, pulse 101, respiratory rate 20, blood pressure 163/106, oxygen 98% on room air. HEENT: Pupils equal, round, and reactive to light. NECK: No neck masses seen, supple. CARDIOVASCULAR: S1, S2 heard, regular rate and rhythm, no murmur, no gallop. RESPIRATORY SYSTEM: Normal AP diameter. No accessory muscle use. No wheezing, no crackles. ABDOMEN: Soft, bowel sounds present, no distention. Left groin tenderness present, no erythema or drainage seen. CENTRAL NERVOUS SYSTEM: Cranial nerves II-XII grossly intact. Nonfocal. EXTREMITIES: No edema, no erythema. LABORATORY DATA: WBC 8.4, hemoglobin 10.3, hematocrit 31, platelets 220. Sodium 139, potassium 3.6, chloride 104, bicarbonate 27, BUN 6, creatinine 0.7, serum glucose 124, calcium 9.1, total bilirubin 0.2, AST 43, ALT 56, alkaline phosphatase 127, lipase 103. Urinalysis negative. Urine test negative. IMAGING: CT of the abdomen and pelvis with IV contrast, no infectious or inflammatory findings in the abdomen or pelvis, hepatomegaly and severe hepatic steatosis. Pelvic ultrasound, no acute sonographic evidence of abnormality identified in the pelvis. The uterus is surgically absent. Left ovary was normal as visualized noting a 3 cm dominant follicle, nonvisualization of the right ovary. Abdominal ultrasound of the left groin, no sonographic evidence of left inguinal hernia. ASSESSMENT AND PLAN: 1. A 34-year-old female who presents with left groin pain, left flank pain, etiology unclear. No history of signs of injury. All the imaging studies are unremarkable. We will observe in medical floor, pain control, PT/OT when stable. If not improving, will consider pain management consult. 2. Anemia. Hemoglobin 10.3, hemoglobin few days back was 12.2. No obvious signs of bleeding. We will check the stool for Hemoccult. We will check vitamin B12, folate levels. 3. History of sleep apnea, seems to be noncompliant. 4. History of asthma. Continue home inhalers and nebs. 5. Type 2 diabetes. Continue Lantus insulin sliding scale. Follow blood sugars. 6. Hypothyroidism. Continue Synthroid. 7. History of depression, anxiety disorder, PTSD, agoraphobia with panic disorder, mixed obsessional thoughts. Continue her home Wellbutrin and Klonopin, doxepin and buspirone. 8. Hyperlipidemia. Continue statin. 9. Gastroesophageal reflux disease. Continue esomeprazole. 10. High blood pressure. Continue losartan and Toprol-XL. We will monitor the blood pressure. 11. History of degenerative disc disease. Continue methocarbamol and Meloxicam. 12. Urinary incontinence. Continue VESIcare. 13. Morbid obesity, needs counseling. 14. Deep venous thrombosis prophylaxis, sequential compression devices for now. 15. Disposition: Observation in medical floor. PT and OT prior to discharge. Social service to help with discharge planning. SHILPI
[2019-12-04] MEDS: LEVOTHYROXINE SODIUM 200 MCG TABLET PO SCH (05:59)
[2019-12-04 07:18] LABS: Basophils # (auto) 0.02 K/uL (0-0.2); Basophils % (auto) 0.3 %; Eosinophils # (auto) 0.13 K/uL (0-0.5); Eosinophils % (auto) 2.1 %; Hematocrit (blood only) 35.7 % (37-47); Immature Granulocytes # (auto) 0.01 K/uL (0.00-0.02); Immature Granulocytes % (auto) 0.2 %; Lymphocytes # (auto) 1.93 K/uL (1.2-3.4); Lymphocytes % (auto) 31.7 %; Mean Corpuscular Hemoglobin 29.6 pg (25-34); Mean Corpuscular Hgb Conc 33.6 g/dL (32-36); Mean Corpuscular Volume 88.1 fL (80-100); Mean Platelet Volume 9.2 fL (7.4-10.4); Monocytes # (auto) 0.47 K/uL (0.11-0.59); Monocytes % (auto) 7.7 %; Neutrophils # (auto) 3.52 K/uL (1.4-6.5); Platelet Count 161 K/uL (130-400); RDW Coefficient of Variation 12.6 % (11.5-14.5); RDW Standard Deviation 40.6 fL (36.4-46.3); Red Blood Count 4.05 M/uL (4.2-5.4); White Blood Count 6.08 K/uL (4.8-10.8)
[2019-12-04] MEDS: OXYCODONE HCL IR 5 MG TAB (IMMEDIATE RELEASE) PO PRN (07:43)
[2019-12-04 07:44] LABS: BUN Creatinine Ratio 9.1 (10-20); Calcium 9.2 mg/dl (8.5-10.1); Creatinine Clr Calc Pharmacy 146.1 ml/min; Est GFR (African American) 130.4; Est GFR (Non-African American) 112.5; Magnesium 1.9 mg/dl (1.8-2.4); Potassium 3.5 mmol/L (3.5-5.1)
[2019-12-04] MEDS: VESICARE~ORDER AWAITING ACTION SCH ×2 (09:02→15:37)
[2019-12-04] MEDS: BuPROPion XL 150 MG TABCR PO SCH (09:04)
[2019-12-04] MEDS: clonazePAM 1 MG TAB PO SCH ×3 (09:04→21:12)
[2019-12-04] MEDS: METOPROLOL SUCC 50MG EXT REL TAB PO SCH (09:04)
[2019-12-04] MEDS: FLUTICASONE/VILANTEROL 100/25MCG 14 PUFFS/INHALER INH SCH (09:04)
[2019-12-04] MEDS: PREGABALIN 150 MG CAP PO SCH ×2 (09:04→21:12)
[2019-12-04] MEDS: METHOCARBAMOL 750 MG TABLET PO SCH ×3 (09:04→21:12)
[2019-12-04] MEDS: ATORVASTATIN 10 MG TAB PO SCH (09:05)
[2019-12-04] MEDS: BuPROPion XL 300 MG TABCR PO SCH (09:05)
[2019-12-04] MEDS: MELOXICAM 7.5 MG TAB PO SCH (09:05)
[2019-12-04] MEDS: FUROSEMIDE 40 MG TAB PO SCH (09:05)
[2019-12-04] MEDS: PANTOprazole 40 MG TAB PO SCH ×2 (09:05→21:13)
[2019-12-04] MEDS: LOSARTAN POTASSIUM 50 MG TAB PO SCH (09:05)
[2019-12-04] MEDS: BusPIRone 15 MG TAB PO SCH ×2 (09:05→21:12)
[2019-12-04] MEDS: INSULIN GLARGINE SOLOSTAR 100 UNITS/ML 3 ML PEN SC SCH (09:12)
[2019-12-04] MEDS: INSULIN ASPART 100 UNITS/ML 3 ML PEN SC SCH ×4 (09:13→21:49)
--- NOTE | 2019-12-04 11:15 | CT Scan Report ---
LEFT HIP CT CT DOSE: 766.93 mGy.cm HISTORY: Left hip pain. r/o fracture/necrosis TECHNIQUE: Multiaxial CT images of the left hip were performed and reformatted in the sagittal and co irma plane without the use of contrast. A dose lowering technique was utilized adhering to the prin ciples of JEREMY. COMPARISON: Abdomen and pelvis CT 12/03/2019. FINDINGS: No fracture or dislocation within the left hip. The visualized pelvic bones are intact. No evidence for avascular necrosis within the femoral head. Cartilage spaces are maintained for age. No hip effusion identified. Soft tissues are within normal limits. IMPRESSION: No fracture or dislocation within the left hip. No evidence for avascular necrosis within the femoral head. ACT 112: Negative or not required by law. Electronically signed by: Bryon Mayfield M.D. 12/04/2019 11:14 AM
--- NOTE | 2019-12-04 11:22 | Communication Note ---
Date of Service: December 04, 2019 She is a 34 years old obese female with significant past medical history as mentioned in H&P was admitted early this morning with severe acute pain invo lving the left groin The pain has been going on for the last few days and she is almost bedbound due to severe pain and has been having problems with ambulation Upon investigation including CT of the abdomen and pelvis, ultrasound of the pelvis came out to be unremarkable On examination She is tender around the mid inguinal ligament without any obvious lump and movements of the left hip produce pain in every direction Advised CT of the left hip to rule out any significant problem with hip joint Will get a pain therapy consult Will have regular follow-up tomorrow Dr Ze Son
[2019-12-04 11:41] LABS: Folate (Folic Acid) 11.2 ng/ml (>5.38)
[2019-12-04] MEDS: DOXEPIN HCL 75 MG CAPSULE PO SCH (21:12)
[2019-12-04] MEDS: MONTELUKAST SODIUM 10 MG TABLET PO SCH (21:13)
[2019-12-04] MEDS: CETIRIZINE HCL 10 MG TABLET PO SCH (21:13)
[2019-12-05] MEDS: LEVOTHYROXINE SODIUM 200 MCG TABLET PO SCH (05:42)
[2019-12-05] MEDS: HYDROmorphone INJ 0.5 MG/0.5 ML SYR IV PRN (05:48)
[2019-12-05 06:14] LABS: Estimated Average Glucose 128 mg/dl; Hemoglobin A1C 6.1 % (4.5-5.6)
[2019-12-05] MEDS: FLUTICASONE/VILANTEROL 100/25MCG 14 PUFFS/INHALER INH SCH (08:16)
[2019-12-05] MEDS: BuPROPion XL 300 MG TABCR PO SCH (08:17)
[2019-12-05] MEDS: PANTOprazole 40 MG TAB PO SCH ×2 (08:17→20:34)
[2019-12-05] MEDS: MELOXICAM 7.5 MG TAB PO SCH (08:17)
[2019-12-05] MEDS: ATORVASTATIN 10 MG TAB PO SCH (08:17)
[2019-12-05] MEDS: BusPIRone 15 MG TAB PO SCH ×2 (08:18→20:31)
[2019-12-05] MEDS: SOLIFENACIN SUCCINATE PO SCH (08:18)
[2019-12-05] MEDS: BuPROPion XL 150 MG TABCR PO SCH (08:19)
[2019-12-05] MEDS: PREGABALIN 150 MG CAP PO SCH ×2 (08:21→20:30)
[2019-12-05] MEDS: clonazePAM 1 MG TAB PO SCH ×3 (08:21→20:30)
[2019-12-05] MEDS: METHOCARBAMOL 750 MG TABLET PO SCH ×3 (08:22→20:34)
[2019-12-05] MEDS: METOPROLOL SUCC 50MG EXT REL TAB PO SCH (08:25)
[2019-12-05] MEDS: FUROSEMIDE 40 MG TAB PO SCH (08:25)
[2019-12-05] MEDS: INSULIN ASPART 100 UNITS/ML 3 ML PEN SC SCH ×4 (08:26→20:38)
[2019-12-05] MEDS: INSULIN GLARGINE SOLOSTAR 100 UNITS/ML 3 ML PEN SC SCH (08:27)
[2019-12-05] MEDS ORDERED: methylPREDNISolone 4 MG TAB, 6 DAY TAPER PO SCH (08:45)
[2019-12-05] MEDS: LOSARTAN POTASSIUM 50 MG TAB PO SCH (09:29)
--- NOTE | 2019-12-05 11:40 | Pain Management Consultation ---
Date of Consultation December 05, 2019 Assessment & Plan (1) Left groin pain: 1. 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 She was offered a nerve block to address both nerves today which she defers and wishes instead for a course of oral steroids. She understands that she may require additional insulin in the interim while she is on a Medrol Dosepak. Orders are written. 2. Recommend formally assessing her L5-S1 disc with an MRI after course of physical therapy should she fail to improve as an outpatient. 3. Consider increasing Lyrica in the interim for augmentation of pain relief. 4. Consider weight loss reduction in the future to minimize risk of compressive neuropathy of ilioinguinal and genitofemoral nerves moving forward. 5. Thank you for this consultation please call with any questions. (2) Ambulatory dysfunction: (3) PTSD (post-traumatic stress disorder): (4) T2DM (type 2 diabetes mellitus): (5) Lumbar back pain: (6) Lumbar degenerative disc disease: (7) Morbid obesity: (8) Depression with anxiety: History of Present Illness Attending Physician: Kalina Son MD History of Present Illness 34-year-old female with acute onset of left-sided pain starting at the lateral margin of the hip radiating to the groin starting on 12/01/2019 without acute injury. She states since the pain started she has been having difficulty ambulating due to left-sided pain and perceived weakness. She reports she has previously had lumbar radicular symptoms and had epidural steroid injections performed in the distant past but this pain is different than her prior pain. Pain is characterized as a sharp shooting radiating into her left groin and pubic region. Oxycodone has been minimally effective in diminishing her pain. She continues on methocarbamol, bupropion and pregabalin at her home doses. She denies any bowel or bladder incontinence, footdrop, fever, chills, and or night sweats at this time. She denies any axial low back pain at this time. Allergies Allergy/AdvReac Type Severity Reaction Status Date / Time aripiprazole [From Abilify] Allergy Severe SWELLING Verified 12/03/19 20:25 OF LIPS bee venom protein (honey bee) Allergy Severe ANAPHYLAXIS Verified 12/03/19 20:25 Egg Derived Allergy Severe EDEMA-ALLERGY Verified 12/03/19 20:25 TO FLU SHOT Penicillins Allergy Severe QUIT Verified 12/03/19 20:25 BREATHING/SWELLING latex Allergy Intermediate HIVES,SOB Verified 12/03/19 20:25 benzoyl peroxide Allergy Mild RASH Verified 12/03/19 20:25 permethrin Allergy Mild RASH Verified 12/03/19 20:25 Cephalosporins Allergy Unknown Unknown Verified 12/03/19 20:25 nickel Allergy Unknown Rash Verified 12/03/19 20:25 promethazine AdvReac Mild VOMITING Verified 12/03/19 20:25 Vinegar Allergy Severe EDEMA OF Uncoded 12/03/19 20:25 FACE, LIPS, TONGUE Home Medications Home Medications Medication Instructions Recorded Confirmed Type cetirizine 10 mg PO HS 07/15/18 12/03/19 History meloxicam 15 mg PO QAM 07/15/18 12/03/19 History methocarbamol 750 mg PO TID 07/15/18 12/03/19 History montelukast 10 mg PO HS 07/15/18 12/03/19 History bupropion HCl 150 mg PO QAM 01/27/19 12/03/19 History bupropion HCl 300 mg PO QAM 01/27/19 12/03/19 History buspirone 15 mg PO BID 01/27/19 12/03/19 History clonazepam 1 mg PO TID 01/27/19 12/03/19 History doxepin 300 mg PO HS 01/27/19 12/03/19 History esomeprazole magnesium 40 mg PO BID 01/27/19 12/03/19 History losartan 100 mg PO QAM 01/27/19 12/03/19 History metoprolol succinate 200 mg PO QAM 01/27/19 12/03/19 History ondansetron 4 mg PO Q8H PRN 01/27/19 12/03/19 History sumatriptan succinate 10 mg PO DIRECTED PRN 01/27/19 12/03/19 History blood sugar diagnostic #10 ea 05/06/19 09/07/19 History ipratropium 0.5 mg-albuterol 3 mg 3 ml INH QID PRN #3 ml 02/21/20 09/19/20 Rx (2.5 mg base)/3 mL nebulization soln Lantus U-100 Insulin 15 unit SUBCUT QAM 08/19/19 12/03/19 History Ozempic 0.5 mg SUBCUT WK 08/19/19 12/03/19 History albuterol sulfate [Proventil HFA] 1 puffs INH QID PRN 08/19/19 12/03/19 History atorvastatin [Lipitor] 10 mg PO QAM 08/19/19 12/03/19 History furosemide [Lasix] 40 mg PO QAM 08/19/19 12/03/19 History insulin aspart U-100 [Novolog 5 unit SUBCUT USEASDIRECTD 08/19/19 12/03/19 History U-100 Insulin aspart] levothyroxine 200 mcg PO QAM 08/19/19 12/03/19 History pregabalin [Lyrica] 300 mg PO BID 08/19/19 12/03/19 History solifenacin [Vesicare] 10 mg PO QAM 09/05/19 12/03/19 History Pain History Pain Location Full Body Front + Back: 1. Pain Intensity [facility] Combined Pain Scale: 7-Severe - Pain prevents productive activity. Impossible to tolerate. Patient History Medical History Agoraphobia with panic attacks Anxiety and depression Asthma Using pro air in the mornings Chronic diarrhea Degenerative disc disease 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 Diabetes mellitus, type 2 Enlarged liver GERD (gastroesophageal reflux disease) Hyperlipidemia Hypertension Hypothyroidism Migraine Palpitations on BB for this Sleep apnea CPAP DEVICE Stress incontinence Uterine mass Surgical History History of adenoidectomy History of appendectomy History of section X 3 History of cholecystectomy History of colonoscopy History of dilatation and curettage History of endoscopic sinus surgery History of esophagogastroduodenoscopy (EGD) History of tonsillectomy and adenoidectomy History of tooth extraction History of tubal ligation Nausea and vomiting after administration of anesthetic agent MIGRAINE HEADACHE-POST OP EGD/COLONOSCOPY 08/2019 Family History Other Past medical history not known due to adoption Social History Smoking Status: Never smoker Second Hand Exposure: No; Hx Alcohol Use: Yes Alcohol type: wine Hx Substance Use: No Preferred Language: [place] Communication Ability: Effective Visual Impairment: No Limitations Hearing Ability: Use of Hearing Aid Criminal Justice Teacher Required: No Beliefs That Will Affect Care: None marital status: Current Living Situation: Spouse and Family current occupational status: employed current occupation: homemaker Feels Safe at Home: Yes Safety Concerns: Feels Safe At This Time Childhood Exposure to Second-Hand Smoke: Yes caffeine: Yes (coffee) during the past year weight has: other Dental Care, Regularly: No Physical Activity Frequency: Does not Exercise Seatbelt Use: always Sunscreen Use: No Assistive Devices: Walker Physical Exam Physical Exam: Constitutional: Well-developed, well-nourished, morbidly obese and deconditioned Psych: Awake, alert, and oriented 3 with normal affect and mood. Recent memory appears grossly intact Eyes: Pupils are equally round and reactive to light with normal size pupils, eyelids appear normal Ear, nose, mouth, and throat: Moist nasal and oral membranes, lips and tongues appear normal, no external ear abnormalities are noted Neck: The trachea is midline without deviation and no thyromegaly is noted Respiratory: Normal respiratory effort without distress, no audible wheezes or rhonchi CV: Normal S1 and S2 Chest: Deferred GI/abdomen: Protuberant, soft. Patient is exquisitely tender over the left ilioinguinal nerve and genitofemoral nerve with recreation of pain. Musculoskeletal: Head is normocephalic and atraumatic, gait not observed Cervical: Lordotic curve: Normal Range of motion is normal with extension, flexion, side-bending, rotation Strength: Strength is grossly equal bilaterally with 5 out of 5 strength in all planes Lumbar: Lordotic curve: Loss of lumbar lordosis Range of motion is decreased in all planes secondary to body habitus Tenderness: Nontender over the axial midline Straight leg raise: Negative on the right marginally positive on the left (only with Achilles stretch) Step-off injuries: None Strength: Strength is equal on the right with 5 out of 5 strength in all planes, on the left she has 5-5 strength weeks the exception of anterior tibialis rated at 4+ out of 5 Sensation of lower extremities: Intact bilaterally Deep tendon reflexes: Rated at 2+ in bilateral L4 and S1 Myofascial spasm: No appreciable spasm. No discrete trigger points noted Greater trochanters: Nontender bilaterally Sacroiliac joints: Nontender bilaterally Pathologic reflexes noted: None Skin: No rashes, lesions, ulcers, or induration noted Neuro: No nystagmus noted, the tongue is midline, the patient is able to rotate their head bilaterally : Deferred Results (Pain Clinic) Diagnostic Review CT: enhanced, images reviewed and findings discussed with patient CT Findings: 12/03/19 CT SCAN OF THE ABDOMEN AND PELVIS WITH IV CONTRAST CLINICAL HISTORY: Left groin pain. COMPARISON STUDY: Abdominal CT dated 11/12/2019. TECHNIQUE: Following the IV administration of 94 cc of Optiray 320, CT scan of the abdomen and pelvis is performed from the lung bases to the proximal femora. Images are reviewed in the axial, sagittal, and coronal planes. IV contrast was administered without complication. A dose lowering technique was utilized adher ing to the principles of ALARA. CT DOSE: 1611.91 mGy.cm FINDINGS: Lung bases: The heart is normal in size and without pericardial effusion. The lung bases are clear. Liver: The contrast-enhanced liver is enlarged, measuring 22.7 cm in length. The liver demonstrates diffusely diminished attenuation consistent with severe hepatic steatosis. There is no intrahepatic biliary ductal dilatation. The hepatic veins and portal veins are patent. Gallbladder: Surgically absent noting clips in the gallbladder fossa. Spleen: Normal in size and attenuation. Pancreas: Unremarkable. Adrenal glands: Unremarkable. Kidneys: The contrast enhanced kidneys are normal in size and without hydronephrosis. The kidneys enhance symmetrically. Abdominal vasculature: The abdominal aorta is normal in course and caliber. Bowel: There is no bowel obstruction. The appendix is not identified and reported surgically absent. Peritoneum: There is no intraperitoneal free air or abdominal ascites. There is diastases of the rectus musculature with laxity of the ventral abdominal wall and a small fat-containing umbilical hernia. Lymphadenopathy: None. Pelvic viscera: The bladder is normal as visualized. The uterus is surgically absent. No adnexal lesion is identified. A 3 cm dominant follicle is noted in t he left ovary. No abnormalities identified in the left groin. Skeletal structures: A large posterior disc osteophyte complex eccentric to the left is noted at L5-S1. No lytic or blastic lesions are seen. IMPRESSION: 1. There are no acute infectious or inflammatory findings in the abdomen or pelv is. 2. Hepatomegaly and severe hepatic steatosis 12/04/[address] No fracture or dislocation within the left hip. No evidence for avascular necrosis within the femoral head. Other Findings: 12/03/19 ULTRASOUND OF THE PELVIS CLINICAL HISTORY: Left pelvic pain. COMPARISON STUDY: Pelvic CT dated 11/12/2019. TECHNIQUE: Real-time, grayscale, and color flow sonography of the pelvis is performed both transabdominally and endovaginally. Images are reviewed in the transverse and longitudinal planes. The endovaginal examination is performed for better assessment of adnexa. FINDINGS: Uterus: The uterus is surgically absent. The cervix is normal as visualized. Ovaries: The left ovary is only seen transabdominally and measures 3.5 x 2.7 x 3.1 cm. A 2.9 cm follicle is noted in the left ovary. Normal Doppler waveforms are shown within the left ovary. The right ovary was not visualized due to intervening bowel loops. Pelvis: There is no free fluid in the cul-de-sac. No concerning adnexal lesion is seen. IMPRESSION: 1. No acute sonographic abnormality is identified in the pelvis. 2. The uterus is surgically absent. 3. The left ovary is normal as visualized noting a 2.9 cm dominant follicle. 4. Nonvisualization of the right ovary.
[2019-12-05] MEDS: methylPREDNISolone 4 MG TAB PO SCH ×3 (12:26→20:31)
[2019-12-05] MEDS: OXYCODONE HCL IR 5 MG TAB (IMMEDIATE RELEASE) PO PRN ×2 (12:26→20:30)
--- NOTE | 2019-12-05 12:44 | Hospitalist Progress Note ---
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 Patient refused to have any local injection control pain Lyrica doses can be increased Will have outpatient MRI if current approach fails control pain PT and OT evaluation-if tolerating well will be discharged home tomorrow (2) Ambulatory dysfunction: PT and OT evaluation (3) Hypertension: Continue current meds (4) T2DM (type 2 diabetes mellitus): Blood sugar may get worse with the use of steroid (5) STEPHEN (obstructive sleep apnea): (6) PTSD (post-traumatic stress disorder): (7) Asthma: Remains stable Morbid obesity-counseling for weight reduction Degenerative disc disease Has been on methocarbamol and meloxicam We will continue Admission and Anticipated Discharge Date Admission Date: December 04, 2019 Subjective 12/05/2019 The patient was seen and examined in medical floor She is a 34 years old obese female with significant past medical history as mentioned in H&P was admitted early this morning with severe acute pain involving the left groin The pain has been going on for the last few days and she is almost bedbound due to severe pain and has been having problems with ambulation Upon investigation including CT of the abdomen and pelvis, ultrasound of the pelvis came out to be unremarkable She still complains to have a lot of pain involving the left groin She has an episode of falling due to pain and unstable left lower extremity Denies any problem with urine and bowel habit Review of Systems Review of Systems: All systems reviewed and are unremarkable except as noted below Musculoskeletal: + radicular pain (Questionable radicular pain) and + joint pain (Left hip groin) Pain in left groin which is worse with movement of the left hip joint Physical Exam Physical Exam: Lying in bed comfortably Constitutional: well developed, well nourished, + acute distress (Secondary to left inguinal pain) and + obese Eyes: PERRL, conjunctivae normal, anicteric sclerae ENMT: external ear and nose normal, oropharynx normal Neck: trachea midline, no thyromegaly Respiratory: normal respiratory effort; no respiratory distress Auscultation: lungs clear to auscultation bilaterally Cardiovascular: Rate/Rhythm: regular rate and regular rhythm Heart Sounds: no murmur Gastrointestinal (Abdomen): Inspection/Auscultation: abdomen normal to inspection and normal bowel sounds; abdomen not distended Percussion/Palpation: abdomen soft; abdomen nontender Musculoskeletal: Tender mid inguinal area without any definite lump. Movement of the left hip joint is painful in all directions Neurologic: moves all extremities; no focal motor deficits No bowel and/or bladder problems Psychiatric: A+Ox3, euthymic affect Lymphatic: no cervical or axillary lymphadenopathy Results & Data Results & Data ([facility]) Vital Signs (Past 12 Hours) Vital Signs Temp Pulse Resp BP Pulse Ox 12/05/19 08:24 129/85 12/05/19 07:26 36.4 C L 80 16 95/62 L 91 Medications Administered Current Inpatient Medications Acetaminophen (Acetaminophen 325 Mg Tab) 650 mg PO Q4H PRN PRN Reason: pain/fever Stop: 01/03/20 01:03 Albuterol (Albuterol Hfa 8 Gm Inhaler) 1 puffs INH QID PRN PRN Reason: SHORT OF BREATH Stop: 01/03/20 01:03 Albuterol (Albut/Ipratrop 3mg/0.5mg Neb 3 Ml Vial) 3 ml INH QID PRN PRN Reason: wheezing Stop: 01/03/20 01:03 Atorvastatin Calcium (Atorvastatin 10 Mg Tab) 10 mg PO QAM [facility] Stop: 01/03/20 08:59 Last Admin: 12/05/19 08:17 Dose: 10 mg Documented by: Bupropion HCl (Bupropion Xl 300 Mg Tabcr) 300 mg PO QAM [facility] Stop: 01/03/20 08:59 Last Admin: 12/05/19 08:17 Dose: 300 mg Documented by: Bupropion HCl (Bupropion Xl 150 Mg Tabcr) 150 mg PO QAM [facility] Stop: 01/03/20 08:59 Last Admin: 12/05/19 08:19 Dose: 150 mg Documented by: Buspirone HCl (Buspirone 15 Mg Tab) 15 mg PO BID [facility] Stop: 01/03/20 08:59 Last Admin: 12/05/19 08:18 Dose: 15 mg Documented by: Cetirizine HCl (Cetirizine Hcl 10 Mg Tablet) 10 mg PO HS [facility] Stop: 01/03/20 20:59 Last Admin: 12/04/19 21:13 Dose: 10 mg Documented by: Clonazepam (Clonazepam 1 Mg Tab) 1 mg PO TID [facility] Stop: 01/03/20 08:59 Last Admin: 12/05/19 12:26 Dose: 1 mg Documented by: Doxepin HCl (Doxepin Hcl 75 Mg Capsule) 300 mg PO HS [facility] Stop: 01/03/20 20:59 Last Admin: 12/04/19 21:12 Dose: 300 mg Documented by: Fluticasone/Vilanterol (Fluticasone/Vilanterol 100/25mcg 14 Puffs/Inhaler) 1 puffs INH DAILY [facility] Stop: 01/03/20 08:59 Last Admin: 12/05/19 08:16 Dose: 1 puffs Documented by: Furosemide (Furosemide 40 Mg Tab) 40 mg PO QAM [facility] Stop: 01/03/20 08:59 Last Admin: 12/05/19 08:25 Dose: 40 mg Documented by: Hydromorphone HCl (Hydromorphone Inj 0.5 Mg/0.5 Ml Syr) 0.5 mg IV Q4H PRN PRN Reason: Pain Stop: 12/18/19 01:03 Last Admin: 12/05/19 05:48 Dose: 0.5 mg Documented by: Insulin Aspart (Insulin Aspart 100 Units/Ml 3 Ml Pen) 0 units SC ACHS [facility] Stop: 01/03/20 07:29 Last Admin: 12/05/19 12:29 Dose: 4 units Documented by: Insulin Glargine (Insulin Glargine Solostar 100 Units/Ml 3 Ml Pen) 15 units SC QAM [facility] Stop: 01/03/20 08:59 Last Admin: 12/05/19 08:27 Dose: 15 units Documented by: Levothyroxine Sodium (Levothyroxine Sodium 200 Mcg Tablet) 200 mcg PO DAILYBB [facility] Stop: 01/03/20 06:29 Last Admin: 12/05/19 05:42 Dose: 200 mcg Documented by: Losartan Potassium (Losartan Potassium 50 Mg Tab) 100 mg PO QAM [facility] Stop: 01/03/20 08:59 Last Admin: 12/05/19 09:29 Dose: 100 mg Documented by: Meloxicam (Meloxicam 7.5 Mg Tab) 15 mg PO QAM [facility] Stop: 01/03/20 08:59 Last Admin: 12/05/19 08:17 Dose: 15 mg Documented by: Methocarbamol (Methocarbamol 750 Mg Tablet) 750 mg PO TID [facility] Stop: 01/03/20 08:59 Last Admin: 12/05/19 12:26 Dose: 750 mg Documented by: Methylprednisolone (Methylprednisolone 4 Mg Tab) 8 mg PO 0700,2100 [facility] Stop: 12/06/19 07:01 Methylprednisolone (Methylprednisolone 4 Mg Tab) 4 mg PO 1300,1800 [facility] Stop: 12/05/19 18:01 Last Admin: 12/05/19 12:26 Dose: 4 mg Documented by: Methylprednisolone (Methylprednisolone 4 Mg Tab) 4 mg PO 0700,1300,1800 [facility] Stop: 12/06/19 18:01 Methylprednisolone (Methylprednisolone 4 Mg Tab) 8 mg PO HS [facility] Stop: 12/06/19 21:01 Methylprednisolone (Methylprednisolone 4 Mg Tab) 4 mg PO 0700,1300,1800,2100 [facility] Stop: 12/07/19 21:01 Methylprednisolone (Methylprednisolone 4 Mg Tab) 4 mg PO 0700,1300,2100 [facility] Stop: 12/08/19 21:01 Methylprednisolone (Methylprednisolone 4 Mg Tab) 4 mg PO 0700,2100 [facility] Stop: 12/09/19 21:01 Methylprednisolone (Methylprednisolone 4 Mg Tab) 4 mg PO 0700 [facility] Stop: 12/10/19 07:01 Metoprolol Succinate (Metoprolol Succ 50mg Ext Rel Tab) 200 mg PO [facility] Stop: 01/03/20 08:59 Last Admin: 12/05/19 08:25 Dose: 200 mg Documented by: Montelukast Sodium (Montelukast Sodium 10 Mg Tablet) 10 mg PO [facility] Stop: 01/03/20 20:59 Last Admin: 12/04/19 21:13 Dose: 10 mg Documented by: Ondansetron HCl (Ondansetron Inj 2 Mg/Ml 2 Ml Vial) 4 mg IV Q6H PRN PRN Reason: Nausea Stop: 01/03/20 01:03 Last Admin: 12/04/19 17:21 Dose: 4 mg Documented by: Oxycodone HCl (Oxycodone Hcl Ir 5 Mg Tab (Immediate Release)) 5 mg PO Q6H PRN PRN Reason: Pain Stop: 12/18/19 01:03 Last Admin: 12/05/19 12:26 Dose: 5 mg Documented by: Pantoprazole Sodium (Pantoprazole 40 Mg Tab) 40 mg PO BID [facility] Stop: 01/03/20 08:59 Last Admin: 12/05/19 08:17 Dose: 40 mg Documented by: Polyethylene Glycol (Polyethylene (Miralax) 17 Gm Pack) 17 gm PO DAILY PRN PRN Reason: Constipation Stop: 01/03/20 01:03 Pregabalin (Pregabalin 150 Mg Cap) 300 mg PO BID [facility] Stop: 01/03/20 08:59 Last Admin: 12/05/19 08:21 Dose: 300 mg Documented by: Solifenacin (Solifenacin Succinate) 1 ea PO QAM [facility] Stop: 01/04/20 08:59 Last Admin: 12/05/19 08:18 Dose: 1 ea Documented by: Sumatriptan Succinate (Sumatriptan Succinate 100 Mg Tab) 10 mg PO PRN PRN PRN Reason: Migraine Headache Stop: 01/03/20 01:03
[2019-12-05] MEDS: MONTELUKAST SODIUM 10 MG TABLET PO SCH (20:33)
[2019-12-05] MEDS: CETIRIZINE HCL 10 MG TABLET PO SCH (20:34)
[2019-12-05] MEDS: DOXEPIN HCL 75 MG CAPSULE PO SCH (20:34)
[2019-12-06] MEDS: OXYCODONE HCL IR 5 MG TAB (IMMEDIATE RELEASE) PO PRN ×2 (04:09→13:43)
[2019-12-06] MEDS: LEVOTHYROXINE SODIUM 200 MCG TABLET PO SCH (04:10)
[2019-12-06] MEDS: methylPREDNISolone 4 MG TAB PO SCH ×3 (06:31→12:44)
[2019-12-06] MEDS: METHOCARBAMOL 750 MG TABLET PO SCH ×2 (07:51→13:45)
[2019-12-06] MEDS: BuPROPion XL 300 MG TABCR PO SCH (07:51)
[2019-12-06] MEDS: MELOXICAM 7.5 MG TAB PO SCH (07:51)
[2019-12-06] MEDS: ATORVASTATIN 10 MG TAB PO SCH (07:51)
[2019-12-06] MEDS: LOSARTAN POTASSIUM 50 MG TAB PO SCH (07:51)
[2019-12-06] MEDS: METOPROLOL SUCC 50MG EXT REL TAB PO SCH (07:51)
[2019-12-06] MEDS: FUROSEMIDE 40 MG TAB PO SCH (07:52)
[2019-12-06] MEDS: PANTOprazole 40 MG TAB PO SCH (07:52)
[2019-12-06] MEDS: BusPIRone 15 MG TAB PO SCH (07:52)
[2019-12-06] MEDS: FLUTICASONE/VILANTEROL 100/25MCG 14 PUFFS/INHALER INH SCH (07:52)
[2019-12-06] MEDS: BuPROPion XL 150 MG TABCR PO SCH (07:53)
[2019-12-06] MEDS: SOLIFENACIN SUCCINATE PO SCH (07:54)
[2019-12-06] MEDS: HYDROmorphone INJ 0.5 MG/0.5 ML SYR IV PRN (08:02)
[2019-12-06] MEDS: clonazePAM 1 MG TAB PO SCH ×2 (08:02→13:44)
[2019-12-06] MEDS: PREGABALIN 150 MG CAP PO SCH (08:02)
[2019-12-06] MEDS: INSULIN GLARGINE SOLOSTAR 100 UNITS/ML 3 ML PEN SC SCH (10:19)
[2019-12-06] MEDS: INSULIN ASPART 100 UNITS/ML 3 ML PEN SC SCH ×2 (10:21→12:41)
--- NOTE | 2019-12-06 12:05 | Hospitalist Progress Note ---
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 Patient refused to have any local injection control pain Lyrica doses can be increased Will have outpatient MRI if current approach fails control pain Pain seems to be reasonably controlled with as needed use of Percocet on top of other pain medications She will get Decadron as advised by pain therapist She was evaluated by physical therapist and was advised to go home with recommendations on physical activities She was strongly advised to limit the use of narcotics pain medications and take extra precaution to avoid fall. (2) Ambulatory dysfunction: PT and OT evaluation (3) Hypertension: Continue current meds (4) T2DM (type 2 diabetes mellitus): Blood sugar may get worse with the use of steroid (5) STEPHEN (obstructive sleep apnea): (6) PTSD (post-traumatic stress disorder): We will continue her current medications (7) Asthma: Remains stable Morbid obesity-counseling for weight reduction Degenerative disc disease Has been on methocarbamol and meloxicam We will continue Admission and Anticipated Discharge Date Admission Date: December 04, 2019 Subjective 12/05/2019 The patient was seen and examined in medical floor She is a 34 years old obese female with significant past medical history as mentioned in H&P was admitted early this morning with severe acute pain involving the left groin The pain has been going on for the last few days and she is almost bedbound due to severe pain and has been having problems with ambulation Upon investigation including CT of the abdomen and pelvis, ultrasound of the pelvis came out to be unremarkable She still complains to have a lot of pain involving the left groin She has an episode of falling due to pain and unstable left lower extremity Denies any problem with urine and bowel habit 12/06/2019 The patient was seen and examined in medical floor She has been feeling a lot better but still complains of pain in the left groin Denies any other symptoms She will get physical therapy evaluation and if recommended she be discharged th is afternoon Review of Systems Review of Systems: All systems reviewed and are unremarkable except as noted below Musculoskeletal: + radicular pain (Questionable radicular pain) and + joint pain (Left hip groin) Pain in left groin which is worse with movement of the left hip joint Physical Exam Physical Exam: Lying in bed comfortably Constitutional: well developed, well nourished, + acute distress (Secondary to left inguinal pain) and + obese Eyes: PERRL, conjunctivae normal, anicteric sclerae ENMT: external ear and nose normal, oropharynx normal Neck: trachea midline, no thyromegaly Respiratory: normal respiratory effort; no respiratory distress Auscultation: lungs clear to auscultation bilaterally Cardiovascular: Rate/Rhythm: regular rate and regular rhythm Heart Sounds: no murmur Gastrointestinal (Abdomen): Inspection/Auscultation: abdomen normal to inspection and normal bowel sounds; abdomen not distended Percussion/Palpation: abdomen soft; abdomen nontender Musculoskeletal: Left groin pain and left hip pain on movement of the left lower extremity. No obvious lump and/or erythema noted around left groin Neurologic: moves all extremities; no focal motor deficits Psychiatric: A+Ox3, euthymic affect Lymphatic: no cervical or axillary lymphadenopathy Results & Data Results & Data ([facility]) Vital Signs (Past 12 Hours) Vital Signs Temp Pulse Resp BP Pulse Ox 12/06/19 07:10 36.8 C 91 H 16 129/82 94 Medications Administered Current Inpatient Medications Acetaminophen (Acetaminophen 325 Mg Tab) 650 mg PO Q4H PRN PRN Reason: pain/fever Stop: 01/03/20 01:03 Albuterol (Albuterol Hfa 8 Gm Inhaler) 1 puffs INH QID PRN PRN Reason: SHORT OF BREATH Stop: 01/03/20 01:03 Albuterol (Albut/Ipratrop 3mg/0.5mg Neb 3 Ml Vial) 3 ml INH QID PRN PRN Reason: wheezing Stop: 01/03/20 01:03 Atorvastatin Calcium (Atorvastatin 10 Mg Tab) 10 mg PO QAM [facility] Stop: 01/03/20 08:59 Last Admin: 12/06/19 07:51 Dose: 10 mg Documented by: Bupropion HCl (Bupropion Xl 300 Mg Tabcr) [facility] [place] Stop: 01/03/20 08:59 Last Admin: 12/06/19 07:51 Dose: 300 mg Documented by: Bupropion HCl (Bupropion Xl 150 Mg Tabcr) 150 mg PO QAM [facility] Stop: 01/03/20 08:59 Last Admin: 12/06/19 07:53 Dose: 150 mg Documented by: Buspirone HCl (Buspirone 15 Mg Tab) 15 mg PO BID [facility] Stop: 01/03/20 08:59 Last Admin: 12/06/19 07:52 Dose: 15 mg Documented by: Cetirizine HCl (Cetirizine Hcl 10 Mg Tablet) 10 mg PO [facility] Stop: 01/03/20 20:59 Last Admin: 12/05/19 20:34 Dose: 10 mg Documented by: Clonazepam (Clonazepam 1 Mg Tab) 1 mg PO TID [facility] Stop: 01/03/20 08:59 Last Admin: 12/06/19 08:02 Dose: 1 mg Documented by: Doxepin HCl (Doxepin Hcl 75 Mg Capsule) 300 mg PO [facility] Stop: 01/03/20 20:59 Last Admin: 12/05/19 20:34 Dose: 300 mg Documented by: Fluticasone/Vilanterol (Fluticasone/Vilanterol 100/25mcg 14 Puffs/Inhaler) 1 puffs INH DAILY [facility] Stop: 01/03/20 08:59 Last Admin: 12/06/19 07:52 Dose: 1 puffs Documented by: Furosemide (Furosemide 40 Mg Tab) 40 [facility] [place] Stop: 01/03/20 08:59 Last Admin: 12/06/19 07:52 Dose: 40 mg Documented by: Hydromorphone HCl (Hydromorphone Inj 0.5 Mg/0.5 Ml Syr) 0.5 mg IV Q4H PRN PRN Reason: Pain Stop: 12/18/19 01:03 Last Admin: 12/06/19 08:02 Dose: 0.5 mg Documented by: Insulin Aspart (Insulin Aspart 100 Units/Ml 3 Ml Pen) 0 units SC [facility] Stop: 01/03/20 07:29 Last Admin: 12/06/19 10:21 Dose: 300 units Documented by: Insulin Glargine (Insulin Glargine Solostar 100 Units/Ml 3 Ml Pen) 15 units SC QAM [facility] Stop: 01/03/20 08:59 Last Admin: 12/06/19 10:19 Dose: 15 units Documented by: Levothyroxine Sodium (Levothyroxine Sodium 200 Mcg Tablet) 200 mcg PO DAILYBB [facility] Stop: 01/03/20 06:29 Last Admin: 12/06/19 04:10 Dose: 200 mcg Documented by: Losartan Potassium (Losartan Potassium 50 Mg Tab) 100 mg PO QAM [facility] Stop: 01/03/20 08:59 Last Admin: 12/06/19 07:51 Dose: 100 mg Documented by: Meloxicam (Meloxicam 7.5 Mg Tab) 15 mg PO QAM [facility] Stop: 01/03/20 08:59 Last Admin: 12/06/19 07:51 Dose: 15 mg Documented by: Methocarbamol (Methocarbamol 750 Mg Tablet) 750 mg PO TID [facility] Stop: 01/03/20 08:59 Last Admin: 12/06/19 07:51 Dose: 750 mg Documented by: Methylprednisolone (Methylprednisolone 4 Mg Tab) 4 mg PO 0700,1300,1800 [facility] Stop: 12/06/19 18:01 Last Admin: 12/06/19 06:31 Dose: 4 mg Documented by: Methylprednisolone (Methylprednisolone 4 Mg Tab) 8 mg PO HS [facility] Stop: 12/06/19 21:01 Methylprednisolone (Methylprednisolone 4 Mg Tab) 4 mg PO 0700,1300,1800,2100 [facility] Stop: 12/07/19 21:01 Methylprednisolone (Methylprednisolone 4 Mg Tab) 4 mg PO 0700,1300,2100 [facility] Stop: 12/08/19 21:01 Methylprednisolone (Methylprednisolone 4 Mg Tab) 4 mg PO 0700,2100 [facility] Stop: 12/09/19 21:01 Methylprednisolone (Methylprednisolone 4 Mg Tab) 4 mg PO 0700 [facility] Stop: 12/10/19 07:01 Metoprolol Succinate (Metoprolol Succ 50mg Ext Rel Tab) 200 mg PO QAM [facility] Stop: 01/03/20 08:59 Last Admin: 12/06/19 07:51 Dose: 200 mg Documented by: Montelukast Sodium (Montelukast Sodium 10 Mg Tablet) 10 mg PO HS [facility] Stop: 01/03/20 20:59 Last Admin: 12/05/19 20:33 Dose: 10 mg Documented by: Ondansetron HCl (Ondansetron Inj 2 Mg/Ml 2 Ml Vial) 4 mg IV Q6H PRN PRN Reason: Nausea Stop: 01/03/20 01:03 Last Admin: 12/04/19 17:21 Dose: 4 mg Documented by: Oxycodone HCl (Oxycodone Hcl Ir 5 Mg Tab (Immediate Release)) 5 mg PO Q6H PRN PRN Reason: Pain Stop: 12/18/19 01:03 Last Admin: 12/06/19 04:09 Dose: 5 mg Documented by: Pantoprazole Sodium (Pantoprazole 40 Mg Tab) 40 mg PO BID [facility] Stop: 01/03/20 08:59 Last Admin: 12/06/19 07:52 Dose: 40 mg Documented by: Polyethylene Glycol (Polyethylene (Miralax) 17 Gm Pack) 17 gm PO DAILY PRN PRN Reason: Constipation Stop: 01/03/20 01:03 Pregabalin (Pregabalin 150 Mg Cap) 300 mg PO BID [facility] Stop: 01/03/20 08:59 Last Admin: 12/06/19 08:02 Dose: 300 mg Documented by: Solifenacin (Solifenacin Succinate) 1 ea PO QAM [facility] Stop: 01/04/20 08:59 Last Admin: 12/06/19 07:54 Dose: 1 ea Documented by: Sumatriptan Succinate (Sumatriptan Succinate 100 Mg Tab) 10 mg PO PRN PRN PRN Reason: Migraine Headache Stop: 01/03/20 01:03
--- NOTE | 2019-12-06 17:29 | Discharge Summary ---
Date of Service December 06, 2019 Admission HPI Per Admitting Provider DICTATED BY: Dl Mann MD DATE OF ADMISSION: 12/04/2019 CHIEF COMPLAINT: Left groin pain. HISTORY OF PRESENT ILLNESS: A 34-year-old female with past medical history significant for type 2 diabetes, hypothyroidism, hyperlipidemia, asthma, moderate persistent, obstructive sleep apnea, hypertension, obesity, GERD, stress urinary incontinence, urge incontinence of urine, degenerative disc disease, lumbar, migraine variant, major depression, agoraphobia with panic disorder, PTSD, generalized anxiety disorder, mixed obsessional thoughts, claustrophobia presents with left groin pain. The pain started about a couple of days ago it progressively got worse, now today she could not even put her weight on the leg and she is having ambulatory dysfunction because of severe pain that is the reason she came to the ER. Denies any injury or any sprain, no heavy lifting,pain came on its own. In the ER even after giving morphine and oxycodone, she still has significant pain and imaging studies were unremarkable in the ER. Labs showed unremarkable except for hemoglobin dropped from recently 12.2 to 10.3. The patient denies any blood in the stools or black stools. No hematuria. Otherwise, she is doing okay. Denies any headache, no blurred vision, no earache. No dizziness, no runny nose, no sore throat, no cough, no chest pain or shortness of breath. No fever, no chills, no nausea, no abdominal pain. Normal bowel and bladder movements. No rash seen. Admission Exam Per Admitting Provider GENERAL: The patient is morbidly obese, currently not in acute distress. VITAL SIGNS: Temperature 37, pulse 101, respiratory rate 20, blood pressure 163/106, oxygen 98% on room air. HEENT: Pupils equal, round, and reactive to light. NECK: No neck masses seen, supple. CARDIOVASCULAR: S1, S2 heard, regular rate and rhythm, no murmur, no gallop. RESPIRATORY SYSTEM: Normal AP diameter. No accessory muscle use. No wheezing, no crackles. ABDOMEN: Soft, bowel sounds present, no distention. Left groin tenderness present, no erythema or drainage seen. CENTRAL NERVOUS SYSTEM: Cranial nerves II-XII grossly intact. Nonfocal. EXTREMITIES: No edema, no erythema. Principal Diagnosis Pain likely secondary to ileo-femoral and genitofemoral neuralgia, STEPHEN, PTSD, Discharge Exam Constitutional well developed, well nourished, + acute distress (Secondary to left inguinal pain) and + obese Eyes PERRL, conjunctivae normal, anicteric sclerae ENMT external ear and nose normal, oropharynx normal Neck trachea midline, no thyromegaly Respiratory normal respiratory effort; no respiratory distress Auscultation: lungs clear to auscultation bilaterally Cardiovascular Rate/Rhythm: regular rate and regular rhythm Heart Sounds: no murmur Gastrointestinal (Abdomen) Inspection/Auscultation: abdomen normal to inspection and normal bowel sounds; abdomen not distended Percussion/Palpation: abdomen soft; abdomen nontender Neurologic moves all extremities; no focal motor deficits Psychiatric A+Ox3, euthymic affect Lymphatic no cervical or axillary lymphadenopathy Discharge Data Allergies Allergy/AdvReac Type Severity Reaction Status Date / Time aripiprazole [From [facility]] Allergy Severe SWELLING Verified 12/03/19 20:25 OF LIPS bee venom protein (honey bee) Allergy Severe ANAPHYLAXIS Verified 12/03/19 20:25 Egg Derived Allergy Severe EDEMA-ALLERGY Verified 12/03/19 20:25 TO FLU SHOT Penicillins Allergy Severe QUIT Verified 12/03/19 20:25 BREATHING/SWELLING latex Allergy Intermediate HIVES,SOB Verified 12/03/19 20:25 benzoyl peroxide Allergy Mild RASH Verified 12/03/19 20:25 permethrin Allergy Mild RASH Verified 12/03/19 20:25 Cephalosporins Allergy Unknown Unknown Verified 12/03/19 20:25 nickel Allergy Unknown Rash Verified 12/03/19 20:25 promethazine AdvReac Mild VOMITING Verified 12/03/19 20:25 Vinegar Allergy Severe EDEMA OF Uncoded 12/03/19 20:25 FACE, LIPS, TONGUE Consultations 12/03/19 23:41 ED Decision to Admit Stat 12/04/19 01:04 Consult Case Management - Discharge Planning Routine 12/04/19 11:23 Consult Pain Management Routine Ordered Studies 12/03/19 19:36 US abdomen ltd hernia Stat US pelvic complete Stat US transvaginal Stat 12/03/19 22:50 CT abd pelvis IV con only Stat 12/04/19 10:08 CT hip LT wo con Routine Hospital Course (1) Left groin pain: Presented with severe acute left groin pain for a few days with difficulty in ambulation Apparently investigation including CT scan of the abdomen and pelvis, ultrasound of the pelvis and CT scan of the left hip came out to be unremarkable Has history of laparoscopic hysterectomy with oophorectomy No evidence of hernia inguinal and/or femoral Appreciate pain therapist input and recommendation Likely has ilioinguinal and genitofemoral neuralgia and will have a trial of steroid. Patient refused to have any local injection control pain Lyrica doses can be increased Will have outpatient MRI if current approach fails control pain Pain seems to be reasonably controlled with as needed use of Percocet on top of other pain medications She will get Decadron as advised by pain therapist She was evaluated by physical therapist and was advised to go home with recommendations on physical activities She was strongly advised to limit the use of narcotics pain medications and take extra precaution to avoid fall. (2) Ambulatory dysfunction: PT and OT evaluation (3) Hypertension: Continue current meds (4) T2DM (type 2 diabetes mellitus): Blood sugar may get worse with the use of steroid (5) STEPHEN (obstructive sleep apnea): (6) PTSD (post-traumatic stress disorder): We will continue her current medications (7) Asthma: Remains stable Morbid obesity-counseling for weight reduction Degenerative disc disease Has been on methocarbamol and meloxicam We will continue Total Time Total Time Spent Total Time Spent (In Minutes): 35 minutes Discharge Plan Discharge Items Patient Disposition: Home - Home Health Services Reason For Visit: GROIN PAIN Discharge Diagnosis: Pain likely secondary to ileo-femoral and genitofemoral neuralgia, STEPHEN, PTSD, Condition on Discharge: Good Activity: Resume your previous activity Activity Comment: As advised by physical therapist Non-emergency contact: Primary Care Provider Call non-emergency contact if: you have any medication questions and your symptoms worsen Follow-up/Referrals: Daquan Alcazar MD [Primary Care Provider] - 12/12/19 11:00 am (Date & Time 12/12/2019 11:00 AM Provider Daquan Alcazar MD Department [facility] ) Diet: Carb Consistent or DM2 Liquid Consistency: Honey thick Addtl Attending Provider Instructions: Please take precaution to avoid fall Use the appropriate device to move around Try to avoid use of too much narcotic pain medication Pending Studies at Discharge: No Stand-Alone Forms: My [facility] [place], Opioid Pain Management, Smoking Cessation Medications and DC Order Prescriptions: New oxycodone 5 mg Tablet 5 mg PO Q6H PRN (Reason: pain) 5 Days Qty: 15 RF: 0 methylprednisolone [Medrol (Nnamdi)] 4 mg tablets,dose pack 4 mg PO UD Qty: 21 RF: 0 Continued ipratropium-albuterol 0.5 mg-3 mg(2.5 mg base)/3 mL solution for nebulization 3 ml INH QID PRN (Reason: wheezing) Qty: 3 RF: 0 (DME) OneTouch Verio test strips Strip See Rx Instructions .ROUTE .MEDSUPPLY Qty: 10 RF: 0 montelukast 10 mg tablet 10 mg PO HS RF: 0 cetirizine 10 mg tablet 10 mg PO HS RF: 0 meloxicam 15 mg tablet 15 mg PO QAM RF: 0 methocarbamol 750 mg tablet 750 mg PO TID RF: 0 metoprolol succinate 200 mg tablet extended release 24 hr 200 mg PO QAM RF: 0 esomeprazole magnesium 40 mg capsule,delayed release(DR/EC) 40 mg PO BID RF: 0 losartan 100 mg tablet 100 mg PO QAM RF: 0 doxepin 150 mg capsule 300 mg PO HS RF: 0 buspirone 15 mg tablet 15 mg PO BID RF: 0 bupropion HCl 300 mg tablet extended release 24 hr 300 mg PO QAM RF: 0 bupropion HCl 150 mg tablet extended release 24 hr 150 mg PO QAM RF: 0 sumatriptan succinate 100 mg tablet 10 mg PO DIRECTED PRN (Reason: Migraine Headache) RF: 0 ondansetron 4 mg tablet,disintegrating 4 mg PO Q8H PRN (Reason: Nausea) RF: 0 clonazepam 1 mg tablet 1 mg PO TID RF: 0 levothyroxine 200 mcg Tablet 200 mcg PO QAM RF: 0 pregabalin [Lyrica] 300 mg Capsule 300 mg PO BID RF: 0 albuterol sulfate [Proventil HFA] 90 mcg/actuation HFA aerosol inhaler 1 puffs INH QID PRN (Reason: SHORT OF BREATH) RF: 0 Lantus U-100 Insulin 100 unit/mL Solution 15 unit SUBCUT QAM RF: 0 insulin aspart U-100 [Novolog U-100 Insulin aspart] 100 unit/mL Solution 5 unit SUBCUT USEASDIRECTD RF: 0 Ozempic 0.25 mg or 0.5 mg(2 mg/1.5 mL) Pen Injector 0.5 mg SUBCUT WK RF: 0 furosemide [Lasix] 40 mg Tablet 40 mg PO QAM RF: 0 atorvastatin [Lipitor] 10 mg Tablet 10 mg PO QAM RF: 0 solifenacin [Vesicare] 10 mg tablet 10 mg PO QAM RF: 0 Discharge Orders: Discharge Order (Routine); Ordered 12/06/19 Ordered By: Kalina Vargas/Other Patient Handouts: Managing Type 2 Diabetes Admission Data Admit Date/Time: 12/04/19 00:27 Attending Provider: Kalina Son Admit Provider: Dl Mann Primary Care Provider: Daquan Alcazar Other Providers: Dl Mann ; Maureen Haji Home [facility] Other Interventions: Discharge Summary Assessment (RN) Last Done: 12/06/19 13:58
[2019-12-06] MEDS ORDERED: methylPREDNISolone 4 MG TAB PO SCH (21:00)
[2019-12-07] MEDS ORDERED: methylPREDNISolone 4 MG TAB PO SCH (07:00)
[2019-12-08] MEDS ORDERED: methylPREDNISolone 4 MG TAB PO SCH (07:00)
[2019-12-09] MEDS ORDERED: methylPREDNISolone 4 MG TAB PO SCH (07:00)
[2019-12-10] MEDS ORDERED: methylPREDNISolone 4 MG TAB PO SCH (07:00)
== END 2019-12-06 15:32 | disposition home or self-care (01) ==
LOC: 3E 19:11 → ED 19:11 → 3E 12-04 00:51

== ENCOUNTER 2021-12-08 14:23 | Inpatient (IN) ==
[2021-12-08] MEDS ORDERED: ACETAMINOPHEN 500 MG TAB PO STA (14:42)
[2021-12-08] MEDS ORDERED: KETOROLAC TROMETHAMINE 15 MG/ML VIAL IV STA (14:42)
[2021-12-08] MEDS ORDERED: ALBUT/IPRATROP 3MG/0.5MG NEB 3 ML VIAL INH STA (14:42)
[2021-12-08] MEDS ORDERED: dexAMETHasone**PF** 10 MG/ML VIAL IV ONE (14:42)
[2021-12-08] MEDS ORDERED: SODIUM CHLORIDE 0.9% 1000ML 1,000 ML IV SCH (14:45)
--- NOTE | 2021-12-08 14:56 | Emergency Department Note ---
Impression & Plan SOB (shortness of breath), Hypertension, Asthma exacerbation, COVID-19 ED Provider Note NAME: JULIO C MONTENEGRO AGE: 36 SEX: F : 1985 ARRIVES VIA: Ambulance INFORMANT: [Patient] ED PROVIDER(S): [Jacob Stroud MD] CHIEF COMPLAINT: Illness HISTORY OF PRESENT ILLNESS: The patient is a 36-year-old asthmatic who presents with 4 days of symptoms. She has had neck pain, nasal congestion, sore throat, headache, fatigue, decreased appetite, diarrhea, fever and some dizziness. She feels short of breath, especially with exertion. The patient took an at home COVID test this morning and it was positive. Patient took Tylenol around 6 hours ago for symptoms. She has been using her nebulizer and inhaler. The patient has noticed a hoarseness to her voice. She has not had much to eat or drink. REVIEW OF SYSTEMS: See HPI for pertinent positives and negatives. A total of ten systems were reviewed and were otherwise negative. PMHx/PSHx: See Below SOCIAL HISTORY: See Below. PHYSICAL EXAM: GENERAL: Patient is in no acute distress. HEENT: No acute trauma, normocephalic atraumatic, mucous membranes moist, very mild nasal congestion, no scleral icterus. No throat erythema or exudate. NECK: No stridor, no adenopathy, no meningismus, trachea is midline. LUNGS: Clear to auscultation bilaterally, no wheeze, no rhonchi, breath sounds equal. Breath sounds are diminished bilaterally. HEART: Tachycardic, regular rhythm, no murmurs. ABDOMEN: Soft, nontender, bowel sounds positive, no peritonitis. EXTREMITIES: No cyanosis, mild bilateral pedal edema, full range of motion of all the joints without pain or difficulty, no signs for acute trauma. NEUROLOGIC: Oriented x 3, no acute motor or sensory deficits, no focal weakness. SKIN: No rash, no jaundice, no diaphoresis. DIFFERENTIAL DIAGNOSIS: Generalized viral illness, bronchitis, pneumonia, asthma exacerbation, dehydration, electrolyte imbalance, anemia, influenza, COVID-19, among others EMERGENCY DEPARTMENT COURSE/PROCEDURES: ECG: Indication was shortness of breath and tachycardia. The ECG shows a sinus tachycardia with a rate of 123. There is no ST elevation, no PVCs. Some LVH is present. QTC was 469 Continuous Cardiac Monitoring: An order was placed for continuous cardiac monitoring. The monitor shows a rate of 121 with sinus tachycardia. MEDICAL DECISION MAKING: There is no leukocytosis or concerning anemia. There is a normal platelet count. No renal failure or significant electrolyte abnormality. No concerning liver enzyme elevation. ECG showed a sinus tachycardia, no obvious ischemia. Cardiac enzyme testing x1 is not consistent with acute cardiac injury. testing returned negative. Procalcitonin level returned negative. Urinalysis does not show infection. COVID test returned positive. Chest x-ray shows some diffuse congestion but no focal pneumonia. No pneumothorax. On exam, the patient was tachycardic. Patient was given IV saline, 1 L. She was given IV Zofran, IV morphine. She received IV labetalol for her high blood pressure. She was given IV Toradol, IV Decadron albuterol via MDI. She was given oral Tylenol. The patient does look improved but she is still quite short of breath with any exertion. Her blood pressure is improved. Given her findings, given her past history, I do think a hospital stay is warranted. I do not think she will do well going home. I suspect her COVID infection has flared her asthma to the point of significant dyspnea. 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 Diabetes mellitus, type 2 Enlarged liver GERD (gastroesophageal reflux disease) Hyperlipidemia Hypertension Hypothyroidism Migraine Morbid obesity Palpitations on BB for this Sleep apnea CPAP DEVICE Stress incontinence Uterine mass Surgical History History of adenoidectomy History of appendectomy History of section X 3 History of cholecystectomy History of colonoscopy History of dilatation and curettage History of endoscopic sinus surgery History of esophagogastroduodenoscopy (EGD) History of tonsillectomy and adenoidectomy History of tooth extraction History of tubal ligation Nausea and vomiting after administration of anesthetic agent MIGRAINE HEADACHE-POST OP EGD/COLONOSCOPY 08/2019 Family History Other Past medical history not known due to adoption Social History Smoking Status: Never smoker Second Hand Exposure: No; Hx Alcohol Use: No Hx Substance Use: No Preferred Language: Yoruba Communication Ability: Effective Visual Impairment: No Limitations Hearing Ability: Use of Hearing Aid Digital Business Analyst Required: No Beliefs That Will Affect Care: None marital status: Current Living Situation: Spouse current occupational status: employed current occupation: homemaker Other Information That Helps Us Care for You: No Feels Safe at Home: Yes Safety Concerns: Feels Safe At This Time Childhood Exposure to Second-Hand Smoke: Yes caffeine: Yes (coffee) during the past year weight has: other Dental Care, Regularly: No Physical Activity Frequency: Does not Exercise Seatbelt Use: always Sunscreen Use: No Assistive Devices: Walker Allergies Allergies Allergy/AdvReac Type Severity Reaction Status Date / Time aripiprazole [From Abilify] Allergy Severe SWELLING Verified 12/08/21 15:17 OF LIPS bee venom protein (honey bee) Allergy Severe ANAPHYLAXIS Verified 12/08/21 15:17 Egg Derived Allergy Severe EDEMA-ALLERGY Verified 12/08/21 15:17 TO FLU SHOT Penicillins Allergy Severe QUIT Verified 12/08/21 15:17 BREATHING/SWELLING latex Allergy Intermediate HIVES,SOB Verified 12/08/21 15:17 benzoyl peroxide Allergy Mild RASH Verified 12/08/21 15:17 nickel Allergy Mild Rash Verified 12/08/21 15:17 permethrin Allergy Mild RASH Verified 12/08/21 15:17 Cephalosporins Allergy Unknown Unknown Verified 12/08/21 15:17 promethazine AdvReac Mild VOMITING Verified 12/08/21 15:17 Vinegar Allergy Severe EDEMA OF Uncoded 12/08/21 15:17 FACE, LIPS, TONGUE Home Meds Home Medications Medication Instructions Recorded Confirmed cetirizine 10 mg tablet 10 mg PO HS 07/15/18 12/08/21 montelukast 10 mg tablet 10 mg PO HS 07/15/18 12/08/21 bupropion HCl 150 mg 24 hr tablet, 150 mg PO QAM 01/27/19 12/08/21 extended release bupropion HCl 300 mg 24 hr tablet, 300 mg PO QAM 01/27/19 12/08/21 extended release clonazepam 1 mg tablet 1 mg PO TID PRN Anxiety 01/27/19 12/08/21 esomeprazole magnesium 40 mg 40 mg PO BID 01/27/19 12/08/21 capsule,delayed release ondansetron 4 mg disintegrating 4 mg PO Q8H PRN Nausea 01/27/19 12/08/21 tablet sumatriptan succinate 100 mg tablet 10 mg PO DIRECTED PRN Migraine 01/27/19 12/08/21 Headache blood sugar diagnostic (OneTouch #10 ea 05/06/19 05/24/21 Verio test strips) albuterol sulfate 90 mcg/actuation 1 puffs inhalation QID PRN SHORT 08/19/19 12/08/21 aerosol inhaler (Proventil HFA) OF BREATH furosemide 40 mg tablet (Lasix) 40 mg PO QAM PRN Weight Gain 08/19/19 12/08/21 insulin aspart U-100 100 unit/mL 5 unit subcut USEASDIRECTD 08/19/19 12/08/21 subcutaneous solution (Novolog U-100 Insulin aspart) insulin glargine 100 unit/mL 22 unit subcut QPM 08/19/19 12/08/21 subcutaneous solution (Lantus U-100 Insulin) pregabalin 300 mg capsule (Lyrica) 300 mg PO TID 08/19/19 12/08/21 doxepin 100 mg capsule 100 mg PO HS 12/08/21 12/08/21 dulaglutide 1.5 mg/0.5 mL 1.5 mg subcut WK 12/08/21 12/08/21 subcutaneous pen injector (Trulicity) fluticasone propionate 50 2 spray intranasal DAILY 12/08/21 12/08/21 mcg/actuation nasal spray,suspension lamotrigine 100 mg tablet 100 mg PO DAILY 12/08/21 12/08/21 levothyroxine 200 mcg tablet 200 mcg PO DAILY 12/08/21 12/08/21 (Synthroid) levothyroxine 75 mcg capsule 75 mcg PO DAILY 12/08/21 12/08/21 lurasidone 60 mg tablet (Latuda) 60 mg PO DAILY 12/08/21 12/08/21 oxcarbazepine 300 mg tablet 600 mg PO QAM 12/08/21 12/08/21 prazosin 5 mg capsule 5 mg PO HS 12/08/21 12/08/21 Previous Rx's Medication Instructions Recorded ipratropium 0.5 mg-albuterol 3 mg 3 ml inhalation QID PRN wheezing 05/06/19 (2.5 mg base)/3 mL nebulization #3 mL soln Results & Data (ED) Vital Signs Vital Signs - 24 hr 12/08/21 14:38 12/08/21 14:27 12/08/21 14:28 Pulse Rate 125 H 126 H 127 H Pulse Rate from SpO2 Sensor 126 H 127 H Respiratory Rate 25 H 22 20 Respiratory Effort / Characteristics Non-Labored Respiratory Depth Normal Blood Pressure 181/112 H Blood Pressure Mean 135 Blood Pressure Position Sitting Pulse Oximetry 96 95 95 Oxygen Delivery Method Room Air Sepsis Recent Fever Within 48 Hours Yes Sepsis New/Unexplained Change in Mental Status N/A Sepsis Action Taken by Nursing Physician Notified 12/08/21 14:28 12/08/21 14:30 12/08/21 15:10 Pulse Rate 126 H 120 H Pulse Rate from SpO2 Sensor Respiratory Rate 13 19 Respiratory Effort / Characteristics Respiratory Depth Blood Pressure 181/112 H Blood Pressure Mean 135 Blood Pressure Position Pulse Oximetry Oxygen Delivery Method Sepsis Recent Fever Within 48 Hours Sepsis New/Unexplained Change in Mental Status Sepsis Action Taken by Nursing 12/08/21 15:15 12/08/21 15:30 12/08/21 15:45 Pulse Rate 116 H 116 H 117 H Pulse Rate from SpO2 Sensor Respiratory Rate 19 16 19 Respiratory Effort / Characteristics Respiratory Depth Blood Pressure Blood Pressure Mean Blood Pressure Position Pulse Oximetry Oxygen Delivery Method Sepsis Recent Fever Within 48 Hours Sepsis New/Unexplained Change in Mental Status Sepsis Action Taken by Nursing 12/08/21 16:00 12/08/21 16:20 12/08/21 16:30 Pulse Rate 119 H 119 H 116 H Pulse Rate from SpO2 Sensor Respiratory Rate 16 24 18 Respiratory Effort / Characteristics Respiratory Depth Blood Pressure Blood Pressure Mean Blood Pressure Position Pulse Oximetry Oxygen Delivery Method Sepsis Recent Fever Within 48 Hours Sepsis New/Unexplained Change in Mental Status Sepsis Action Taken by Nursing 12/08/21 16:36 12/08/21 16:36 12/08/21 16:40 Pulse Rate 120 H 101 H Pulse Rate from SpO2 Sensor Respiratory Rate 19 14 Respiratory Effort / Characteristics Respiratory Depth Blood Pressure 172/95 H Blood Pressure Mean 120 Blood Pressure Position Pulse Oximetry Oxygen Delivery Method Sepsis Recent Fever Within 48 Hours Sepsis New/Unexplained Change in Mental Status Sepsis Action Taken by Nursing 12/08/21 16:50 Pulse Rate 102 H Pulse Rate from SpO2 Sensor Respiratory Rate 25 H Respiratory Effort / Characteristics Respiratory Depth Blood Pressure 152/80 H Blood Pressure Mean 104 Blood Pressure Position Pulse Oximetry Oxygen Delivery Method Sepsis Recent Fever Within 48 Hours Sepsis New/Unexplained Change in Mental Status Sepsis Action Taken by Alf Medications Current Medication List: was personally reviewed by me Laboratory Data Attestation: I reviewed the patient's lab results. Result diagrams: 12/08/21 15:09 12/08/21 15:09 Lab Results 12/08/21 12/08/21 12/08/21 Range/Units 15:09 15:09 15:09 WBC 6.95 (4.8-10.8) K/ul RBC 4.32 (3.93-5.22) M/uL Hgb 12.8 (12.0-16.0) g/dl Hct 37.0 (34.1-44.9) % MCV 85.6 (80.0-100.0) fL MCH 29.6 (25.0-34.0) pg MCHC 34.6 (32.0-36.0) g/dL RDW Std Deviation 38.7 (36.4-46.3) fL RDW Coeff of [place] 12.4 (11.5-14.5) % Plt Count 190 (130-400) K/uL MPV 9.5 (9.4-12.3) fL Immature Gran % (Auto) 0.4 % Neut % (Auto) 82.1 % Lymph % (Auto) 8.9 % Ballard % (Auto) 7.6 % Eos % (Auto) 0.6 % Baso % (Auto) 0.4 % Neut # (Auto) 5.70 (1.4-6.5) K/uL Lymph # (Auto) 0.62 L (1.2-3.4) K/uL Ballard # (Auto) 0.53 (0.24-0.82) K/uL Eos # (Auto) 0.04 (0-0.50) K/uL Baso # (Auto) 0.03 (0-0.2) K/uL Immature Gran # (Auto) 0.03 H (0.00-0.02) K/uL Sodium 139 (136-145) mmol/L Potassium 4.3 (3.5-5.1) mmol/L Chloride 100 (98-107) mmol/L Carbon Dioxide 26 (21-32) mmol/L Anion Gap 13 H (3-11) BUN 12 (6-23) mg/dl Creatinine 0.93 (0.6-1.2) mg/dl Est Cr Clr Drug Dosing 100.1 ml/min Est GFR ( Amer) 90.4 ml/min Est GFR (Non-Af Amer) 78.0 ml/min BUN/Creatinine Ratio 12.9 (10-20) Glucose 100 H (70-99(Fasting)) mg/dl Calcium 9.4 (8.5-10.1) mg/dl Magnesium 2.0 (1.7-2.4) mg/dl Total Bilirubin 0.4 (0.2-1.0) mg/dl AST 39 (13-39) U/L ALT 45 (7-52) U/L Alkaline Phosphatase 114 H (34-104) U/L Troponin I High Sens 5.4 (0-14) pg/ml C-Reactive Protein (0-0.5) mg/dl Total Protein 7.7 (6.0-8.3) gm/dl Albumin 4.4 (3.4-5.0) gm/dl Globulin 3.3 (2.5-4.0) gm/dl Albumin/Globulin Ratio 1.3 (0.9-2) Procalcitonin (0-0.5) ng/ml HCG, Qual Negative (Negative) Urine Color Urine Appearance (Clear) Urine pH (4.5-7.5) Ur Specific [place] (1.000-1.030) Urine Protein (Negative) Urine Glucose (UA) (Negative) Urine Ketones (Negative) Urine Blood (Negative) Urine Nitrite (Negative) Urine Bilirubin (Negative) Urine Urobilinogen (Negative) Ur Leukocyte Esterase (Negative) SARS-CoV-2 (PCR) (Negative) 12/08/21 12/08/21 12/08/21 Range/Units 15:09 15:09 15:09 WBC (4.8-10.8) K/ul RBC (3.93-5.22) M/uL Hgb (12.0-16.0) g/dl Hct (34.1-44.9) % MCV (80.0-100.0) fL MCH (25.0-34.0) pg MCHC (32.0-36.0) g/dL RDW Std Deviation (36.4-46.3) fL RDW Coeff of [place] (11.5-14.5) % Plt Count (130-400) K/uL MPV (9.4-12.3) fL Immature Gran % (Auto) % Neut % (Auto) % Lymph % (Auto) % Ballard % (Auto) % Eos % (Auto) % Baso % (Auto) % Neut # (Auto) (1.4-6.5) K/uL Lymph # (Auto) (1.2-3.4) K/uL [place] # (Auto) (0.24-0.82) K/uL Eos # (Auto) (0-0.50) K/uL Baso # (Auto) (0-0.2) K/uL Immature Gran # (Auto) (0.00-0.02) K/uL Sodium (136-145) mmol/L Potassium (3.5-5.1) mmol/L Chloride (98-107) mmol/L Carbon Dioxide (21-32) mmol/L Anion Gap (3-11) BUN (6-23) mg/dl Creatinine (0.6-1.2) mg/dl Est Cr Clr Drug Dosing ml/min Est GFR ( Amer) ml/min Est GFR (Non-Af Amer) ml/min BUN/Creatinine Ratio (10-20) Glucose (70-99(Fasting)) mg/dl Calcium (8.5-10.1) mg/dl Magnesium (1.7-2.4) mg/dl Total Bilirubin (0.2-1.0) mg/dl AST (13-39) U/L ALT (7-52) U/L Alkaline Phosphatase (34-104) U/L Troponin I High Sens (0-14) pg/ml C-Reactive Protein 4.09 H (0-0.5) mg/dl Total Protein (6.0-8.3) gm/dl Albumin (3.4-5.0) gm/dl Globulin (2.5-4.0) gm/dl Albumin/Globulin Ratio (0.9-2) Procalcitonin (0-0.5) ng/ml HCG, Qual (Negative) Urine Color Yellow Urine Appearance Clear (Clear) Urine pH 7.0 (4.5-7.5) Ur Specific [place] 1.009 (1.000-1.030) Urine Protein Negative (Negative) Urine Glucose (UA) Negative (Negative) Urine Ketones Negative (Negative) Urine Blood Negative (Negative) Urine Nitrite Negative (Negative) Urine Bilirubin Negative (Negative) Urine Urobilinogen Negative (Negative) Ur Leukocyte Esterase Negative (Negative) SARS-CoV-2 (PCR) POSITIVE A* (Negative) 12/08/21 Range/Units 15:09 WBC (4.8-10.8) K/ul RBC (3.93-5.22) M/uL Hgb (12.0-16.0) g/dl Hct (34.1-44.9) % MCV (80.0-100.0) fL MCH (25.0-34.0) pg MCHC (32.0-36.0) g/dL RDW Std Deviation (36.4-46.3) fL RDW Coeff of [place] (11.5-14.5) % Plt Count (130-400) K/uL MPV (9.4-12.3) fL Immature Gran % (Auto) % Neut % (Auto) % Lymph % (Auto) % [place] % (Auto) % Eos % (Auto) % Baso % (Auto) % Neut # (Auto) (1.4-6.5) K/uL Lymph # (Auto) (1.2-3.4) K/uL [place] # (Auto) (0.24-0.82) K/uL Eos # (Auto) (0-0.50) K/uL Baso # (Auto) (0-0.2) K/uL Immature Gran # (Auto) (0.00-0.02) K/uL Sodium (136-145) mmol/L Potassium (3.5-5.1) mmol/L Chloride (98-107) mmol/L Carbon Dioxide (21-32) mmol/L Anion Gap (3-11) BUN (6-23) mg/dl Creatinine (0.6-1.2) mg/dl Est Cr Clr Drug Dosing ml/min Est GFR ( Amer) ml/min Est GFR (Non-Af Amer) ml/min BUN/Creatinine Ratio (10-20) Glucose (70-99(Fasting)) mg/dl Calcium (8.5-10.1) mg/dl Magnesium (1.7-2.4) mg/dl Total Bilirubin (0.2-1.0) mg/dl AST (13-39) U/L ALT (7-52) U/L Alkaline Phosphatase (34-104) U/L Troponin I High Sens (0-14) pg/ml C-Reactive Protein (0-0.5) mg/dl Total Protein (6.0-8.3) gm/dl Albumin (3.4-5.0) gm/dl Globulin (2.5-4.0) gm/dl Albumin/Globulin Ratio (0.9-2) Procalcitonin < 0.05 (0-0.5) ng/ml HCG, Qual (Negative) Urine Color Urine Appearance (Clear) Urine pH (4.5-7.5) Ur Specific [place] (1.000-1.030) Urine Protein (Negative) Urine Glucose (UA) (Negative) Urine Ketones (Negative) Urine Blood (Negative) Urine Nitrite (Negative) Urine Bilirubin (Negative) Urine Urobilinogen (Negative) Ur Leukocyte Esterase (Negative) SARS-CoV-2 (PCR) (Negative) Administered Medications Albuterol (Albut/Ipratrop 3mg/0.5mg Neb 3 Ml Vial) 3 ml INH QIDR ENIO; Protocol Stop: 01/07/22 18:59 Last Admin: 12/08/21 19:55 Dose: 3 ml Documented By: EML Cetirizine HCl (Cetirizine Hcl 10 Mg Tablet) 10 mg PO HS ENIO Stop: 01/07/22 20:59 Last Admin: 12/08/21 20:35 Dose: 10 mg Documented By: CLC Doxepin HCl (Doxepin Hcl 50 Mg Capsule) 100 mg PO HS ENIO Stop: 01/07/22 20:59 Last Admin: 12/08/21 20:35 Dose: 100 mg Documented By: CLC Enoxaparin Sodium (Enoxaparin Inj 40 Mg/0.4 Ml Syr) 40 mg SQ Q12H ENIO Stop: 01/07/22 18:59 Last Admin: 12/08/21 20:33 Dose: 40 mg Documented By: CLC Insulin Aspart (Novolog Insulin Pump) 1 each N/A ACHS ENIO; Protocol Stop: 01/07/22 20:59 Last Admin: 12/08/21 20:45 Dose: 1 each Documented By: CLC Ketorolac Tromethamine (Ketorolac Tromethamine 15 Mg/Ml Vial) 15 mg IV Q6H PRN PRN Reason: Pain Stop: 12/13/21 22:22 Last Admin: 12/08/21 22:54 Dose: 15 mg Documented By: CLC Lamotrigine (Lamotrigine 100 Mg Tab) 100 mg PO [facility] Stop: 01/07/22 20:59 Last Admin: 12/08/21 20:35 Dose: 100 mg Documented By: CLC Lurasidone HCl (Lurasidone Hcl 40 Mg Tab) 60 mg PO [facility] Stop: 01/07/22 20:59 Last Admin: 12/08/21 20:35 Dose: 60 mg Documented By: CLC Montelukast Sodium (Montelukast Sodium 10 Mg Tablet) 10 mg PO [facility] Stop: 01/07/22 20:59 Last Admin: 12/08/21 20:36 Dose: 10 mg Documented By: CLC Morphine Sulfate (Morphine Sulfate 2 Mg/Ml Carp) 2 mg IV Q4H PRN PRN Reason: Headache Stop: 12/22/21 16:58 Last Admin: 12/08/21 19:56 Dose: 2 mg Documented By: CLC Pantoprazole Sodium (Pantoprazole 40 Mg Tab) 40 mg PO BID ENIO Stop: 01/07/22 20:59 Last Admin: 12/08/21 20:36 Dose: 40 mg Documented By: CLC Prazosin HCl (Prazosin Hcl 1 Mg Cap) 5 mg PO HS [facility] Stop: 01/07/22 20:59 Last Admin: 12/08/21 20:36 Dose: 5 mg Documented By: CLC Pregabalin (Pregabalin 150 Mg Cap) 300 mg PO TID ENIO Stop: 01/07/22 20:59 Last Admin: 12/08/21 20:35 Dose: 300 mg Documented By: CLC Discontinued Medications Acetaminophen (Acetaminophen 500 Mg Tab) 1,000 mg PO NOW STA Stop: 12/08/21 14:43 Last Admin: 12/08/21 15:15 Dose: 1,000 mg Documented By: CJS Albuterol (Albut/Ipratrop 3mg/0.5mg Neb 3 Ml Vial) 3 ml INH NOW STA Stop: 12/08/21 14:43 Last Admin: 12/08/21 15:17 Dose: 3 ml Documented By: VLAD Dexamethasone Sodium Phosphate (DexamethasonePf 10 Mg/Ml Vial) 6 mg IV NOW ONE Stop: 12/08/21 14:43 Last Admin: 12/08/21 15:16 Dose: 6 mg Documented By: VLAD Sodium Chloride (Nss 1000ml) 1,000 mls @ 999 mls/hr IV .Q1H1M ENIO Stop: 12/08/21 15:45 Last Infusion: 12/08/21 16:07 Dose: 0 mls/hr Documented By: Admin: 12/08/21 15:17 Dose: 999 mls/hr Documented By: VLAD Magnesium Sulfate/Dextrose (Magnesium Sulfate / D5w) 1 gm in 100 mls @ 50 mls/hr IV ONE ONE Stop: 12/08/21 20:40 Last Infusion: 12/08/21 22:06 Dose: 0 mls/hr Documented By: Admin: 12/08/21 19:55 Dose: 50 mls/hr Documented By: AN Ketorolac Tromethamine (Ketorolac Tromethamine 15 Mg/Ml Vial) 15 mg IV NOW STA Stop: 12/08/21 14:43 Last Admin: 12/08/21 15:16 Dose: 15 mg Documented By: VLAD Labetalol HCl (Labetalol Hcl Iv 5 Mg/Ml 20ml) 10 mg IV NOW STA Stop: 12/08/21 16:21 Last Admin: 12/08/21 16:40 Dose: 10 mg Documented By: LINDA Co-signed By: MARICRUZ Morphine Sulfate (Morphine Sulfate 4 Mg/Ml 1 Ml Carp\Vial) 4 mg IV NOW STA Stop: 12/08/21 16:21 Last Admin: 12/08/21 16:40 Dose: 4 mg Documented By: LINDA Ondansetron HCl (Ondansetron Inj 2 Mg/Ml 2 Ml Vial) 4 mg IV NOW STA Stop: 12/08/21 16:21 Last Admin: 12/08/21 16:40 Dose: 4 mg Documented By: LINDA Imaging Data Radiologist's Impression: Chest X-Ray 12/08/21 14:42 SINGLE VIEW CHEST CLINICAL HISTORY: Dyspnea. Covid FINDINGS: An AP, portable, upright chest radiograph is compared to study dated 07/24/2020 and correlated with chest CT dated 11/12/2019. The heart is enlarged. The pulmonary vasculature is noncongested. Mild atelectasis is seen at the lung bases. The lungs and pleural spaces are otherwise clear. No pneumothorax is seen. The skeletal structures appear osteopenic. The bony thorax is grossly intact. IMPRESSION: Cardiac enlargement with no active disease in the chest. ACT 112: Negative or not required by law. Electronically signed by: Jacob Choudhary M.D. 12/08/2021 5:30 PM Discharge Plan Visit Data Chief Complaint: Illness ED Provider: Jacob Stroud Discharge Problem: SOB (shortness of breath), Hypertension, Asthma exacerbation, COVID-19 Patient Disposition: Admitted As Inpatient Condition: Fair Discharge Instructions Interventions: ED Discharge Assessment Last Done: 12/08/21 18:25
[2021-12-08 15:21] LABS: Basophils # (auto) 0.03 K/uL (0-0.2); Basophils % (auto) 0.4 %; Eosinophils # (auto) 0.04 K/uL (0-0.50); Eosinophils % (auto) 0.6 %; Hemoglobin 12.8 g/dl (12.0-16.0); Immature Granulocytes # (auto) 0.03 K/uL (0.00-0.02); Immature Granulocytes % (auto) 0.4 %; Lymphocytes # (auto) 0.62 K/uL (1.2-3.4); Lymphocytes % (auto) 8.9 %; Mean Corpuscular Hemoglobin 29.6 pg (25.0-34.0); Mean Corpuscular Hgb Conc 34.6 g/dL (32.0-36.0); Mean Corpuscular Volume 85.6 fL (80.0-100.0); Mean Platelet Volume 9.5 fL (9.4-12.3); Monocytes # (auto) 0.53 K/uL (0.24-0.82); Monocytes % (auto) 7.6 %; Neutrophils % (auto) 82.1 %; Platelet Count 190 K/uL (130-400); RDW Coefficient of Variation 12.4 % (11.5-14.5); RDW Standard Deviation 38.7 fL (36.4-46.3); Red Blood Count 4.32 M/uL (3.93-5.22); White Blood Count 6.95 K/ul (4.8-10.8)
[2021-12-08 15:27] LABS: Appearance Urine Clear (Clear); Bilirubin Urine Negative (Negative); Blood Urine Negative (Negative); Color Urine Yellow; Glucose Urine UA Negative (Negative); Ketones Urine Negative (Negative); Leukocyte Esterase Urine Negative (Negative); Nitrite Urine Negative (Negative); Protein Urine Negative (Negative); Specific Gravity Urine 1.009 (1.000-1.030); Urobilinogen Urine Negative (Negative)
[2021-12-08 15:34] LABS: Pregnancy Test, Serum Negative (Negative)
[2021-12-08 15:49] LABS: Albumin Globulin Ratio 1.3 (0.9-2); Albumin Level 4.4 gm/dl (3.4-5.0); BUN Creatinine Ratio 12.9 (10-20); Bilirubin,Total 0.4 mg/dl (0.2-1.0); Calcium 9.4 mg/dl (8.5-10.1); Creatinine Clr Calc Pharmacy 100.1 ml/min; Est GFR (African American) 90.4 ml/min; Globulin 3.3 gm/dl (2.5-4.0); Potassium 4.3 mmol/L (3.5-5.1); Total Protein 7.7 gm/dl (6.0-8.3)
[2021-12-08 15:53] LABS: Troponin I High Sensitivity 5.4 pg/ml (0-14)
[2021-12-08] MEDS ORDERED: LABETALOL HCL IV 5 MG/ML 20ML IV STA (16:20)
[2021-12-08] MEDS ORDERED: MoRPHine SULFATE 4 MG/ML 1 ML CARP\\VIAL IV STA (16:20)
[2021-12-08] MEDS ORDERED: ONDANSETRON INJ 2 MG/ML 2 ML VIAL IV STA (16:20)
[2021-12-08] MEDS ORDERED: MoRPHine SULFATE 4 MG/ML 1 ML CARP\\VIAL IV PRN (16:59)
--- NOTE | 2021-12-08 17:32 | XRay Report ---
SINGLE VIEW CHEST CLINICAL HISTORY: Dyspnea. Covid FINDINGS: An AP, portable, upright chest radiograph is compared to study dated 07/24/2020 and correlat ed with chest CT dated 11/12/2019. The heart is enlarged. The pulmonary vasculature is noncongested. M ild atelectasis is seen at the lung bases. The lungs and pleural spaces are otherwise clear. No pneum othorax is seen. The skeletal structures appear osteopenic. The bony thorax is grossly intact. IMPRESSION: Cardiac enlargement with no active disease in the chest. ACT 112: Negative or not required by law. Electronically signed by: Jacob Choudhary M.D. 12/08/2021 5:30 PM
--- NOTE | 2021-12-08 18:00 | History & Physical Report ---
Date of Service December 08, 2021 Assessment & Plan (1) COVID-19: Plan: -Admit to PCU as patient is high risk for decompensation with her multiple comorbidities -Currently stable on room air but gets very SOB ambulating small distances -No leukocytosis or signs of pneumonia on chest xray, will hold abx -Given 6 mg IV dexamethasone in the ED, but she is not hypoxic on RA so will hold additional Dexamethasone for now -Continue scheduled DuoNeb q4h and incentive spirometry -Monitor respiratory status and treat symptomatically for now -Will order CRP and procal -Monitor on tele and continuous pulse oximetry -PRN O2 ordered added -AM CBC and BMP (2) Asthma: Plan: -Patient is currently without respiratory distress and stable on RA -Will give 1g IV mag to help prevent asthma exacerbation -Continue breath treatments and monitor respiratory status (3) T2DM (type 2 diabetes mellitus): Plan: -Patient uses insulin pump for basal and bolus dosing -Spoke to pharmacy, ok for patient to use own pump, order placed -Will monitor BSG ACHS (4) Hypertension: Plan: -BP currently 152/80 -Was given 10 mg IV labetalol for HTN and headache prior to admission -Only on Prazosin for nightmares, continue for now (5) Depression with anxiety: Plan: -Continue lamictal, latuda, Wellbutin, clonazepam, and lyrica (6) PTSD (post-traumatic stress disorder): Plan: -See depression and anxiety (7) Hypothyroidism: Plan: -Continue Synthroid; patient said she was on Generic medication prior and it did not work, has to have Synthroid (8) GERD (gastroesophageal reflux disease): Plan: -Continue esomeprazole magnesium (9) STEPHEN (obstructive sleep apnea): Plan: -HS CPAP orde placed Plan The patient was discussed with Dr. Alaniz at the time of admission History of Present Illness Chief Complaint: Shortness of breath Primary Care Provider: Emmy Rosyramu Whittaker is a 36 year old female with a PMH significant for Morbid obesity, asthma, STEPHEN on HS CPAP, HTN, Hyperlipidemia, DM II, GERD, Migraines, PTSD, Depress and anxiety who presented to the [facility] ED on 12/08/21 with a chief complaint of SOB. At the time of the exam the patient was sitting comfortably in bed in no acute distress. She states that she began developing upper respiratory symptoms including congestion, sore throat, post-nasal drip approximately 5 days ago, two days later she then developed a productive cough with green sputum, shortness of breath, and a headache. She states that she used her albuterol and DuoNeb inhalers without relief of her symptoms, she took a home covid test and it was positive. She states that she had covid back in 2019 and her SpO2 fell as low as 60% but the patient said she refused to go to the hospital at that time. She states that she now wants treatment because she is scared that her condition will acutely deteriorate. She does feel SOB at rest and states that she gets severely SOB and lightheaded when ambulating even to the bathroom. In the ED the patient was initially found to be febrile, hypertensive at 181/112, and stable on room air. Labs were remarkable for + Covid PCR, chest xray showed Cardiomegaly but no acute lung disease. In the ED the patient was given multiple toradol and morphine for her headache, 6 mg IV Dexamethasone, duoNeb nebulizer, a 1000 mL NSS bolus, and 10 mg IV labetalol. Allergies Allergy/AdvReac Type Severity Reaction Status Date / Time aripiprazole [From Abilify] Allergy Severe SWELLING Verified 12/08/21 15:17 OF LIPS bee venom protein (honey bee) Allergy Severe ANAPHYLAXIS Verified 12/08/21 15:17 Penicillins Allergy Severe QUIT Verified 12/08/21 15:17 BREATHING/SWELLING latex Allergy Intermediate HIVES,SOB Verified 12/08/21 15:17 benzoyl peroxide Allergy Mild RASH Verified 12/08/21 15:17 nickel Allergy Mild Rash Verified 12/08/21 15:17 permethrin Allergy Mild RASH Verified 12/08/21 15:17 Cephalosporins Allergy Unknown Unknown Verified 12/08/21 15:17 promethazine AdvReac Mild VOMITING Verified 12/08/21 15:17 Vinegar Allergy Severe EDEMA OF Uncoded 12/08/21 15:17 FACE, LIPS, TONGUE influenza vaccine AdvReac Mild swelling Uncoded 12/10/21 20:03 at injection site Home Medications Medication Instructions Recorded Confirmed Type cetirizine 10 mg tablet 10 mg PO HS 07/15/18 12/08/21 History montelukast 10 mg tablet 10 mg PO HS 07/15/18 12/08/21 History bupropion HCl 150 mg 24 hr tablet, 150 mg PO QAM 01/27/19 12/08/21 History extended release bupropion HCl 300 mg 24 hr tablet, 300 mg PO QAM 01/27/19 12/08/21 History extended release clonazepam 1 mg tablet 1 mg PO TID PRN Anxiety 01/27/19 12/08/21 History esomeprazole magnesium 40 mg 40 mg PO BID 01/27/19 12/08/21 History capsule,delayed release ondansetron 4 mg disintegrating 4 mg PO Q8H PRN Nausea 01/27/19 12/08/21 History tablet sumatriptan succinate 100 mg tablet 10 mg PO DIRECTED PRN Migraine 01/27/19 12/08/21 History Headache blood sugar diagnostic (OneTouch #10 ea 05/06/19 05/24/21 History Verio test strips) ipratropium 0.5 mg-albuterol 3 mg 3 ml inhalation QID PRN wheezing 05/06/19 12/08/21 Rx (2.5 mg base)/3 mL nebulization #3 mL soln albuterol sulfate 90 mcg/actuation 1 puffs inhalation QID PRN SHORT 08/19/19 12/08/21 History aerosol inhaler (Proventil HFA) OF BREATH furosemide 40 mg tablet (Lasix) 40 mg PO QAM PRN Weight Gain 08/19/19 12/08/21 History insulin aspart U-100 100 unit/mL 5 unit subcut USEASDIRECTD 08/19/19 12/08/21 History subcutaneous solution (Novolog U-100 Insulin aspart) insulin glargine 100 unit/mL 22 unit subcut QPM 08/19/19 12/08/21 History subcutaneous solution (Lantus U-100 Insulin) pregabalin 300 mg capsule (Lyrica) 300 mg PO TID 08/19/19 12/08/21 History doxepin 100 mg capsule 100 mg PO HS 12/08/21 12/08/21 History dulaglutide 1.5 mg/0.5 mL 1.5 mg subcut WK 12/08/21 12/08/21 [facility] fluticasone propionate 50 2 spray intranasal DAILY 12/08/21 12/08/21 History mcg/actuation nasal spray,suspension lamotrigine 100 mg tablet 100 mg PO DAILY 12/08/21 12/08/21 History levothyroxine 200 mcg tablet 200 mcg PO DAILY 12/08/21 12/08/21 History (Synthroid) levothyroxine 75 mcg capsule 75 mcg PO DAILY 12/08/21 12/08/21 History lurasidone 60 mg tablet (Latuda) 60 mg PO DAILY 12/08/21 12/08/21 History oxcarbazepine 300 mg tablet 600 mg PO QAM 12/08/21 12/08/21 History prazosin 5 mg capsule 5 mg PO HS 12/08/21 12/08/21 History dexamethasone 6 mg tablet 6 mg PO DAILY 5 days #5 tabs 12/13/21 Rx (Decadron) Past Med/Surg History Medical History (Updated 12/12/21 @ 14:46 by Braxton Cho MD) Agoraphobia with panic attacks Anxiety and depression Asthma Using pro air in the mornings Chronic diarrhea Degenerative disc disease 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 Diabetes mellitus, type 2 Enlarged liver GERD (gastroesophageal reflux disease) Hyperlipidemia Hypertension Hypothyroidism Migraine Morbid obesity Palpitations on BB for this Sleep apnea CPAP DEVICE Stress incontinence Uterine mass Surgical History History of adenoidectomy History of appendectomy History of section X 3 History of cholecystectomy History of colonoscopy History of dilatation and curettage History of endoscopic sinus surgery History of esophagogastroduodenoscopy (EGD) History of tonsillectomy and adenoidectomy History of tooth extraction History of tubal ligation Nausea and vomiting after administration of anesthetic agent MIGRAINE HEADACHE-POST OP EGD/COLONOSCOPY 08/2019 Family History Other Past medical history not known due to adoption Social History Smoking Status: Never smoker Second Hand Exposure: No; Hx Alcohol Use: No Hx Substance Use: No Preferred Language: Latvian Communication Ability: Effective Visual Impairment: No Limitations Hearing Ability: Use of Hearing Aid Aircraft Seat Upholsterer Required: No Beliefs That Will Affect Care: None marital status: Current Living Situation: Spouse current occupational status: employed current occupation: homemaker Feels Safe at Home: Yes Childhood Exposure to Second-Hand Smoke: Yes caffeine: Yes (coffee) during the past year weight has: other Dental Care, Regularly: No Physical Activity Frequency: Does not Exercise Seatbelt Use: always Sunscreen Use: No Assistive Devices: Walker Review of Systems Review of Systems: Denies current changes in vision, hearing, taste, and smell, chest pain, abdominal pain, nausea, vomiting,hematemesis, melena, d ysuria, hematuria, and recent falls. All systems have been reviewed and are otherwise negative. Physical Exam Physical Exam: Physical Exam: General: In no acute distress, stated age, morbidly obese, good hygiene, non- toxic appearing HEENT: Normocephalic, atraumatic, no scleral icterus, pupils around round, symmetrical, and reactive to light, moist mucus membranes, trachea midline, no thyromegaly Chest/Pulm: No respiratory distress, symmetrical chest expansion, clear breath sounds throughout Cardiac: tachycaridc rate, regular rhythm, no murmurs noted Abdomen: Negative for ascites and bruising, normoactive bowel sounds, soft, non-tender to palpation throughout Musculoskeletal: Symmetrical and without signs of acute trauma, upper and lower extremities with full ROM, no atrophy, spasticity, or flaccidity Extremities: Radial, dorsalis pedis, and posterior tibial pulses are intact and symmetrical, no edema noted in the BL LE's Skin: Warm, dry, no rashes , lesions, or scars noted Neuro: Alert and oriented to person, place, month, year, and president, no focal defects, CN II-XII tested and intact, finger to nose test negative, no tremors noted Psych: No acute distress, calm and cooperative during the exam Results & Data Results & Data ([facility]) Vital Signs (Past 12 Hours) Vital Signs Pulse Resp BP Pulse Ox O2 Del Method 12/08/21 16:50 102 H 25 H 152/80 H 12/08/21 16:40 101 H 14 12/08/21 16:36 172/95 H 12/08/21 16:36 120 H 19 12/08/21 16:30 116 H 18 12/08/21 16:20 119 H 24 12/08/21 16:00 119 H 16 12/08/21 15:45 117 H 19 12/08/21 15:30 116 H 16 12/08/21 15:15 116 H 19 12/08/21 15:10 120 H 19 12/08/21 14:30 126 H 13 12/08/21 14:28 181/112 H 12/08/21 14:28 127 H 20 95 12/08/21 14:27 126 H 22 95 12/08/21 14:38 125 H 25 H 181/112 H 96 Room Air Laboratory Results Abnormal lab results 12/08/21 12/08/21 12/08/21 Range/Units 15:09 15:09 15:09 Lymph # (Auto) 0.62 L (1.2-3.4) K/uL Immature Gran # (Auto) 0.03 H (0.00-0.02) K/uL Anion Gap 13 H (3-11) Glucose 100 H (70-99(Fasting)) mg/dl Alkaline Phosphatase 114 H (34-104) U/L SARS-CoV-2 (PCR) POSITIVE A* (Negative) Diagnostic Findings Chest X-Ray 12/08/21 14:42 SINGLE VIEW CHEST CLINICAL HISTORY: Dyspnea. Covid FINDINGS: An AP, portable, upright chest radiograph is compared to study dated 07/24/2020 and correlated with chest CT dated 11/12/2019. The heart is enlarged. The pulmonary vasculature is noncongested. Mild atelectasis is seen at the lung bases. The lungs and pleural spaces are otherwise clear. No pneumothorax is seen. The skeletal structures appear osteopenic. The bony thorax is grossly intact. IMPRESSION: Cardiac enlargement with no active disease in the chest. ACT 112: Negative or not required by law. Electronically signed by: Jacob Choudhary M.D. 12/08/2021 5:30 PM ECG Additional Comments: Sinus tachycardia Minimal voltage criteria for LVH, may be normal variant Cannot rule out Anterior infarct , age undetermined Abnormal ECG When compared with ECG of 24-JUL-2020 17:47, No significant change was found Code Status & VTE Plan Code Status Full Code VTE Prophylaxis Plan VTE Prophylaxis will be ordered: Yes Supervising Physician Co-Signing Physician Notes Patient seen and examined at bedside. During face to face encounter obtained a history and physical examination. I reviewed above note and agree with it. Plan of care discussed with patient and APC Peno. Patient admitted for COVID 19. May require decadron if becomes hypoxic. PG Care Time/CCT Total # of Minutes Spent Total Time Spent with Patient: Total time spent is greater than 50% in coordination of care (as documented) at patient's floor/unit and/or counseling patient: [place] [address] Initial Inpt Care Lvl 2 Patient Type Established Medical Decision Making Moderate Complexity Diagnoses COVID-19 U07.1 Asthma J45.909 T2DM (type 2 diabetes mellitus) E11.9 Hypertension I10 Depression with anxiety F41.8 PTSD (post-traumatic stress disorder) F43.10 Hypothyroidism E03.9 GERD (gastroesophageal reflux disease) K21.9 STEPHEN (obstructive sleep apnea) G47.33
[2021-12-08] MEDS ORDERED: SUMAtriptan succinate 100 MG TAB PO PRN (18:41)
[2021-12-08] MEDS ORDERED: GLUCOSE 40% GEL 15 GM TUBE PO PRN (18:41)
[2021-12-08] MEDS ORDERED: ACETAMINOPHEN 325 MG TAB PO PRN (18:41)
[2021-12-08] MEDS ORDERED: MAGNESIUM SULFATE / D5W 1 GM/100 ML BAG IV ONE (18:41)
[2021-12-08] MEDS ORDERED: CARBOHYDRATES FOR HYPOGLYCEMIA PO PRN (18:41)
[2021-12-08] MEDS ORDERED: DEXTROSE 50% 50 ML SYRINGE IV PRN (18:41)
[2021-12-08] MEDS ORDERED: GLUCOSE 10 TAB/TUBE PO PRN (18:41)
[2021-12-08] MEDS ORDERED: ALBUT/IPRATROP 3MG/0.5MG NEB 3 ML VIAL INH PRN (18:41)
[2021-12-08] MEDS ORDERED: guaiFENesin SUGAR FREE 200 MG/10 ML UDC PO PRN (18:41)
[2021-12-08] MEDS ORDERED: GLUCAGON FOR INJ 1 MG VIAL SQ PRN (18:41)
[2021-12-08] MEDS: ALBUT/IPRATROP 3MG/0.5MG NEB 3 ML VIAL INH SCH (19:55)
[2021-12-08] MEDS: MoRPHine SULFATE 2 MG/ML CARP IV PRN (19:56)
[2021-12-08] MEDS: ENOXAPARIN INJ 40 MG/0.4 ML SYR SQ SCH (20:33)
[2021-12-08] MEDS: DOXEPIN HCL 50 MG CAPSULE PO SCH (20:35)
[2021-12-08] MEDS: CETIRIZINE HCL 10 MG TABLET PO SCH (20:35)
[2021-12-08] MEDS: LURASIDONE HCL 40 MG TAB PO SCH (20:35)
[2021-12-08] MEDS: lamoTRIgine 100 MG TAB PO SCH (20:35)
[2021-12-08] MEDS: PREGABALIN 150 MG CAP PO SCH (20:35)
[2021-12-08] MEDS: PRAZOSIN HCL 1 MG CAP PO SCH (20:36)
[2021-12-08] MEDS: PANTOprazole 40 MG TAB PO SCH (20:36)
[2021-12-08] MEDS: MONTELUKAST SODIUM 10 MG TABLET PO SCH (20:36)
[2021-12-08] MEDS: NovoLOG INSULIN PUMP SCH (20:45)
[2021-12-08] MEDS ORDERED: INSULIN ASPART 100 UNITS/ML VIAL SC PRN (21:00)
[2021-12-08] MEDS ORDERED: INSULIN ASPART PER UNIT SC SCH (21:00)
--- NOTE | 2021-12-08 22:02 | Electrocardiogram Report ---
Test Reason : Blood Pressure : / mmHG Vent. Rate : 123 BPM Atrial Rate : 123 BPM P-R Int : 142 ms QRS Dur : 080 ms QT Int : 328 ms P-R-T Axes : 037 014 009 degrees QTc Int : 469 ms Sinus tachycardia Minimal voltage criteria for LVH, may be normal variant Cannot rule out Anterior infarct , age undetermined Abnormal ECG When compared with ECG of 24-JUL-2020 17:47, No significant change was found Confirmed by Juan C Talbot ([id number]) on 12/08/2021 10:01:55 PM Referred By: Confirmed By:Juan C Talbot
[2021-12-08] MEDS: KETOROLAC TROMETHAMINE 15 MG/ML VIAL IV PRN (22:54)
[2021-12-09] MEDS: MoRPHine SULFATE 2 MG/ML CARP IV PRN ×4 (01:05→21:13)
[2021-12-09] MEDS: ONDANSETRON 4 MG OD TAB PO PRN ×2 (01:05→14:57)
[2021-12-09] MEDS: LEVOTHYROXINE SODIUM 125 MCG TABLET PO SCH (05:46)
[2021-12-09] MEDS: ALBUT/IPRATROP 3MG/0.5MG NEB 3 ML VIAL INH SCH ×3 (07:27→19:56)
[2021-12-09 07:45] LABS: Hematocrit (blood only) 33.8 % (34.1-44.9); Hemoglobin 11.4 g/dl (12.0-16.0); Mean Corpuscular Hemoglobin 29.8 pg (25.0-34.0); Mean Corpuscular Hgb Conc 33.7 g/dL (32.0-36.0); Mean Corpuscular Volume 88.3 fL (80.0-100.0); Mean Platelet Volume 9.7 fL (9.4-12.3); Platelet Count 181 K/uL (130-400); RDW Coefficient of Variation 12.5 % (11.5-14.5); Red Blood Count 3.83 M/uL (3.93-5.22); White Blood Count 6.14 K/ul (4.8-10.8)
[2021-12-09 07:48] LABS: BUN Creatinine Ratio 16.3 (10-20); Calcium 8.8 mg/dl (8.5-10.1); Est GFR (African American) 108.4 ml/min; Est GFR (Non-African American) 93.5 ml/min; Magnesium 2.3 mg/dl (1.7-2.4); Potassium 4.2 mmol/L (3.5-5.1)
[2021-12-09] MEDS: PREGABALIN 150 MG CAP PO SCH ×3 (08:15→21:24)
[2021-12-09] MEDS: NovoLOG INSULIN PUMP SCH ×4 (08:16→21:52)
[2021-12-09] MEDS: ENOXAPARIN INJ 40 MG/0.4 ML SYR SQ SCH ×2 (08:17→21:15)
[2021-12-09] MEDS: ATORVASTATIN 10 MG TAB PO SCH (08:18)
[2021-12-09] MEDS: FUROSEMIDE 40 MG TAB PO SCH (08:18)
[2021-12-09] MEDS: PANTOprazole 40 MG TAB PO SCH ×2 (08:18→21:17)
[2021-12-09] MEDS ORDERED: COUGH DROP (SUGAR FREE) LOZ 24 LOZ/1 BOX BUCCAL ONE (09:26)
[2021-12-09] MEDS: dexAMETHasone 6 MG in SYRINGE 0 ML IV SCH (12:30)
[2021-12-09] MEDS ORDERED: REMDESIVIR 200 MG in SODIUM CHLORIDE 0.9% 210 ML IV STA (17:34)
[2021-12-09] MEDS: clonazePAM 1 MG TAB PO PRN (18:34)
[2021-12-09] MEDS: LURASIDONE HCL 40 MG TAB PO SCH (21:16)
[2021-12-09] MEDS: DOXEPIN HCL 50 MG CAPSULE PO SCH (21:16)
[2021-12-09] MEDS: CETIRIZINE HCL 10 MG TABLET PO SCH (21:16)
[2021-12-09] MEDS: lamoTRIgine 100 MG TAB PO SCH (21:16)
[2021-12-09] MEDS: MONTELUKAST SODIUM 10 MG TABLET PO SCH (21:17)
[2021-12-09] MEDS: PRAZOSIN HCL 1 MG CAP PO SCH (21:18)
--- NOTE | 2021-12-09 21:18 | Hospitalist Progress Note ---
Date of Service December 09, 2021 Assessment & Plan (1) COVID-19: Plan: -Admit to PCU as patient is high risk for decompensation with her multiple comorbidities -Now requiring dexamethasone and remdesevir due to requiring oxygen. -Continue scheduled DuoNeb q4h and incentive spirometry -Monitor respiratory status and treat symptomatically for now -Will monitor CRP and procal -Monitor on tele and continuous pulse oximetry (2) Asthma: Plan: -Patient is currently without respiratory distress and stable on 2 L NC -Will give 1g IV mag to help prevent asthma exacerbation -Continue breath treatments and monitor respiratory status (3) T2DM (type 2 diabetes mellitus): Plan: -Patient uses insulin pump for basal and bolus dosing -Spoke to pharmacy, ok for patient to use own pump, order placed -Will monitor BSG ACHS (4) Hypertension: Plan: -BP currently 152/80 -Was given 10 mg IV labetalol for HTN and headache prior to admission -Only on Prazosin for nightmares, continue for now (5) Depression with anxiety: Plan: -Continue lamictal, latuda, Wellbutin, clonazepam, and lyrica (6) PTSD (post-traumatic stress disorder): Plan: -See depression and anxiety (7) Hypothyroidism: Plan: -Continue Synthroid; patient said she was on Generic medication prior and it did not work, has to have Synthroid (8) GERD (gastroesophageal reflux disease): Plan: -Continue esomeprazole magnesium (9) STEPHEN (obstructive sleep apnea): Plan: -HS CPAP orde placed Admission and Anticipated Discharge Date Admission Date: December 08, 2021 Subjective Patient reports feeling comfortable on 2 liters nasal cannula. She reports inabiity to lie on her chest due to her insulin pump. Review of Systems Review of Systems: All systems reviewed & are unremarkable except as noted in HPI & below Physical Exam Physical Exam: General:In no acute distress, stated age, morbidly obese, good hygiene, non-toxic appearing HEENT:Normocephalic, atraumatic, no scleral icterus, pupils around round, symmetrical, and reactive to light, moist mucus membranes, trachea midline, no thyromegaly Chest/Pulm:No respiratory distress, symmetrical chest expansion, rhonchi heard at bases Cardiac:tachycaridc rate, regular rhythm, no murmurs noted Abdomen:Negative for ascites and bruising, normoactive bowel sounds, soft, non-tender to palpation throughout Musculoskeletal:Symmetrical and without signs of acute trauma, upper and lower extremities with full ROM, no atrophy, spasticity, or flaccidity Extremities:Radial, dorsalis pedis, and posterior tibial pulses are intact and symmetrical, no edema noted in the BL LE's Skin:Warm, dry, no rashes , lesions, or scars noted Neuro:Alert and oriented to person, place, month, year, and president, no focal defects, CN II-XII tested and intact, finger to nose test negative, no tremors noted Psych:No acute distress, calm and cooperative during the exam Results & Data Results & Data ([facility]) Vital Signs (Past 12 Hours) Vital Signs Temp Pulse Pulse Resp BP Pulse Ox O2 Del Method 12/09/21 19:57 101 H 18 93 Nasal Cannula 12/09/21 17:04 101 H 19 96 Nasal Cannula 12/09/21 12:14 36.9 C 72 18 135/70 96 12/09/21 11:07 109 H 12/09/21 11:07 Nasal Cannula 12/09/21 11:04 85 16 96 Nasal Cannula O2 Flow Rate 12/09/21 19:57 2 12/09/21 17:04 2 12/09/21 12:14 12/09/21 11:07 12/09/21 11:07 2 12/09/21 11:04 2 PG Care Time/CCT Total # of Minutes Spent Total Time Spent with Patient: Total time spent is greater than 50% in coordination of care (as documented) at patient's floor/unit and/or counseling patient: Coding Level of Care Code 66112 Subseq Hosp Care Lvl 2 Diagnoses COVID-19 U07.1 Asthma J45.909 T2DM (type 2 diabetes mellitus) E11.9 Hypertension I10 Depression with anxiety F41.8 PTSD (post-traumatic stress disorder) F43.10 Hypothyroidism E03.9 GERD (gastroesophageal reflux disease) K21.9 STEPHEN (obstructive sleep apnea) G47.33
[2021-12-10] MEDS: ONDANSETRON 4 MG OD TAB PO PRN ×2 (00:59→06:22)
[2021-12-10] MEDS: MoRPHine SULFATE 2 MG/ML CARP IV PRN ×3 (01:00→19:45)
[2021-12-10] MEDS: clonazePAM 1 MG TAB PO PRN ×3 (01:17→21:45)
[2021-12-10] MEDS: ALBUT/IPRATROP 3MG/0.5MG NEB 3 ML VIAL INH SCH ×5 (02:45→19:23)
[2021-12-10] MEDS: guaiFENesin 600 MG TABCR PO PRN ×2 (06:22→22:53)
[2021-12-10 06:29] LABS: Hematocrit (blood only) 32.9 % (34.1-44.9); Hemoglobin 10.9 g/dl (12.0-16.0); Mean Corpuscular Hemoglobin 29.9 pg (25.0-34.0); Mean Corpuscular Hgb Conc 33.1 g/dL (32.0-36.0); Mean Corpuscular Volume 90.1 fL (80.0-100.0); Mean Platelet Volume 9.8 fL (9.4-12.3); Platelet Count 201 K/uL (130-400); RDW Coefficient of Variation 12.9 % (11.5-14.5); RDW Standard Deviation 42.5 fL (36.4-46.3); Red Blood Count 3.65 M/uL (3.93-5.22); White Blood Count 9.68 K/ul (4.8-10.8)
[2021-12-10] MEDS: LEVOTHYROXINE SODIUM 125 MCG TABLET PO SCH (06:39)
[2021-12-10 07:04] LABS: BUN Creatinine Ratio 20.5 (10-20); C Reactive Protein 3.79 mg/dl (0-0.5); Calcium 8.4 mg/dl (8.5-10.1); Creatinine Clr Calc Pharmacy 111.6 ml/min; Est GFR (African American) 96.6 ml/min; Est GFR (Non-African American) 83.3 ml/min; Magnesium 2.3 mg/dl (1.7-2.4); Potassium 4.3 mmol/L (3.5-5.1)
[2021-12-10] MEDS: NovoLOG INSULIN PUMP SCH ×4 (08:46→21:58)
[2021-12-10] MEDS: ATORVASTATIN 10 MG TAB PO SCH (08:49)
[2021-12-10] MEDS: ENOXAPARIN INJ 40 MG/0.4 ML SYR SQ SCH ×2 (08:49→18:33)
[2021-12-10] MEDS: PANTOprazole 40 MG TAB PO SCH ×2 (08:50→21:48)
[2021-12-10] MEDS: FUROSEMIDE 40 MG TAB PO SCH (08:50)
[2021-12-10] MEDS: PREGABALIN 150 MG CAP PO SCH ×3 (08:57→21:45)
[2021-12-10] MEDS: dexAMETHasone 6 MG in SYRINGE 0 ML IV SCH (11:48)
[2021-12-10] MEDS ORDERED: PROCHLORPERAZINE 10 MG in SYRINGE 8 ML IV ONE (17:30)
[2021-12-10] MEDS ORDERED: diphenhydrAMINE 50 MG/ML VIAL IV STA (17:30)
--- NOTE | 2021-12-10 21:27 | Hospitalist Progress Note ---
Date of Service December 10, 2021 Assessment & Plan (1) COVID-19: Plan: -Admit to PCU as patient is high risk for decompensation with her multiple comorbidities -Now requiring dexamethasone and remdesevir due to requiring oxygen. -Continue scheduled DuoNeb q4h and incentive spirometry -Monitor respiratory status and treat symptomatically for now -Will monitor CRP and procal -Monitor on tele and continuous pulse oximetry ON 12/10, continues to have headache and sob will continue remdesevir and steroids. will order migraine cocktail (2) Asthma: Plan: -Patient is currently without respiratory distress and stable on 2 L NC -Will give 1g IV mag to help prevent asthma exacerbation -Continue breath treatments and monitor respiratory status (3) T2DM (type 2 diabetes mellitus): Plan: -Patient uses insulin pump for basal and bolus dosing -Spoke to pharmacy, ok for patient to use own pump, order placed -Will monitor BSG ACHS (4) Hypertension: Plan: -BP currently 152/80 -Was given 10 mg IV labetalol for HTN and headache prior to admission -Only on Prazosin for nightmares, continue for now (5) Depression with anxiety: Plan: -Continue lamictal, latuda, Wellbutin, clonazepam, and lyrica (6) PTSD (post-traumatic stress disorder): Plan: -See depression and anxiety (7) Hypothyroidism: Plan: -Continue Synthroid; patient said she was on Generic medication prior and it did not work, has to have Synthroid (8) GERD (gastroesophageal reflux disease): Plan: -Continue esomeprazole magnesium (9) STEPHEN (obstructive sleep apnea): Plan: -HS CPAP orde placed Admission and Anticipated Discharge Date Admission Date: December 08, 2021 Subjective 36 yo female reports having a headache. She has no new symptoms. She also continues to feel SOB. Review of Systems Review of Systems: All systems reviewed & are unremarkable except as noted in HPI & below Physical Exam 2 Physical Exam: General:In no acute distress, stated age, morbidly obese, good hygiene, non-toxic appearing HEENT:Normocephalic, atraumatic, no scleral icterus, pupils around round, symmetrical, and reactive to light, moist mucus membranes, trachea midline, no thyromegaly Chest/Pulm:No respiratory distress, symmetrical chest expansion, rhonchi heard at bases Cardiac:tachycaridc rate, regular rhythm, no murmurs noted Abdomen:Negative for ascites and bruising, normoactive bowel sounds, soft, non-tender to palpation throughout Musculoskeletal:Symmetrical and without signs of acute trauma, upper and lower extremities with full ROM, no atrophy, spasticity, or flaccidity Extremities:Radial, dorsalis pedis, and posterior tibial pulses are intact and symmetrical, no edema noted in the BL LE's Skin:Warm, dry, no rashes , lesions, or scars noted Neuro:Alert and oriented to person, place, month, year, and president, no focal defects, CN II-XII tested and intact, finger to nose test negative, no balbir mors noted Psych:No acute distress, calm and cooperative during the exam Results & Data Results & Data ([facility]) Vital Signs (Past 12 Hours) Vital Signs Temp Pulse Pulse Resp BP Pulse Ox O2 Del Method 12/10/21 20:17 36.9 C 102 H 22 114/89 94 Nasal Cannula 12/10/21 19:24 106 H 16 95 Room Air 12/10/21 16:00 89 12/10/21 15:11 105 H 18 94 Nasal Cannula 12/10/21 15:00 36.9 C 108 H 22 132/110 H 96 Nasal Cannula 12/10/21 11:21 118 H 18 93 Nasal Cannula 12/10/21 11:14 36.8 C 120 H 22 115/69 96 Nasal Cannula O2 Flow Rate 12/10/21 20:17 2 12/10/21 19:24 12/10/21 16:00 12/10/21 15:11 2 12/10/21 15:00 2 12/10/21 11:21 2 12/10/21 11:14 2 PG Care Time/CCT Total # of Minutes Spent Total Time Spent with Patient: Total time spent is greater than 50% in coordination of care (as documented) at patient's floor/unit and/or counseling patient: Coding Level of Care Code 87447 Subseq Hosp Care Lvl 2 Diagnoses COVID-19 U07.1 Asthma J45.909 T2DM (type 2 diabetes mellitus) E11.9 Hypertension I10 Depression with anxiety F41.8 PTSD (post-traumatic stress disorder) F43.10 Hypothyroidism E03.9 GERD (gastroesophageal reflux disease) K21.9 STEPHEN (obstructive sleep apnea) G47.33
[2021-12-10] MEDS: LURASIDONE HCL 40 MG TAB PO SCH (21:48)
[2021-12-10] MEDS: MONTELUKAST SODIUM 10 MG TABLET PO SCH (21:48)
[2021-12-10] MEDS: CETIRIZINE HCL 10 MG TABLET PO SCH (21:48)
[2021-12-10] MEDS: DOXEPIN HCL 50 MG CAPSULE PO SCH (21:48)
[2021-12-10] MEDS: lamoTRIgine 100 MG TAB PO SCH (21:48)
[2021-12-10] MEDS: PRAZOSIN HCL 1 MG CAP PO SCH (21:49)
[2021-12-10] MEDS: REMDESIVIR 100 MG in SODIUM CHLORIDE 0.9% 230 ML IV SCH (21:58)
[2021-12-11] MEDS: MoRPHine SULFATE 2 MG/ML CARP IV PRN ×3 (01:24→18:08)
[2021-12-11] MEDS: ONDANSETRON 4 MG OD TAB PO PRN ×2 (01:30→13:56)
[2021-12-11] MEDS: LEVOTHYROXINE SODIUM 125 MCG TABLET PO SCH (05:33)
[2021-12-11 06:58] LABS: Hematocrit (blood only) 35.4 % (34.1-44.9); Hemoglobin 11.8 g/dl (12.0-16.0); Mean Corpuscular Hemoglobin 29.9 pg (25.0-34.0); Mean Corpuscular Hgb Conc 33.3 g/dL (32.0-36.0); Mean Corpuscular Volume 89.6 fL (80.0-100.0); Mean Platelet Volume 9.6 fL (9.4-12.3); Platelet Count 210 K/uL (130-400); RDW Coefficient of Variation 12.9 % (11.5-14.5); RDW Standard Deviation 42.5 fL (36.4-46.3); Red Blood Count 3.95 M/uL (3.93-5.22); White Blood Count 9.48 K/ul (4.8-10.8)
[2021-12-11] MEDS: ALBUT/IPRATROP 3MG/0.5MG NEB 3 ML VIAL INH SCH ×4 (07:20→19:46)
[2021-12-11] MEDS: FUROSEMIDE 40 MG TAB PO SCH (07:45)
[2021-12-11] MEDS: PANTOprazole 40 MG TAB PO SCH ×2 (07:46→20:54)
[2021-12-11] MEDS: ATORVASTATIN 10 MG TAB PO SCH (07:46)
[2021-12-11 07:48] LABS: BUN Creatinine Ratio 22.7 (10-20); Calcium 8.9 mg/dl (8.5-10.1); Creatinine Clr Calc Pharmacy 111.6 ml/min; Est GFR (African American) 96.6 ml/min; Est GFR (Non-African American) 83.3 ml/min; Magnesium 2.3 mg/dl (1.7-2.4); Potassium 4.4 mmol/L (3.5-5.1)
[2021-12-11] MEDS: PREGABALIN 150 MG CAP PO SCH ×3 (07:52→20:55)
[2021-12-11] MEDS: NovoLOG INSULIN PUMP SCH ×4 (09:20→20:59)
[2021-12-11] MEDS: guaiFENesin 600 MG TABCR PO PRN ×2 (10:07→20:59)
[2021-12-11] MEDS: clonazePAM 1 MG TAB PO PRN ×2 (10:07→18:08)
[2021-12-11] MEDS: ENOXAPARIN INJ 40 MG/0.4 ML SYR SQ SCH ×2 (10:08→20:51)
[2021-12-11] MEDS: dexAMETHasone 6 MG in SYRINGE 0 ML IV SCH (13:55)
[2021-12-11] MEDS ORDERED: BENZONATATE 100 MG CAPSULE PO ONE (18:49)
[2021-12-11] MEDS ORDERED: BENZONATATE 100 MG CAPSULE PO PRN (18:49)
[2021-12-11] MEDS: DOXEPIN HCL 50 MG CAPSULE PO SCH (20:53)
[2021-12-11] MEDS: LURASIDONE HCL 40 MG TAB PO SCH (20:53)
[2021-12-11] MEDS: lamoTRIgine 100 MG TAB PO SCH (20:53)
[2021-12-11] MEDS: CETIRIZINE HCL 10 MG TABLET PO SCH (20:53)
[2021-12-11] MEDS: MONTELUKAST SODIUM 10 MG TABLET PO SCH (20:54)
[2021-12-11] MEDS: PRAZOSIN HCL 1 MG CAP PO SCH (20:55)
[2021-12-11] MEDS: REMDESIVIR 100 MG in SODIUM CHLORIDE 0.9% 230 ML IV SCH (21:09)
--- NOTE | 2021-12-11 23:44 | Hospitalist Progress Note ---
Date of Service December 11, 2021 Assessment & Plan (1) COVID-19: Plan: -Admit to PCU as patient is high risk for decompensation with her multiple comorbidities -Now requiring dexamethasone and remdesevir due to requiring oxygen. -Continue scheduled DuoNeb q4h and incentive spirometry -Monitor respiratory status and treat symptomatically for now -Will monitor CRP and procal -Monitor on tele and continuous pulse oximetry ON 12/10, continues to have headache and sob will continue remdesevir and steroids. will order migraine cocktail ON 12/11 Patient continues to slowlu improve. Her oxygen was removed slowly (initially she was not told to assess i02 sat with out causing any anxiety) Once informed, concern over need for oxygen when ambulating. Will obtain 2 step on 12/12, or 12/13 Patient also asking for 02 sleep study prior to discharge. Patient would likely benefit from 2 more days of remdesevirm due to her symptoms and obesity. cpntinue dexamethasone. (2) Asthma: Plan: -Patient is currently without respiratory distress and stable on 2 L NC -Will give 1g IV mag to help prevent asthma exacerbation -Continue breath treatments and monitor respiratory status (3) T2DM (type 2 diabetes mellitus): Plan: -Patient uses insulin pump for basal and bolus dosing -Spoke to pharmacy, ok for patient to use own pump, order placed -Will monitor BSG ACHS (4) Hypertension: Plan: -BP currently 152/80 -Was given 10 mg IV labetalol for HTN and headache prior to admission -Only on Prazosin for nightmares, continue for now (5) Depression with anxiety: Plan: -Continue lamictal, latuda, Wellbutin, clonazepam, and lyrica (6) PTSD (post-traumatic stress disorder): Plan: -See depression and anxiety (7) Hypothyroidism: Plan: -Continue Synthroid; patient said she was on Generic medication prior and it did not work, has to have Synthroid (8) GERD (gastroesophageal reflux disease): Plan: -Continue esomeprazole magnesium (9) STEPHEN (obstructive sleep apnea): Plan: -HS CPAP orde placed Admission and Anticipated Discharge Date Admission Date: December 08, 2021 Subjective Patient reports she is less SOB and having less frequent headaches. Patient feels SOB, lightheaded when she ambulates to the toilet. Review of Systems Review of Systems: All systems reviewed & are unremarkable except as noted in HPI & below Physical Exam Physical Exam: General:In no acute distress, stated age, morbidly obese, good hygiene, non-toxic appearing HEENT:Normocephalic, atraumatic, no scleral icterus, pupils around round, symmetrical, and reactive to light, moist mucus membranes, trachea midline, no thyromegaly Chest/Pulm:No respiratory distress, symmetrical chest expansion, rhonchi heard at bases Cardiac:tachycaridc rate, regular rhythm, no murmurs noted Abdomen:Negative for ascites and bruising, normoactive bowel sounds, soft, non-tender to palpation throughout Musculoskeletal:Symmetrical and without signs of acute trauma, upper and lower extremities with full ROM, no atrophy, spasticity, or flaccidity Extremities:Radial, dorsalis pedis, and posterior tibial pulses are intact and symmetrical, no edema noted in the BL LE's Skin:Warm, dry, no rashes , lesions, or scars noted Neuro:Alert and oriented to person, place, month, year, and president, no focal defects, CN II-XII tested and intact, finger to nose test negative, no tremors noted Psych:No acute distress, calm and cooperative during the exam Results & Data Results & Data ([facility]) Vital Signs (Past 12 Hours) Vital Signs Temp Pulse Pulse Resp BP Pulse Ox O2 Del Method 12/11/21 23:28 36.8 C 120 H 16 104/72 98 CPAP 12/11/21 22:41 125 H 12/11/21 22:32 117 H 13 94 12/11/21 19:48 101 H 18 96 Room Air 12/11/21 19:15 36.9 C 105 H 19 133/81 97 Room Air 12/11/21 15:00 96 Room Air 12/11/21 16:40 37.1 C 118 H 20 105/70 97 Room Air 12/11/21 15:32 90 18 98 Room Air O2 Flow Rate 12/11/21 23:28 4 12/11/21 22:41 12/11/21 22:32 4 12/11/21 19:48 12/11/21 19:15 12/11/21 15:00 12/11/21 16:40 12/11/21 15:32 PG Care Time/CCT Total # of Minutes Spent Total Time Spent with Patient: Total time spent is greater than 50% in coordination of care (as documented) at patient's floor/unit and/or counseling patient: Coding Level of Care Code 13940 Subseq Hosp Care Lvl 2 Diagnoses COVID-19 U07.1 Asthma J45.909 T2DM (type 2 diabetes mellitus) E11.9 Hypertension I10 Depression with anxiety F41.8 PTSD (post-traumatic stress disorder) F43.10 Hypothyroidism E03.9 GERD (gastroesophageal reflux disease) K21.9 STEPHEN (obstructive sleep apnea) G47.33 Time Spent (min) 25
[2021-12-12] MEDS: MoRPHine SULFATE 2 MG/ML CARP IV PRN ×2 (04:29→10:10)
[2021-12-12] MEDS: ONDANSETRON 4 MG OD TAB PO PRN (04:29)
[2021-12-12] MEDS: LEVOTHYROXINE SODIUM 125 MCG TABLET PO SCH (05:45)
[2021-12-12 07:15] LABS: Hematocrit (blood only) 35.6 % (34.1-44.9); Hemoglobin 11.8 g/dl (12.0-16.0); Mean Corpuscular Hemoglobin 29.6 pg (25.0-34.0); Mean Corpuscular Hgb Conc 33.1 g/dL (32.0-36.0); Mean Corpuscular Volume 89.2 fL (80.0-100.0); Mean Platelet Volume 9.5 fL (9.4-12.3); Platelet Count 223 K/uL (130-400); RDW Coefficient of Variation 12.9 % (11.5-14.5); RDW Standard Deviation 42.5 fL (36.4-46.3); Red Blood Count 3.99 M/uL (3.93-5.22); White Blood Count 10.12 K/ul (4.8-10.8)
[2021-12-12 07:29] LABS: Creatinine Clr Calc Pharmacy 98.7 ml/min; Est GFR (African American) 82.8 ml/min; Est GFR (Non-African American) 71.4 ml/min
[2021-12-12] MEDS: NovoLOG INSULIN PUMP SCH ×4 (07:30→21:12)
[2021-12-12] MEDS: ALBUT/IPRATROP 3MG/0.5MG NEB 3 ML VIAL INH SCH ×4 (07:32→19:20)
[2021-12-12 07:33] LABS: BUN Creatinine Ratio 23.2 (10-20); C Reactive Protein 1.52 mg/dl (0-0.5); Calcium 8.8 mg/dl (8.5-10.1); Creatinine Clr Calc Pharmacy 99.7 ml/min; Est GFR (African American) 83.8 ml/min; Est GFR (Non-African American) 72.3 ml/min
[2021-12-12] MEDS: ATORVASTATIN 10 MG TAB PO SCH (09:06)
[2021-12-12] MEDS: PANTOprazole 40 MG TAB PO SCH ×2 (09:06→20:43)
[2021-12-12] MEDS: PREGABALIN 150 MG CAP PO SCH ×3 (09:06→20:44)
[2021-12-12] MEDS: ENOXAPARIN INJ 40 MG/0.4 ML SYR SQ SCH ×2 (09:07→20:38)
[2021-12-12] MEDS: FUROSEMIDE 40 MG TAB PO SCH (09:07)
[2021-12-12] MEDS: clonazePAM 1 MG TAB PO PRN ×2 (09:11→20:45)
[2021-12-12] MEDS: guaiFENesin 600 MG TABCR PO PRN (10:11)
[2021-12-12] MEDS ORDERED: ACETAMINOPHEN 1,000 MG/100 ML VIAL IV PRN (10:40)
[2021-12-12] MEDS ORDERED: POLYETHYLENE (MIRALAX) 17 GM PACK PO PRN (11:48)
[2021-12-12] MEDS: dexAMETHasone 6 MG in SYRINGE 0 ML IV SCH (12:49)
--- NOTE | 2021-12-12 14:49 | Hospitalist Progress Note ---
Date of Service December 12, 2021 Assessment & Plan (1) COVID-19: Plan: Tested positive for covid 19 Patient continues to improve. Her oxygen was removed slowly (initially she was not told to assess i02 sat without causing any anxiety) currently saturating well on room air, however, gets SOB when she ambulates Will obtain 2 step prior to discharge Patient would likely benefit from 1 more days of remdesevir due to her symptoms and obesity. continue dexamethasone. (2) Hypoxia: Plan: secondary to covid 19 initially on oxygen, weaned off now on room air will need 2 step prior to discharge (3) Asthma: Plan: -Patient is currently without respiratory distress and stable on 2 L NC -Will give 1g IV mag to help prevent asthma exacerbation -Continue breath treatments and monitor respiratory status (4) T2DM (type 2 diabetes mellitus): Plan: -Patient uses insulin pump for basal and bolus dosing -Spoke to pharmacy, ok for patient to use own pump, order placed -Will monitor BSG ACHS (5) Hypertension: Plan: -BP currently 116/80 -Was given 10 mg IV labetalol for HTN and headache prior to admission -Only on Prazosin for nightmares, continue for now (6) Depression with anxiety: Plan: -Continue lamictal, latuda, Wellbutin, clonazepam, and lyrica (7) PTSD (post-traumatic stress disorder): Plan: -See depression and anxiety (8) Hypothyroidism: Plan: -Continue Synthroid; patient said she was on Generic medication prior and it did not work, has to have Synthroid (9) GERD (gastroesophageal reflux disease): Plan: -Continue esomeprazole magnesium (10) STEPHEN (obstructive sleep apnea): Plan: -HS CPAP orde placed Plan hopefully d/c in the next 24 hrs Admission and Anticipated Discharge Date Admission Date: December 08, 2021 Subjective patient seen and examined, still complains of headache and SOB on exertion Review of Systems Review of Systems: All systems reviewed are negative, apart from the ones contained in the history. Physical Exam Physical Exam: The patient is awake, alert and oriented 3, well developed and well nourished, normocephalic and atraumatic, lying in bed and in no acute distress. HEENT--PERRL, EOMI, mucous membranes and oropharynx mildly dry Neck--supple. No JVD. No bruits. Thyroid normal, trachea midline, no adenopathy. Heart--normal S1 and S2. No murmurs, rubs or gallops. Lungs--clear bilaterally, no respiratory distress, no accessory muscle use. Abdomen--normal bowel sounds and soft. Mild epigastric and left sided abdominal pain Extremities--no cyanosis or clubbing. No edema. Dermatologic--normal skin turgor, normal color, no abnormal lymph nodes, no rash. Neurologic--cranial nerves II through XII grossly intact. Rheumatologic--normal range of motion. Psychiatric--normal affect. Results & Data Results & Data ([facility]) Vital Signs (Past 12 Hours) Vital Signs Temp Pulse Pulse Pulse Resp BP Pulse Ox 12/12/21 11:36 91 H 12/12/21 11:36 12/12/21 11:31 104 H 19 96 12/12/21 07:46 97.9 F 100 H 20 116/80 94 12/12/21 07:32 88 18 96 12/12/21 03:11 84 12 96 12/12/21 03:47 98.6 F 93 H 18 96/68 L 95 O2 Del Method O2 Flow Rate 12/12/21 11:36 12/12/21 11:36 Room Air 12/12/21 11:31 Room Air 12/12/21 07:46 Room Air 12/12/21 07:32 Room Air 12/12/21 03:11 4 12/12/21 03:47 CPAP PG Care Time/CCT Total # of Minutes Spent Total Time Spent with Patient: Total time spent is greater than 50% in coordination of care (as documented) at patient's floor/unit and/or counseling patient: Coding Level of Care Code 33943 Subseq Hosp Care Lvl 2 Diagnoses COVID-19 U07.1 Hypoxia R09.02 Asthma J45.909 T2DM (type 2 diabetes mellitus) E11.9 Hypertension I10 Depression with anxiety F41.8 PTSD (post-traumatic stress disorder) F43.10 Hypothyroidism E03.9 GERD (gastroesophageal reflux disease) K21.9 STEPHEN (obstructive sleep apnea) G47.33 Time Spent (min) 35
[2021-12-12] MEDS: KETOROLAC TROMETHAMINE 15 MG/ML VIAL IV PRN (16:03)
[2021-12-12] MEDS: REMDESIVIR 100 MG in SODIUM CHLORIDE 0.9% 230 ML IV SCH (20:39)
[2021-12-12] MEDS: CETIRIZINE HCL 10 MG TABLET PO SCH (20:40)
[2021-12-12] MEDS: DOXEPIN HCL 50 MG CAPSULE PO SCH (20:41)
[2021-12-12] MEDS: LURASIDONE HCL 40 MG TAB PO SCH (20:41)
[2021-12-12] MEDS: lamoTRIgine 100 MG TAB PO SCH (20:41)
[2021-12-12] MEDS: MONTELUKAST SODIUM 10 MG TABLET PO SCH (20:42)
[2021-12-12] MEDS: PRAZOSIN HCL 1 MG CAP PO SCH (20:44)
[2021-12-13] MEDS: LEVOTHYROXINE SODIUM 125 MCG TABLET PO SCH (06:01)
[2021-12-13] MEDS: ALBUT/IPRATROP 3MG/0.5MG NEB 3 ML VIAL INH SCH ×2 (07:14→10:54)
[2021-12-13 08:18] LABS: Creatinine Clr Calc Pharmacy 92.9 ml/min; Est GFR (African American) 77.1 ml/min; Est GFR (Non-African American) 66.6 ml/min
[2021-12-13] MEDS: NovoLOG INSULIN PUMP SCH ×2 (08:32→12:39)
[2021-12-13] MEDS: KETOROLAC TROMETHAMINE 15 MG/ML VIAL IV PRN (08:32)
[2021-12-13] MEDS: guaiFENesin 600 MG TABCR PO PRN (08:33)
[2021-12-13] MEDS: ENOXAPARIN INJ 40 MG/0.4 ML SYR SQ SCH (08:33)
[2021-12-13] MEDS: ATORVASTATIN 10 MG TAB PO SCH (08:34)
[2021-12-13] MEDS: PANTOprazole 40 MG TAB PO SCH (08:34)
[2021-12-13] MEDS: FUROSEMIDE 40 MG TAB PO SCH (08:34)
[2021-12-13] MEDS: PREGABALIN 150 MG CAP PO SCH (09:06)
--- NOTE | 2021-12-13 12:03 | Discharge Summary ---
Date of Service December 13, 2021 Admission HPI Per Admitting Provider Remedios is a 36 year old female with a PMH significant for Morbid obesity, asthma, STEPHEN on HS CPAP, HTN, Hyperlipidemia, DM II, GERD, Migraines, PTSD, Depress and anxiety who presented to the [facility] ED on 12/08/21 with a chief complaint of SOB. At the time of the exam the patient was sitting comfortably in bed in no acute distress. She states that she began developing upper respiratory symptoms including congestion, sore throat, post-nasal drip approximately 5 days ago, two days later she then developed a productive cough with green sputum, shortness of breath, and a headache. She states that she used her albuterol and DuoNeb inhalers without relief of her symptoms, she took a home covid test and it was positive. She states that she had covid back in 2019 and her SpO2 fell as low as 60% but the patient said she refused to go to the hospital at that time. She states that she now wants treatment because she is scared that her condition will acutely deteriorate. She does feel SOB at rest and states that she gets severely SOB and lightheaded when ambulating even to the bathroom. In the ED the patient was initially found to be febrile, hypertensive at 181/112, and stable on room air. Labs were remarkable for + Covid PCR, chest xray showed Cardiomegaly but no acute lung disease. In the ED the patient was given multiple toradol and morphine for her headache, 6 mg IV Dexamethasone, duoNeb nebulizer, a 1000 mL NSS bolus, and 10 mg IV labetalol. Principal Diagnosis COVID 19 PNA Discharge Exam The patient is awake, alert and oriented 3, well developed and well nourished, normocephalic and atraumatic, lying in bed and in no acute distress. HEENT--PERRL, EOMI, mucous membranes and oropharynx mildly dry Neck--supple. No JVD. No bruits. Thyroid normal, trachea midline, no adenopathy. Heart--normal S1 and S2. No murmurs, rubs or gallops. Lungs--clear bilaterally, no respiratory distress, no accessory muscle use. Abdomen--normal bowel sounds and soft. Mild epigastric and left sided abdominal pain Extremities--no cyanosis or clubbing. No edema. Dermatologic--normal skin turgor, normal color, no abnormal lymph nodes, no rash. Neurologic--cranial nerves II through XII grossly intact. Rheumatologic--normal range of motion. Psychiatric--normal affect. Discharge Data Allergies Allergy/AdvReac Type Severity Reaction Status Date / Time aripiprazole [From Abilify] Allergy Severe SWELLING Verified 12/08/21 15:17 OF LIPS bee venom protein (honey bee) Allergy Severe ANAPHYLAXIS Verified 12/08/21 15:17 Penicillins Allergy Severe QUIT Verified 12/08/21 15:17 BREATHING/SWELLING latex Allergy Intermediate HIVES,SOB Verified 12/08/21 15:17 benzoyl peroxide Allergy Mild RASH Verified 12/08/21 15:17 nickel Allergy Mild Rash Verified 12/08/21 15:17 permethrin Allergy Mild RASH Verified 12/08/21 15:17 Cephalosporins Allergy Unknown Unknown Verified 12/08/21 15:17 promethazine AdvReac Mild VOMITING Verified 12/08/21 15:17 Vinegar Allergy Severe EDEMA OF Uncoded 12/08/21 15:17 FACE, LIPS, TONGUE influenza vaccine AdvReac Mild swelling Uncoded 12/10/21 20:03 at injection site Consultations 12/08/21 17:11 ED Decision to Admit Stat Hospital Course (1) COVID-19: Tested positive for covid 19 Patient continues to improve. Her oxygen was removed slowly (initially she was not told to assess i02 sat without causing any anxiety) currently saturating well on room air, however, gets SOB when she ambulates 2 step showed she will need 2L of oxygen ambulation Will also give 5 more days of PO Dexamethasone upon d/c per patients request (2) Hypoxia: secondary to covid 19 initially on oxygen, weaned off now on room air will need 2 L of xygen on ambulation after 2 step (3) Asthma: -Patient is currently without respiratory distress and stable on 2 L NC -Will give 1g IV mag to help prevent asthma exacerbation -Continue breath treatments and monitor respiratory status (4) T2DM (type 2 diabetes mellitus): -Patient uses insulin pump for basal and bolus dosing -Spoke to pharmacy, ok for patient to use own pump, order placed -Will monitor BSG ACHS (5) Hypertension: -BP currently 116/80 -Was given 10 mg IV labetalol for HTN and headache prior to admission -Only on Prazosin for nightmares, continue for now (6) Depression with anxiety: -Continue lamictal, latuda, Wellbutin, clonazepam, and lyrica (7) PTSD (post-traumatic stress disorder): -See depression and anxiety (8) Hypothyroidism: -Continue Synthroid; patient said she was on Generic medication prior and it did not work, has to have Synthroid (9) GERD (gastroesophageal reflux disease): -Continue esomeprazole magnesium (10) STEPHEN (obstructive sleep apnea): -HS CPAP orde placed Plan ddischarge home. oxygen has been set up Total Time Total Time Spent Total Time Spent (In Minutes): 35 Discharge Plan Discharge Items Patient Disposition: Home - Home Health Services Reason For Visit: SHORTNESS OF BREATH Discharge Diagnosis: COVID 19 PNA with hypoxia Condition on Discharge: Fair Activity: Resume your previous activity Non-emergency contact: Primary Care Provider and Marine Equipment Sales Engineer Call non-emergency contact if: you have any medication questions Follow-up/Referrals: Emmy Gallegos CRNP [Primary Care Provider] - 12/17/21 10:30 am Diet: Regular Addtl Attending Provider Instructions: please make appointment to follow up with your regular PCP Pending Studies at Discharge: No Stand-Alone Forms: My [employer]outh [employer], Smoking Cessation Medications and DC Order Prescriptions: New dexamethasone [Decadron] 6 mg tablet 6 mg PO DAILY 5 Days Qty: 5 0RF Continued ipratropium-albuterol 0.5 mg-3 mg(2.5 mg base)/3 mL solution for nebulization 3 ml INH QID PRN (Reason: wheezing) Qty: 3 0RF (DME) OneTouch Verio test strips Strip See Rx Instructions .ROUTE .MEDSUPPLY Qty: 10 Rx Instructions: Tests twice daily montelukast 10 mg tablet 10 mg PO HS cetirizine 10 mg tablet 10 mg PO HS esomeprazole magnesium 40 mg capsule,delayed release(DR/EC) 40 mg PO BID bupropion HCl 300 mg tablet extended release 24 hr 300 mg PO QAM Rx Instructions: TAKE ONE 300 MG TABLET ALONG WITH ONE 150 MG TABLET TO EQUAL 450 MG DAILY DOSE bupropion HCl 150 mg tablet extended release 24 hr 150 mg PO QAM Rx Instructions: TAKE ONE 150 MG TABLET ALONG WITH ONE 300 MG TABLET TO EQUAL 450 MG DAILY DOSE sumatriptan succinate 100 mg tablet 10 mg PO DIRECTED PRN (Reason: Migraine Headache) ondansetron 4 mg tablet,disintegrating 4 mg PO Q8H PRN (Reason: Nausea) clonazepam 1 mg tablet 1 mg PO TID PRN (Reason: Anxiety) pregabalin [Lyrica] 300 mg Capsule 300 mg PO TID albuterol sulfate [Proventil HFA] 90 mcg/actuation HFA aerosol inhaler 1 puffs INH QID PRN (Reason: SHORT OF BREATH) insulin glargine [Lantus U-100 Insulin] 100 unit/mL Solution 22 unit SUBCUT QPM insulin aspart U-100 [Novolog U-100 Insulin aspart] 100 unit/mL Solution 5 unit SUBCUT USEASDIRECTD Rx Instructions: 5 UNITS WITH MEALS> IN ADDITION TO SLIDING SCALE furosemide [Lasix] 40 mg Tablet 40 mg PO QAM PRN (Reason: Weight Gain) oxcarbazepine 300 mg tablet 600 mg PO QAM prazosin 5 mg capsule 5 mg PO HS doxepin 100 mg capsule 100 mg PO HS levothyroxine [Synthroid] 200 mcg tablet 200 mcg PO DAILY Rx Instructions: Take with 75mcg dose to equal 275mcg fluticasone propionate 50 mcg/actuation spray,suspension 2 spray INTRANASAL DAILY lamotrigine 100 mg tablet 100 mg PO DAILY levothyroxine 75 mcg Capsule 75 mcg PO DAILY Latuda 60 mg tablet 60 mg PO DAILY Trulicity 1.5 mg/0.5 mL pen injector 1.5 mg SUBCUT WK Discharge Orders: Discharge Order (Routine); Ordered 12/13/21 Ordered By: Braxton Cho Admission Data Admit Date/Time: 12/08/21 17:33 Attending Provider: Braxton Cho Admit Provider: Zen Alaniz Primary Care Provider: Emmy Gallegos Other Providers: Zen Alaniz ; [facility] ; [place] Other Interventions: Discharge Summary Assessment (RN) Last Done: 12/13/21 11:01 Coding Level of Care Code D/C DAY MANAGEMENT >30 MINS Diagnoses COVID-19 U07.1 Hypoxia R09.02 Asthma J45.909 T2DM (type 2 diabetes mellitus) E11.9 Hypertension I10 Depression with anxiety F41.8 PTSD (post-traumatic stress disorder) F43.10 Hypothyroidism E03.9 GERD (gastroesophageal reflux disease) K21.9 STEPHEN (obstructive sleep apnea) G47.33 Time Spent (min) 35
== END 2021-12-13 13:02 | disposition home health service (06) | DRG 177 ==
LOC: ED 14:23 → 2E 17:33 → SUATTDRO 17:33 → 2E 18:25
DX: K21.9 Gastro-esophageal reflux disease without esophagitis; Z96.41 Presence of insulin pump (external) (internal); J45.901 Unspecified asthma with (acute) exacerbation; R51.9 Headache, unspecified; E11.9 Type 2 diabetes mellitus without complications; F41.0 Panic disorder [episodic paroxysmal anxiety]; Z68.43 Body mass index [BMI] 50.0-59.9, adult; E78.5 Hyperlipidemia, unspecified; R09.02 Hypoxemia; Z79.51 Long term (current) use of inhaled steroids; Z88.8 Allergy status to other drugs, medicaments and biological substances; J12.82 Pneumonia due to coronavirus disease 2019; R63.0 Anorexia; U07.1 COVID-19; Z91.018 Allergy to other foods; F32.A Depression, unspecified; Z91.030 Bee allergy status; R42 Dizziness and giddiness; Z88.0 Allergy status to penicillin; Z79.4 Long term (current) use of insulin; R53.83 Other fatigue; E66.01 Morbid (severe) obesity due to excess calories; R19.7 Diarrhea, unspecified; M54.2 Cervicalgia; Z91.012 Allergy to eggs; G47.33 Obstructive sleep apnea (adult) (pediatric); Z79.899 Other long term (current) drug therapy; I10 Essential (primary) hypertension; Z86.16 Personal history of COVID-19; F43.10 Post-traumatic stress disorder, unspecified; Z91.040 Latex allergy status; E03.9 Hypothyroidism, unspecified; Z91.048 Other nonmedicinal substance allergy status; Z79.890 Hormone replacement therapy